=== PATIENT | female | born 1955 | race Caucasian/White ===

== ENCOUNTER 2019-03-19 07:46 | Emergency (ER) | payer SELFPAY ==
[2019-03-19] VITALS (14 sets, daily range): BP systolic 97–140; BP diastolic 54–95; PULSE 76–93; RESP 7–31; TEMP 36.7; O2SAT 89–99
--- NOTE | 2019-03-19 07:52 | DI.RAD_ITS ---
SYMPTOM/DIAGNOSIS: SHORTNESS OF BREATH, COUGH PORTABLE AP CHEST: 03/19 The heart is not enlarged. The lungs appear clear and well expanded. CONCLUSION: No evidence of acute disease.
--- NOTE | 2019-03-19 07:53 | ED.GENADUL_ITS ---
Discharge Plan Disposition Patient Disposition: HOME Condition: Stable Discharge Details Chief Complaint: SOB Clinical Impression: COPD exacerbation Primary Care Provider: Rajendra Franco ED Provider: Kadeem Chapa Home Meds and New Rx's Prescriptions: New prednisone 20 mg tablet 60 mg PO DAILY 5 Days Qty: 15 RF: 0 levofloxacin 750 mg tablet 750 mg PO DAILY Qty: 4 RF: 0 Continued acetaminophen [Acetaminophen Extra Strength] 500 MG tablet 1,000 mg PO Q4H PRN RF: 0 Flovent HFA 120 PUFF HFA aerosol inhaler 2 puff Inhalation BID Qty: 1 RF: 0 albuterol sulfate [ProAir HFA] 200 PUFF/INH HFA aerosol inhaler 2 puff Inhalation Q4H PRN PRNQty: 1 RF: 0 Discharge Instructions Instructions: COPD (Chronic Obstructive Pulmonary Disease) (ED) Additional Instructions: follow up with your primary care provider within 1-2 weeks if you feel more ill, have worsening shortness of breath or chest pain/pressure return to the emergency department Medical Decision Making 63 yo female with hx of halfway smoking history comes in with dyspnea and cough worsening over a week without chest pain/pressure, fevers, recent travel. She was given albuterol with ems en route and states it did help her symptoms. On exam she is in no severe distress able to speak in full sentences. She has coarse breath sounds bilaterally in all lung cowan with wheezing at the apices and prolonged expiratory phase consistent with copd exacerbation. Will treat with steroids and duonebs, and given her cough obtain cxr to eval for infiltrate. Denies chest pain or pressure, no jvd or peripheral edema so feel unlikely this is due to acs or chf. She has no evidence of dvt on exam, no pleuritic chest pain and her exam is consistent with copd so doubt PE at this time. NO distant heart sounds so doubt pericardial effusion/tamponade pt's labs and xray unremarkable, she remains stable. 90% on room air in no distress with improved lung sounds. Given increased cough will start oral abx and have her f/u with pcp withn a week and return precautions given Differential Diagnosis Differential Diagnosis: copd, pna, chf, acs Medical Records Medical records reviewed: Yes I reviewed the patient's medical records. Imaging Data Radiologic Study: Attestation: I personally reviewed and interpreted this imaging study as follows: Imaging: X-Ray Radiologist's impression: no acute findings Lab Data Lab results reviewed: Yes I reviewed the patient's lab results. ECG Data Attestation: I personally reviewed and interpreted this ECG (s) as follows: Prior ECG tracings: not available for review Interpretation: sinus rhythm, rate of 80, pr 132, qtc 456 HPI General Mode of arrival: EMS . Date/Time Provider Initiated Documentation: 03/19/19 07:49 . Limitations to Documentation: no limitations . Information obtained by: patient . History of Present Illness 63 year old F presents to the emergency department with the chief complaint of shortness of breath, described as moderate, Patient started experiencing this week(s) (2) No relieving factors improve symptom(s), No exacerbating factors reported . Patient did receive the following treatments prior to arrival, other (albuterol with ems) Related Data Home Medications Medication Instructions Recorded Confirmed acetaminophen [Acetaminophen Extra 1,000 mg PO Q4H PRN 07/05/14 03/19/19 Strength] Flovent HFA 2 puff INHALATION BID #1 inh 01/05/16 03/19/19 albuterol sulfate [ProAir HFA] 2 puff INHALATION Q4H PRN PRN #1 01/14/18 03/19/19 inh levofloxacin 750 mg PO DAILY #4 tab 03/19/19 prednisone 60 mg PO DAILY 5 Days #15 tab 03/19/19 Previous Rx's Medication Instructions Recorded Flovent HFA 2 puff INHALATION BID #1 inh 01/05/16 albuterol sulfate [ProAir HFA] 2 puff INHALATION Q4H PRN PRN #1 01/14/18 inh levofloxacin 750 mg PO DAILY #4 tab 03/19/19 prednisone 60 mg PO DAILY 5 Days #15 tab 03/19/19 Allergies Allergy/AdvReac Type Severity Reaction Status Date / Time oxycodone Allergy rash Unverified 03/19/19 08:18 Review of Systems Review of Systems ROS Unobtainable: All systems reviewed & are unremarkable except as noted in HPI and below Constitutional Constitutional: Denies chills, Denies fever(s) and Denies weakness ENT Ears, Nose, Mouth, and Throat: Denies change in voice Cardiovascular Cardiovascular: Denies chest pain Gastrointestinal Gastrointestinal: Denies abdominal pain, Denies nausea and Denies vomiting Musculoskeletal Musculoskeletal: Denies joint swelling Neurologic Neurologic: Denies weakness PFSH Social History Smoking/Tobacco Use Status: Current every day Tobacco Type: cigarettes Drug use: Never Do you feel safe in your relationship?: Yes Exam Const General: no acute distress Orientation: alert HENMT Head: normal to inspection Ears: external ears normal General nose exam: external nose normal Mouth: moist mucous membranes Eyes General: appearance normal, both eyes and all related structures Neck Neck: normal visual inspection Resp Effort & Inspection: prolonged expiratory phase Cardio Rate: regular rate Skin General skin exam: no rashes or lesions noted Neuro General: alert and oriented x3 Extrem General: normal to inspection Psych Mental Status: mental status grossly normal
[2019-03-19] MEDS: Albuterol/Ipratropium 3 ML UPD VIAL UPD ×2 (08:00→08:10)
[2019-03-19] MEDS: methylPREDNISolone SUCC 125 MG VIAL IVP (08:00)
[2019-03-19 08:13] LABS: Abs Immature Grans 0.03 k/cumm (0.0-0.09); Absolute Basophil Count 0.02 k/cumm (0.0-0.2); Absolute Lymphocyte Count 1.92 k/cumm (1.2-3.4); Absolute Monocyte Count 1.17 k/cumm (0.11-0.7); Absolute Neutrophil Count 7.77 k/cumm (1.2-6.7); Basophils % 0.2; Eosinophils % 0.5; HGB 12.2 g/dL (12.0-15.5); Immature Grans % 0.3; Lymphocytes % 17.5; Mean Corp. HGB Concentration 31.3 g/dL (32.0-36.0); Mean Corpuscular Volume 102.4 fL (80-95); Mean Platelet Volume 10.3 fL (8.0-11.0); Monocytes % 10.7; Neutrophils % 70.8; Platelet Count 314 x1000/uL (130-400); RBC 3.81 m/cumm (4.00-5.20); RBC Distribution Width 12.8 % (11.7-14.6); White Blood Cell Count 10.97 k/cumm (4.4-10.8)
[2019-03-19 08:20] LABS: Absolute Eosinophil Count 0.05 k/cumm (0.0-0.7)
[2019-03-19 08:26] LABS: INR 0.9 (0.9-1.1); PTT Activated 27.2 sec (21.0-31.4); Prothrombin Time 9.4 sec (9.3-11.0)
[2019-03-19 08:33] LABS: ALT 39 U/L (14-59); AST 33 U/L (15-37); Albumin 3.3 g/dL (3.4-5.0); Alkaline Phosphatase 77 U/L (46-116); Anion Gap 8.1 mmol/L (3-11); BUN 8 mg/dL (7-18); Bilirubin, Total 0.4 mg/dL (0.2-1.0); CO2 27.9 mmol/L (21.0-32.0); CREATININE 0.79 mg/dL (0.55-1.02); Calcium 8.1 mg/dL (8.5-10.1); Chloride 105 mmol/L (98-107); Glucose 104 mg/dL (70-100); Magnesium 1.9 mg/dL (1.8-2.4); NT-proBNP 284 pg/mL; Potassium 3.8 mmol/L (3.5-5.1); Sodium 141 mmol/L (136-145); Total Protein 7.3 g/dL (6.4-8.2)
[2019-03-19 08:34] LABS: Troponin I < 0.05 ng/mL (0.00-0.06)
[2019-03-19] MEDS: levoFLOXacin 500 MG, levoFLOXacin 250 MG 750 MG PO ×2 (08:55→08:56)
== END 2019-03-19 09:05 | disposition home or self-care (01) ==
PROVIDERS: Emergency Provider Emergency Medicine; PCP Specialist/Technologist Athletic Trainer
DX: J44.1 Chronic obstructive pulmonary disease with (acute) exacerbation (principal); F17.210 Nicotine dependence, cigarettes, uncomplicated
CPT/HCPCS: 36415; 80053; 93005; 94640; 96374; 99285; 71045; 83735; 83880; 84484; 85025; 85610; 85730; 93010; J2930; J7620

== ENCOUNTER 2020-11-15 07:12 | Outpatient (CLI) | payer MEDICARE, SELFPAY ==
[2020-11-15 11:35] LABS: HCT 40.2 % (36.0-46.0); HGB 13.2 g/dL (11.2-15.7); MCH 32.6 pg (27.0-33.0); MCHC 32.8 % (32.0-36.0); MCV 99.3 fL (80-95); MPV 10.7 fL (8.0-11.0); Platelet Count 289 10^3/uL (130-400); RBC 4.05 10^6/uL (3.93-5.22); RDW 12.5 % (11.7-14.6); RDW-SD 45.5 fL; WBC 8.68 10^3/uL (4.4-10.8)
[2020-11-15 11:48] LABS: Hemoglobin A1C 5.8 % (<5.7)
[2020-11-15 12:10] LABS: Anion Gap 9.6 mmol/L (3-11); BUN 10 mg/dL (7-18); CO2 26.4 mmol/L (21.0-32.0); CREATININE 0.8 mg/dL (0.55-1.02); Calcium 9.1 mg/dL (8.5-10.1); Calculated LDL 126 mg/dL (<100); Chloride 107 mmol/L (98-107); Cholesterol 199 mg/dL (<200); Glucose 92 mg/dL (74-106); HDL Cholesterol 54 mg/dL (40-60); Potassium 4.4 mmol/L (3.5-5.1); Sodium 143 mmol/L (136-145); Triglyceride 98 mg/dL (<150)
== END 2020-11-15 07:13 | disposition home or self-care (01) ==
PROVIDERS: PCP Nurse Practitioner Family; Visit Provider Nurse Practitioner Family
DX: D64.9 Anemia, unspecified (principal); R73.09 Other abnormal glucose; E78.89 Other lipoprotein metabolism disorders; Z83.3 Family history of diabetes mellitus
CPT/HCPCS: 36415; 80048; 80061; 85027; 83036

== ENCOUNTER 2021-03-27 02:52 | Outpatient (CLI) | payer MEDICARE, SELFPAY ==
[2021-03-27 09:24] LABS: Calculated LDL 129 mg/dL (<100); Cholesterol 200 mg/dL (<200); HDL Cholesterol 58 mg/dL (40-60); Triglyceride 68 mg/dL (<150)
== END 2021-03-27 02:53 | disposition home or self-care (01) ==
LOC: LBO 02:52
PROVIDERS: PCP Nurse Practitioner Family; Visit Provider Nurse Practitioner Family
DX: Z00.00 Encounter for general adult medical examination without abnormal findings (principal); D64.9 Anemia, unspecified
CPT/HCPCS: 36415; 80061

== ENCOUNTER → 2021-04-13 07:47 | Outpatient (BNVA) | payer MEDICARE, SELFPAY | PROVIDERS: PCP Nurse Practitioner Family; Referring Provider Nurse Practitioner Family; Visit Provider Physical Therapy Assistant | DX: Z12.11 Encounter for screening for malignant neoplasm of colon (principal); Z86.010 Personal history of colon polyps; J44.9 Chronic obstructive pulmonary disease, unspecified ==

== ENCOUNTER 2021-04-21 02:38 | Outpatient (CLI) | payer MEDICARE, SELFPAY ==
[2021-04-21 10:30] LABS: Source Nasal/Nares
[2021-04-21 18:55] LABS: COVID-19 PCR Negative (Negative)
== END 2021-04-21 02:39 | disposition home or self-care (01) ==
LOC: LBO 02:38
PROVIDERS: PCP Nurse Practitioner Family; Visit Provider Surgery
DX: Z20.822 Contact with and (suspected) exposure to COVID-19 (principal); Z01.818 Encounter for other preprocedural examination
CPT/HCPCS: 87635

== ENCOUNTER 2021-04-24 07:38 | Day surgery (SDC) | payer MEDICARE, SELFPAY ==
--- NOTE | 2021-04-24 06:49 | W.COLOREPORT ---
Colonoscopy Report Date of procedure: 04/24/21 Pre-op diagnosis general: Colon Cancer Screening / Hx of polyps Post-op diagnosis procedure note: other (polyps) Procedure: Colonoscopy with polypectomy Surgeon: Orly Suggs Anesthesia Type: General:No Airway (Heath Marie, GIANCARLO) Estimated blood loss (mL): 3 Pathology: other (Transverse polyps, descending polyp) Complications: None Disposition: same day Indications: The patient is here for Colonoscopy pre-op. Her last screening was in 2014 and was remarkable for tubular adenomatous polyps. She has no family history of colon cancer. She has not had any bowel habit changes. -Discussed colonoscopy bowel prep as well as the procedure. Discussed possible complications of the procedure to include bleeding, pain, perforation, missed small lesion/polyp, sore throat, aspiration and adverse reaction to the medications. Questions were answered to patient?s satisfaction. No guarantees were implied or given. Prep: Miralax/Dulcolax Procedure Start Time: 08:51 Procedure End Time: 09:14 Retraction Time: 14 minutes Findings: 2 small sessile polyps. Procedure Description: After informed consent was obtained the patient was taken to the procedure room and placed in a left decubitous position. Monitors were applied and a time out was done. The patients name, date of , procedure, allergies to medications and metal in their body was reviewed. The patient was then sedated. Once sedated and comfortable a rectal exam was done. External exam was normal. Internal exam revealed a normal sphincter tone and no palpable masses. The scope was then introduced and retro-flexed. No internal hemorrhoids, polyps or masses were identified on retro-flexion. The scope was then advanced to the cecum without difficulty. The ileocecal vlave and appendiceal orifice were identified. The prep was adequate. The scope was then slowly retracted over 14 minutes back into the rectum. Polyps were removed with cold forceps in the Transverse and descending colon. There was no diverticulosis noted. The scope was removed and the patient was woken up and taken back to Same day surgery in stable condition. The patient tolerated the procedure well and there were no immediate complications. Follow up: The patient should follow up in 5 years unless they develop changes in bowel habits or other new gastrointestinal complaints.
--- NOTE | 2021-04-24 06:50 | W.PM.DSUDISC ---
Discharge Plan Disposition Patient Disposition: HOME Condition: Good Discharge Details Reason For Visit: Colonoscopy Attending Provider: Orly Suggs Primary Care Provider: Kirstie Vee Home Meds and New Rx's Prescriptions: Continued tramadol 50 mg tablet 50 mg PO QHS RF: 0 acetaminophen [Acetaminophen Extra Strength] 500 MG tablet 1,000 mg PO Q4H PRN RF: 0 Qvar RediHaler 80 mcg/actuation HFA aerosol breath activated 2 inh inhalation BID RF: 0 albuterol sulfate [ProAir HFA] 200 PUFF/INH HFA aerosol inhaler 2 puff Inhalation Q4H PRN PRNQty: 1 RF: 0 Discontinued polyethylene glycol 3350 17 gram/dose powder 238 g PO ONCE Qty: 238 RF: 0 bisacodyl [Dulcolax (bisacodyl)] 5 mg tablet,delayed release (DR/EC) 5 mg PO ONCE Qty: 4 RF: 0 Discharge Instructions Instructions: Colorectal Polyps (DC) Additional Instructions: Findings: 2 small polyps Follow up: 5 years Please call if you develop: fevers >101.5 Nausea or Vomiting Abdominal pain that is not transient Rectal bleeding that is more then a tbsp A hard abdomen and inability to pass gas DAY SURGERY UNIT POST ENDOSCOPY INSTRUCTIONS Instructions for everyone who is given Anesthesia: For your safety, please do the following for the next 24 Hours: a. Do not drive or operate dangerous equipment b. Do not drink alcohol beverages or use any recreational drugs for the first 24 hours or while taking pain medications. The medications in your body may have a reaction that can be dangerous. c. Do not make any important decisions or sign any important papers 1. Generally there are no restrictions on your activity after a day or so has gone by, but you may feel a bit fatigued for a few days. 2. After you arrive home you may have a light meal and return to a normal diet as you can tolerate it without feeling sick to your stomach. 3. After surgery, you may feel pain or discomfort. This should be only transient, but if it persists please contact your doctor. 4. If there are any questions regarding the findings of your procedure, please feel free to contact your doctor. 6. If you are unable to contact your doctor with a problem, contact the hospital at [phone]. 7. Continue all your regular medications unless directed otherwise. I understand the above instructions and have no questions. Signature of Patient or Responsible Adult Escort Date/Time Name of Responsible Adult Escort Signature of Nurse Date/Time Activity:: Activity as Tolerated Diet:: As Tolerated Discharge Orders Discharge Orders: Discharge Order (Routine); Ordered 04/24/21 Ordered By: Orly Suggs
[2021-04-24 07:50] VITALS: BP 126/79; PULSE 73; RESP 18; TEMP 36; O2SAT 96
--- NOTE | 2021-04-24 08:12 | W.ANESPRE ---
General Info Date of Service Date Performed: 04/24/21 Height: 5 ft Weight: 73.709 kg Body Mass Index (BMI): 31.7 Surgical Procedure: Operation Date: 04/24/21 09:35 Proposed Procedures Side Surgeon lucero Suggs MD Meds Allergies and Home Medications Allergies Allergy/AdvReac Type Severity Reaction Status Date / Time oxycodone Allergy Mild rash Unverified 04/24/21 07:48 Home Medication Medication Instructions Recorded acetaminophen [Acetaminophen Extra 1,000 mg PO Q4H PRN 07/05/14 Strength] albuterol sulfate [ProAir HFA] 2 puff INHALATION Q4H PRN PRN #1 01/14/18 inh beclomethasone dipropionate 80 2 inh INHALATION BID g 12/02/20 mcg/actuation HFA breath activated aerosol bisacodyl 5 mg tablet,delayed 5 mg PO ONCE #4 tab 04/13/21 release polyethylene glycol 3350 17 238 g PO ONCE #238 g 04/13/21 gram/dose oral powder tramadol 50 mg tablet 50 mg PO QHS 04/13/21 Current Visit Medications: Current Medications Generic Name Dose Route Start Last Admin Trade Name Freq PRN Reason Stop Dose Admin Hyoscyamine Sulfate 0.125 mg 04/24/21 06:51 Hyoscyamine 0.125 Mg Sl/Oral/Chew SL DIRECTED PRN Ringer's Solution 1,000 mls @ 80 mls/hr 04/24/21 06:00 IV 05/21/21 23:59 INFUSION RIVAS IV Miscellaneous Supplies 1 each 04/24/21 06:00 Iv Access IV 05/21/21 23:59 DIRECTED RIVAS Ondansetron HCl 4 mg 04/24/21 06:51 Ondansetron 4 Mg/2 Ml Vial IVP Q4H PRN PRN Nausea / Vomiting Sodium Chloride 0 ml 04/24/21 06:00 Normal Saline Flush 10 Ml Syr IV 05/21/21 23:59 PRN PRN Sodium Chloride 0 ml 04/24/21 06:00 Normal Saline 10 Ml Vial IJ 05/21/21 23:59 DIRECTED PRN Sterile Water 0 ml 04/24/21 06:00 Water,Injection,Sterile 10 Ml Vial IJ 05/21/21 23:59 DIRECTED PRN PFSH Active Problems Active Problems: Problem Status Onset Code Anemia D64.9 SOB (shortness of breath) R06.02 COPD (chronic obstructive pulmonary disease) J44.9 Tobacco use disorder F17.200 Asthma, intermittent J45.20 Chronic pain G89.29 Headache R51.9 Fibrocystic breast disease N60.19 GERD (gastroesophageal reflux disease) K21.9 Heart murmur R01.1 Screening for colon cancer Z12.11 Medical History Medical History Chest pain Per pt. states she has not had chest pain in years, and it was nothing when she had it years ago. Tubular adenoma of colon Surgical History Surgical History (Updated 04/24/21 @ 07:45 by Edmar Hart) History of laparoscopic appendectomy Hx of section Hx of colonoscopy Hx of hysterectomy Tobacco Smoking/Tobacco Use Status: Current every day Tobacco Type: cigarettes Smoking cigarettes per day: 10 Years smoked: 40 Alcohol Alcohol Intake: never Substance Use Substance use: Never Substance use type: does not use Vital Signs and Lab Results Vital Signs Most Recent Vital Signs in EMR: Most Recent Vital Signs Temp Pulse Resp BP Pulse Ox 36 C L 73 18 126/79 96 04/24/21 07:50 04/24/21 07:50 04/24/21 07:50 04/24/21 07:50 04/24/21 07:50 Lab Results Blood Type / Crossmatch: No Data to Display Complete Blood Count: No Data to Display Complete Metabolic Panel: No Data to Display Liver Function Panel: No Data to Display Coagulation Panel: No Data to Display Cardiac Panel: No Data to Display Arterial Blood Gas: No Data to Display Venous Blood Gas: No Data to Display Pancreas Panel: No Data to Display Thyroid Panel: No Data to Display Infectious Disease: Coronavirus (COVID-19)(PCR) Negative (Negative) 04/21/21 08:53 04/21/21 Coronavirus 2019 Source Nasal/Nares 04/21/21 08:53 04/21/21 Blood Cultures: No Data to Display Toxicology Panel: No Data to Display Imaging and Studies Imaging and Studies Stress Test Summary: Date of Exam: 04/16/16ex: F : 5Age: 60 Exam(s) Impressions: Normal study after pharmacologic stress. Summary: 1. Myocardial perfusion imaging: No myocardial perfusion defects noted. 2. The calculated left ventricular ejection fraction after stress: 59%. LV global systolic function is normal. No left ventricular regional motion abnormality. Anesthesia Assessment and Plan Anesthesia History Personal History: No History of Anesthesia Complications Family History: No Family History of Anesthesia Complications Exercise Tolerance Exercise Tolerance: Metabolic Equivalents>4 Pertinent Negatives Pertinent Negatives: No Symptoms of GERD and No Major Cardiovascular Symptoms or Complaints Cardiac & Pulmonary Exam Cardiac Exam: Normal S1/S2 Heart Sounds Pulmonary Exam: Clear Bilateral Breath Sounds Airway Exam Known Difficult Airway: No Mallampati Class: 2 Mouth Opening: Normal (> 3cm) Thyromental Distance: Greater than 3 cm Neck Range of Motion: Full ROM Neck Circumference: Normal Teeth Condition: Removable Dentures/Plates Upper and Removable Dentures/Plates Lower ASA Classification ASA Score: ASA 2 Emergency Case?: No NPO Status NPO Status: NPO Clears >2 hours, Solids >8 hours Anesthesia Plan Resuscitation Status: Full Code Anesthesia Technique: General Anesthesia Airway Planned: Natural Airway Monitors Used: Standard Monitors
[2021-04-24] MEDS: Lactated Ringers 1,000 ML 80 ML IV (08:15)
[2021-04-24 08:37] VITALS: BMI 31.7
--- NOTE | 2021-04-24 09:05 | BOWEL_PTH ---
PATIENT: Shakira Burrows LOC: [facility] U#:[id number] AGE/SX: 65/F ROOM: RE04/24/[address]: Orly Suggs MD : [id number] BED: DIS: 04/24/2021 SPEC #: [id number] RECD: 04/24/21 10:36 STATUS: TRENA REQ #: [id number] DEEPAK: 04/24/21 09:[address]: Orly Suggs DEPT: Surgical Specimen RECD BY: Rupinder Jerry ENTERED: 04/24/21 10:37 SP TYPE: Bowel OTHR DR: Kirstie Vee Tissues: 1 - BIOPSY BOWEL 2 - BIOPSY BOWEL Procedures: GROSS AND MICRO LEVEL 4 Comments: [id number]
[2021-04-24 09:25] VITALS: BP 119/73; PULSE 64; RESP 20; TEMP 36.2; O2SAT 95
--- NOTE | 2021-04-24 09:42 | W.ANESPOSTOP ---
Postoperative Evaluation Date, Time and Location Date Performed: 04/24/21 Time Performed: 09:30 Patient Location: Day Surgery Unit Vital Signs Most Recent Imported Vital Signs: Most Recent Vital Signs Temp Pulse Resp BP Pulse Ox 36.2 C L 64 20 119/73 95 04/24/21 09:25 04/24/21 09:25 04/24/21 09:25 04/24/21 09:25 04/24/21 09:25 Pain Score Most Recent Pain Score: Most Recent Pain Score Pain Level 0 04/24/21 09:25 Assessment Mental Status: Awake (Alert & Oriented to Patient Baseline) Airway and Respiratory Function: Patent airway with normal (patient baseline) respiratory exam Cardiovascular Function: Hemodynamically Stable Hydration Status: Adequately Hydrated Nausea & Vomiting: No Nausea or Vomiting Pain: Pt. Denies Any Pain Peripheral Nerve Block: Patient did not receive a nerve block
[2021-04-24 09:57] VITALS: BP 114/69; PULSE 65; RESP 18; TEMP 36; O2SAT 97
== END 2021-04-24 10:20 | disposition home or self-care (01) ==
LOC: SUR 07:38
PROVIDERS: PCP Nurse Practitioner Family; Visit Provider Surgery
PROC: 0DJD8ZZ Inspection of Lower Intestinal Tract, Via Natural or Artificial Opening Endoscopic (ICD-10-PCS; CPT 45378; principal; 2021-04-24 09:30)
DX: Z12.11 Encounter for screening for malignant neoplasm of colon (principal); D12.5 Benign neoplasm of sigmoid colon; Z86.010 Personal history of colon polyps; D12.3 Benign neoplasm of transverse colon
CPT/HCPCS: 45380; 88305

== ENCOUNTER → 2021-12-01 00:45 | Outpatient (CLI) | payer MEDICARE, SELFPAY ==
--- NOTE | 2021-12-01 14:15 | DI.CTLCSR_ITS ---
Exam(s) CT CHEST LUNG CANCER SCREEN EXAM: CT CHEST LUNG CANCER SCREEN CLINICAL HISTORY: H/O CIGARETTE SMOKER, Z87.891 TECHNIQUE: Imaging Protocol: Axial computed tomography images with coronal and sagittal reformatted images were created and reviewed COMPARISON: CT CHEST FOR PULMONARY EMBOLUS from 01/05/2016 FINDINGS: Tracheobronchial tree: Patent where visualized. Mediastinum and Karla: No dominant adenopathy or fluid collection. Pulmonary parenchyma: No consolidation or dominant measurable mass. Mild atelectasis anterior inferio r lingula and inferior right middle lobe. Mild emphysematous changes. Lung Nodules: None. Pleura: No effusion or pneumothorax. Heart: The heart is not dilated. No coronary artery calcifications are seen. Aorta: Thoracic aorta non-dilated. Upper abdomen: Unremarkable. Bones: Degenerative disc changes in the thoracic spine. Soft Tissues: Unremarkable. IMPRESSION: No suspicious pulmonary nodules. Category Lung RADS Cat 1 - Negative: No nodules and definitely benign nodules Lung-RADS 1.0 CATEGORIES: Category 0 - Prior chest CT exam(s) being located for comparison. Category 1 - Annual screening in 12 months. No nodules or definitely benign nodules. Category 2 - Annual screening in 12 months. Benign appearance. Nodules with low likelihood of becomin g active cancer. Category 3 - 6-month follow-up. Probably benign. Short-term follow-up suggested. Nodules with low lik elihood of becoming active cancer. Category 4A - 3-month follow-up and CT/PET if >8 mm in size. Suspicious finding. Findings which requi re additional testing. Category 4B - Findings which require additional testing and tissue sampling. Category 4X - Category 3 or 4 nodules with additional features or imaging findings that increases the suspicion of malignancy. Modifier S- Potentially clinically significant findings (non lung cancer) RADIATION DOSE DELIVERED: 68.36mGy.cm Total DLP 1.84mGy CTDIvol DATA REPOSITORY: All CT scans at this facility are submitted to the National Radiology Data Registry (NRDR) Dose Index Registry (DIR) with the [employer] ([employer]). RADIATION OPTIMIZATION: All CT scans at this facility use at least one of these dose optimization te chniques: automated exposure control; mA and/or kV adjustment per patient size (includes targeted exa ms where dose is matched to clinical indication); or iterative reconstruction.
== END ==
PROVIDERS: PCP Nurse Practitioner Family; Visit Provider Nurse Practitioner Family
DX: Z12.2 Encounter for screening for malignant neoplasm of respiratory organs (principal); Z87.891 Personal history of nicotine dependence; J43.8 Other emphysema; J98.11 Atelectasis
CPT/HCPCS: 71271

== ENCOUNTER → 2022-03-02 | Outpatient (CLI) | payer MEDICARE, SELFPAY ==
--- NOTE | 2022-03-02 | DI.DEXA_ITS ---
Exam(s) XR DEXA BONE DENSITY W/WO BRITTANY EXAM: XR DEXA BONE DENSITY W/WO BRITTANY CLINICAL HISTORY: SCREENING FOR OSTEOPOROSIS IN POST MENOPAUSAL WOMAN,Z78.0,PREVENTATIVE TECHNIQUE: Routine DEXA evaluation of the lumbar spine, hip, or forearm. COMPARISON: No exams were available for comparison FINDINGS: Performed on a Hologic unit. Lateral image: No compression fracture evident. Lumbar Spine total T-score: -0.6 Hip total T-score:-0.5 Independent reading at the level of the femoral neck yields at T-score of -1.0. Forearm total T-score: -0.4 IMPRESSION: Bone mineral density measures in the normal range. Fracture risk is low. Note: Any spine fracture indicates 5x risk for subsequent spine fracture and 2x risk for subsequent h ip fracture. World Health Organization criteria for BMD interpretation classify patients: Normal...... T- Score at or above -1.0 Osteopenic... T- Score between -1.0 and -2.5 Osteoporosis... T-Score at or below -2.5
== END ==
PROVIDERS: PCP Nurse Practitioner Family; Visit Provider Nurse Practitioner Family
DX: Z13.820 Encounter for screening for osteoporosis (principal); Z78.0 Asymptomatic menopausal state
CPT/HCPCS: 77080

== ENCOUNTER 2022-03-12 00:47 | Observation (INO) | payer MEDICARE, SELFPAY ==
[2022-03-12] VITALS (40 sets, daily range): BP systolic 120–165; BP diastolic 52–79; PULSE 71–140; RESP 4–25; TEMP 35.7–37.2; O2SAT 90–100
--- NOTE | 2022-03-12 00:45 | RT.EKG_ITS ---
APPROVED REPORT Exam: Resting ECG Reason for Exam: sob Patient Location: E HR:101 bpm ECG Measurements Heart Rate 101 AXIS NC 141 P 83 QRSd 95 QRS 67 QT 370 T 13 QTc 479 Conclusion Sinus tachycardia...rate> 99 Atrial premature complexes...SV complexes w/ short R-R intvls Physician: no stemi, stable
--- NOTE | 2022-03-12 00:45 | DI.RAD_ITS ---
Exam(s) XR PORTABLE CHEST AP EXAM: XR PORTABLE CHEST AP CLINICAL HISTORY: sob, copd TECHNIQUE: 2D digital imaging was performed. COMPARISON: CR XR PORTABLE CHEST AP from 03/19/[address] CHEST LUNG CANCER SCREEN from 12/01/2021 FINDINGS: Oxygen tubing overlies the left chest. Monitor leads are noted. LUNGS: Clear. No pleural abnormality seen. HEART: Normal. AORTA: Normal. BONES: Degenerative changes in the thoracic spine and left shoulder Soft tissues: Unremarkable. IMPRESSION: No acute findings. DATA REPOSITORY: RADIATION DOSE DELIVERED:
--- NOTE | 2022-03-12 00:58 | ED.GENADUL_ITS ---
Discharge Plan Disposition Patient Disposition: [facility] INPATIENT Condition: Improving Discharge Details Chief Complaint: RespSymp Clinical Impression: Acute respiratory distress, COPD exacerbation, Hypoxemia Primary Care Provider: Kirstie Vee ED Provider: Malik Espinal Home Meds and New Rx's Prescriptions: No Action tramadol 50 mg tablet 50 mg PO QHS acetaminophen [Acetaminophen Extra Strength] 500 MG tablet 1,000 mg PO Q4H PRN Qvar RediHaler 80 mcg/actuation HFA aerosol breath activated 2 inh inhalation BID albuterol sulfate [ProAir HFA] 200 PUFF/INH HFA aerosol inhaler 2 puff Inhalation Q4H PRN PRNQty: 1 0RF Medical Decision Making 66-year-old female with a past medical history of COPD with a previous tobacco smoker, presents today for evaluation of shortness of breath. Patient states that starting this morning she felt difficulty breathing, and notable tightness in her chest similar to her previous COPD exacerbations. No history of intubation in the past. She has not smoked for few years. She denies any aggregates. She used her inhalers but these did not help at all. She denies any chest pain. No vomiting or diarrhea. No fever or chills. No other complaints at this time. Exam demonstrates patient in mild respiratory distress, she is hypoxic in the low 70s, tachypneic, notable intercostal retractions and diffuse wheezes throughout. Symptoms consistent with severe COPD exacerbation. We will give 3 duo nebs, Solu-Medrol, and rapid bolus of 2 g of mag sulfate. We will add supplemental oxygen, monitor closely and reassess. 2:54 AM Patient had notable improvement after breathing treatments, magnesium and Solu- Medrol. Wheezes were still present, but slightly improved. Intercostal retractions improved. Patient feeling much better. She still is needing supplemental oxygen though. ABG shows mild acidosis secondary to an elevated PCO2. We will start positive pressure ventilation to help assist her in blowing off the PCO2. Troponin and EKG are unremarkable/stable. COVID flu and RSV are negative. Chest x-ray shows no evidence of pneumonia. Patient demonstrates much more stable respiratory status at this point. I do feel that the patient would benefit from admission for continued breathing treatments and monitoring. Discussed the case with the hospitalist , he agrees with the assessment and plan. I have extensively reviewed the treatment plan with the [facility]. I have addressed all patient concerns at this time. I have also discussed the plan with the admitting physician and they agree with the current assessment and plan and have agreed to assume responsibility for the patient. All parties demonstrate verbal understanding and agreement with our assessment and plan at this time. The documentation in this chart was dictated using [employer] dictation software. Please excuse any dictation errors. FINDINGS: Lungs: Mild bronchial cuffing with prominence of the pulmonary vascularity. No focal pulmonary infiltrate or edema. Pleural spaces: No pleural effusion. No pneumothorax. Heart/Mediastinum: The cardiac silhouette is normal in size. Bones/joints: No acute osseous abnormality. IMPRESSION: Mild bronchial cuffing suggesting bronchitis or reactive airways disease (asthma). Mild vascular congestion without consuelo edema or infiltrate. Thank you for allowing us to participate in the care of your patient. Dictated and Authenticated by: Susanna June MD 03/12/2022 2:15 AM Eastern Time ([place] & [place]) HPI General Date/Time Provider Initiated Documentation: 03/12/22 00:54 . HPI Narrative: 66-year-old female with a past medical history of COPD with a previous tobacco smoker, presents today for evaluation of shortness of breath. Patient states that starting this morning she felt difficulty breathing, and notable tightness in her chest similar to her previous COPD exacerbations. No history of intubation in the past. She has not smoked for few years. She denies any aggregates. She used her inhalers but these did not help at all. She denies any chest pain. No vomiting or diarrhea. No fever or chills. No other complaints at this time. Related Data Home Medications Medication Instructions Recorded Confirmed acetaminophen 500 mg tablet 1,000 mg PO Q4H PRN 07/05/14 04/21/21 (Acetaminophen Extra Strength) albuterol sulfate 90 mcg/actuation 2 puff inhalation Q4H PRN PRN #1 01/14/18 04/24/21 aerosol inhaler (ProAir HFA) inh beclomethasone dipropionate 80 2 inh inhalation BID 12/02/20 04/24/21 mcg/actuation HFA breath activated aerosol (Qvar RediHaler) tramadol 50 mg tablet 50 mg PO QHS 04/13/21 04/24/21 Previous Rx's Medication Instructions Recorded albuterol sulfate 90 mcg/actuation 2 puff inhalation Q4H PRN PRN #1 01/14/18 aerosol inhaler (ProAir HFA) inh Allergies Allergy/AdvReac Type Severity Reaction Status Date / Time oxycodone Allergy Mild rash Unverified 04/24/21 07:48 General AMA: 2 Review of Systems All systems reviewed & are unremarkable except as noted in HPI and below PFSH All Active Problems (Updated 03/12/22 @ 02:56 by Malik Espinal DO) Acute respiratory distress (Acute) COPD exacerbation (Acute) Hypoxemia (Acute) Tubular adenoma of colon (Acute) Anemia (Chronic) SOB (shortness of breath) (Acute) COPD (chronic obstructive pulmonary disease) (Chronic) Tobacco use disorder (Acute) Asthma, intermittent (Acute) Chronic pain (Chronic) Headache (Acute) Fibrocystic breast disease (Acute) GERD (gastroesophageal reflux disease) (Chronic) Heart murmur (Acute) Screening for colon cancer (Acute) Medical History Chest pain Per pt. states she has not had chest pain in years, and it was nothing when she had it years ago. Surgical History History of laparoscopic appendectomy Hx of section Hx of colonoscopy (~04/2021) Hx of hysterectomy Social History Smoking/Tobacco Use Status: Current every day Tobacco Type: cigarettes Years smoked: 40 Smoking risk assessment performed?: Yes Alcohol Intake: never Drug use: Never Substance use type: does not use Do you feel safe at home: Yes Do you feel safe in your relationship?: Yes Exam Narrative Exam Narrative: 1.Const: Well-nourished, Well-developed, appearing stated age 2.Eyes: PERRL, no conjunctival injection, and symmetrical lids. 3.ENT: Atraumatic external nose and ears. Moist MM. Neck: Symmetric, trachea midline, No thyromegaly. 4.CVS: +S1/S2, No murmurs or gallops. Peripheral pulses 2+ and equal in all extremities. Brisk capillary refill in all extremities. 5.RESP: Labored breathing, notable wheezes throughout. No rhonchi or rales. Intercostal retractions present. 6.GI: Soft, Nontender/Nondistended, No hepatosplenomegaly. No guarding or rebound. 7.MSK: Normocephalic/Atraumatic, Extremities w/o deformity or ttp No cyanosis or clubbing, Normal movement of all extremities 8.Skin: Warm, Dry. No rashes or lesions. 9.Neuro: engineering administrator II-XII grossly intact. Sensation grossly intact, no focal neurologic deficits. 10.Psych: (AAO) x3. Appropriate mood and affect
[2022-03-12] MEDS: Albuterol/Ipratropium 3 ML UPD VIAL 9 ML UPD (01:02)
[2022-03-12] MEDS: methylPREDNISolone SUCC 125 MG VIAL IVP (01:23)
[2022-03-12] MEDS: MAGNESIUM SULFATE 2 GM/50 ML BAG IVPB (01:25)
[2022-03-12 01:29] LABS: BE (Venous) 1 mmol/L (-2-3); HCO3 (Venous) 29 mmol/L (23-28); O2 Sat (Venous) 95 %; TCO2 (Venous) 27 mmol/L (24-29); pH (Venous) 7.22 (7.31-7.41); pO2 (Venous) 95 mmHg
[2022-03-12 01:32] LABS: pCO2 (Venous) 71 mmHg (41-51)
[2022-03-12 01:36] LABS: Abs Immature Grans 0.04 10^3/uL (0.0-0.06); Basophils % 0.3; Eosinophils % 1.2; HCT 41.2 % (36.0-46.0); HGB 13.3 g/dL (11.2-15.7); Immature Grans % 0.3; Lymphocytes % 29.1; MCH 31.9 pg (27.0-33.0); MCHC 32.3 % (32.0-36.0); MCV 99 fL (80-95); Monocytes % 6.9; Neutrophils % 62.2; RBC 4.17 10^6/uL (3.93-5.22); RDW 12.6 % (11.7-14.6); RDW-SD 45.9 fL; WBC 14.73 10^3/uL (4.4-10.8)
[2022-03-12 01:47] LABS: Absolute Basophil Count 0.04 10^3/uL (0.0-0.2); Absolute Eosinophil Count 0.18 10^3/uL (0.0-0.7); Absolute Lymphocyte Count 4.29 10^3/uL (1.2-3.4); Absolute Monocyte Count 1.02 10^3/uL (0.1-0.8); Absolute Neutrophil Count 9.16 10^3/uL (1.2-6.7)
[2022-03-12 01:53] LABS: ALT 25 U/L (14-59); AST 20 U/L (15-37); Albumin 3.8 g/dL (3.4-5.0); Alkaline Phosphatase 77 U/L (46-116); Anion Gap 5.7 mmol/L (3-11); BUN 12 mg/dL (7-18); Bilirubin, Total 0.4 mg/dL (0.2-1.0); CO2 32.3 mmol/L (21.0-32.0); CREATININE 0.7 mg/dL (0.55-1.02); Calcium 8.6 mg/dL (8.5-10.1); Chloride 104 mmol/L (98-107); Estimated GFR 94.73 (mL/min/1.73m2); Glucose 140 mg/dL (74-106); Potassium 3.6 mmol/L (3.5-5.1); Sodium 142 mmol/L (136-145); Total Protein 8.3 g/dL (6.4-8.2); Troponin I < 50 ng/L (<or=60)
[2022-03-12 02:08] LABS: COVID-19 PCR Negative (Negative); Influenza A PCR Negative (Negative); Influenza B PCR Negative (Negative); RSV PCR Negative (Negative)
--- NOTE | 2022-03-12 02:16 | DI.VRAD_ITS ---
PROCEDURE INFORMATION: Exam: XR Chest Exam date and time: 03/12/2022 1:39 AM Age: 66 years old Clinical indication: Shortness of breath; Additional info: SOB, copd TECHNIQUE: Imaging protocol: Radiologic exam of the chest. Views: 1 view. COMPARISON: CT CHEST LUNG CANCER SCREEN 12/01/2021 2:04 PM FINDINGS: Lungs: Mild bronchial cuffing with prominence of the pulmonary vascularity. No focal pulmonary infiltrate or edema. Pleural spaces: No pleural effusion. No pneumothorax. Heart/Mediastinum: The cardiac silhouette is normal in size. Bones/joints: No acute osseous abnormality. IMPRESSION: Mild bronchial cuffing suggesting bronchitis or reactive airways disease (asthma). Mild vascular congestion without consuelo edema or infiltrate. Dictated and Authenticated by: Susanna June MD. Ordering:COLEMAN Gan MD
[2022-03-12 02:36] LABS: Source Nasopharynx
--- NOTE | 2022-03-12 02:49 | HPE_ITS ---
Date of service: 03/12/22 Assessment and Plan Assessment and plan (1) COPD exacerbation: Status: Acute Assessment and plan: Patient is medically stable for admission to medical surgical floor. Continue BiPAP as needed for NIPPV support. Wean to regular nasal cannula. Continue IV corticosteroids. Initiate oral antibiotics with Augmentin and Zithromax and check sputum culture and Gram stains as well as urine antigens for Legionella and streptococcal pneumonia. Encourage pulmonary toiletry with incentive spirometry and Acapella. Prescribed Mucinex to help with mucus production. We will start the patient on Spiriva and Symbicort for long-term control of her COPD. We will treat her acutely with DuoNeb treatments. Professional time spent interviewing and examining patient, discussion of goals of care with hospital team (care management, nursing and consulting professionals) was 45 minutes. (2) Acute respiratory distress: Status: Resolved Assessment and plan: Patient initially presented in acute respiratory distress but was successfully stabilized the emergency department. I had a discussion with both Dr. Espinal and the respiratory therapist on [place] regarding patient's stability for admission to the medical floor versus ICU. I personally evaluated the patient in the emergency department and found the patient to be markedly improved over her initial reported condition. Patient herself feels that she is much improved. We will watch her closely. (3) Atrial tachycardia: Status: Acute Assessment and plan: EKG demonstrates an irregular atrial tachycardia. Looking at the P waves 1 could almost make a case for a multifocal atrial tachycardia. There are frequent PACs. History of Present Illness History of Present Illness Chief Complaint: short of breath, wheezing Narrative: 66 yr old female, former smoker (quit 6 mo ago), w/ COPD (not on home oxygen) who presented to the ED w/ 2 day hx of acute dyspnea, productive cough of greenish sputum, and wheezing and was in moderate respiratory distress w/ tachypnea (RR 24) and hypoxia (SPO2 75% on room air) despite use of her inhalers. Onset of her symptoms was this morning. No associated fever or rigors or sputum production but associated w/ chest tightness similar to prior exacerbations. She is not on home oxygen. Her SPO2 came up to 98% on 4 LPM however she required BIPAP and multiple DuoNebs to improve her respirations. Patient is fully vaccinated against COVID and has not been around any ill contacts. Evaluation in the ER included routine labs (CBC, CMP, nasal PCR for SARS-COV2, RSV and influenza(all negative) and EKG and CXR. CMP was remarkable for HCO3 of 32, glucose 140 but otherwise normal LFT and electrolytes and BUN and creatinine. CBC demonstrated leukocytosis of 14,700 w/left shift, no anemia but incr. MCV 99. VBG demonstrated pH 7.22 and PCO2 71. Treatment in the ER included 3 DuoNeb updrafts, solumedrol 125 mg IVP and magnesium sulfate 2 gm IVP and BIPAP. Patient is feeling markedly better and now able to talk in complete sentences. Patient is admitted for COPD exacerbation w/ bronchitis. CXR did not show any infiltrates or effusions or CHF. Review of Systems Constitutional Constitutional: Reports chills and Denies fever(s) Eyes Eyes: Reports system reviewed and no additional complaints, except as documented ENT Ears, Nose, Mouth, and Throat: Reports system reviewed and no additional complaints, except as documented Cardiovascular Cardiovascular: Reports system reviewed and no additional complaints, except as documented, Denies chest pain, Reports dyspnea and Reports dyspnea on exertion Respiratory Respiratory: Reports as per HPI, Reports change in phlegm color, Reports cough, Denies hemoptysis, Reports excessive phlegm production, Reports dyspnea and Reports dyspnea on exertion Gastrointestinal Gastrointestinal: Reports system reviewed and no additional complaints, except as documented Genitourinary Genitourinary: Reports system reviewed and no additional complaints, except as documented Musculoskeletal Musculoskeletal: Reports system reviewed and no additional complaints, except as documented Neurologic Neurologic: Reports system reviewed and no additional complaints, except as documented Endocrine Endocrine: Reports system reviewed and no additional complaints, except as documented Hematologic/Lymphatic Hematologic/Lymphatic: Reports system reviewed and no additional complaints, except as documented Allergic/Immunologic Allergic/Immunologic: Reports system reviewed and no additional complaints, except as documented PFSH All Active Problems (Updated 03/12/22 @ 03:56 by Glenn Azar MD) Atrial tachycardia (Acute) COPD exacerbation (Acute) Hypoxemia (Acute) Tubular adenoma of colon (Acute) Anemia (Chronic) SOB (shortness of breath) (Acute) COPD (chronic obstructive pulmonary disease) (Chronic) Tobacco use disorder (Acute) Asthma, intermittent (Acute) Chronic pain (Chronic) Headache (Acute) Fibrocystic breast disease (Acute) GERD (gastroesophageal reflux disease) (Chronic) Heart murmur (Acute) Screening for colon cancer (Acute) Medical History Chest pain Per pt. states she has not had chest pain in years, and it was nothing when s he had it years ago. Surgical History History of laparoscopic appendectomy Hx of section Hx of colonoscopy (~04/2021) Hx of hysterectomy Social History (Updated 03/12/22 @ 03:41 by Glenn Azar MD) Smoking/Tobacco Use Status: Former Tobacco Use tobacco type: cigarettes Quit Date: 09/09/21 Tobacco: How many years used: 45 Smoking risk assessment performed?: Yes Alcohol Intake: never Drug use: Never Substance use type: does not use Do you feel safe at home: Yes Do you feel safe in your relationship?: Yes Meds Allergies and Home Medications Allergies Allergy/AdvReac Type Severity Reaction Status Date / Time oxycodone Allergy Mild rash Unverified 03/12/22 03:17 Home Medications Medication Instructions Recorded Confirmed Type acetaminophen 500 mg tablet 1,000 mg PO Q4H PRN 07/05/14 03/12/22 History (Acetaminophen Extra Strength) albuterol sulfate 90 mcg/actuation 2 puff inhalation Q4H PRN PRN #1 01/14/18 03/12/22 Rx aerosol inhaler (ProAir HFA) inh beclomethasone dipropionate 80 2 inh inhalation BID 12/02/20 03/12/22 History mcg/actuation HFA breath activated aerosol (Qvar RediHaler) Exam Const General: cooperative, no acute distress, ill appearing acutely and well hydrated Nutritional Appearance: average body habitus Orientation: alert, awake and oriented x3 HENMT Head: normal to inspection and normocephalic Ears: hearing grossly normal bilaterally and external ears normal General nose exam: external nose normal and nares normal Face and sinus: normal facial exam Eyes General: appearance normal, both eyes and all related structures Neck Neck: normal visual inspection, full ROM, no lymphadenopathy, trachea midline, supple, no lymphadenopathy noted and no JVD Carotids: normal carotid upstroke Lymphatic: no lymphadenopathy noted Resp Effort & Inspection: able to speak in complete sentences and cough Quality of cough: wet Auscultation: wheezes expiratory wheezes, inspiratory wheezes and scattered wheezes Percussion: percussion normal Cardio Jugular venous pressure: no JVD Palpation: normal PMI Rate: tachycardic Rhythm: abnormal rhythm with ectopic beats Heart Sounds: S1 normal and S2 normal Pulses: normal peripheral pulses Back/Spine/Pelvis Cervical Spine: normal cervical lordosis Thoracic/Lumbar Spine: thoracic and lumbar spine normal to inspection Neuro General: patient alert, patient awake, patient oriented x3, tone normal, moves all extremities, normal light touch, pain and propioception and no focal motor deficits Extrem General: normal to inspection, full ROM, capillary refill normal, no joint enlargement, no pedal edema and no calf tenderness Psych Appearance: grossly normal Mental Status: mental status grossly normal Speech and Movement: speech and movement normal Mood: congruent mood Affect: normal affect Attitude: cooperative Thought Process: normal Thought Content: normal Insight: insight good Results Imaging Chest x-ray: report reviewed (IMPRESSION: Mild bronchial cuffing suggesting bronchitis or reactive airways disease (asthma). Mild vascular congestion without consuelo edema or infiltrate.) and image reviewed EKG: image reviewed (sinus arrhythmia w/ tachycardia w/ frequent PAC's vs MAT) Labs Result diagrams: 03/12/22 01:15 03/12/22 01:15 Labs: Laboratory Results - last 24 hr 03/12/22 03/12/22 03/12/22 01:15 01:15 01:15 WBC 14.73 H RBC 4.17 Hgb 13.3 Hct 41.2 MCV 99 H MCH 31.9 MCHC 32.3 RDW 12.6 Plt Count MPV Immature Gran % 0.3 Neutrophils % 62.2 Lymphocytes % 29.1 Monocytes % 6.9 Eosinophils % 1.2 Basophils % 0.3 Nucleated RBC % 0.0 Absolute Neutrophils 9.16 H Absolute Lymphocytes 4.29 H Absolute Monocytes 1.02 H Absolute Eosinophils 0.18 Absolute Basophils 0.04 VBG pH VBG pCO2 VBG pO2 VBG HCO3 VBG Total CO2 VBG O2 Saturation VBG Base Excess Sodium 142 Potassium 3.6 Chloride 104 Carbon Dioxide 32.3 H Anion Gap 5.7 BUN 12 Creatinine 0.7 Est GFR (CKD-EPI 2020) 94.73 Glucose 140 H Calcium 8.6 Total Bilirubin 0.4 AST 20 ALT 25 Alkaline Phosphatase 77 Troponin I < 50 Total Protein 8.3 H Albumin 3.8 COVID-19 Source Nasopharynx SARS-CoV-2 (PCR) Negative Influenza Type A (PCR) Negative Influenza Type B (PCR) Negative RSV (PCR) Negative 03/12/22 01:15 WBC RBC Hgb Hct MCV MCH MCHC RDW Plt Count MPV Immature Gran % Neutrophils % Lymphocytes % Monocytes % Eosinophils % Basophils % Nucleated RBC % Absolute Neutrophils Absolute Lymphocytes Absolute Monocytes Absolute Eosinophils Absolute Basophils VBG pH 7.22 L VBG pCO2 71 H* VBG pO2 95 VBG HCO3 29 H VBG Total CO2 27 VBG O2 Saturation 95 VBG Base Excess 1 Sodium Potassium Chloride Carbon Dioxide Anion Gap BUN Creatinine Est GFR (CKD-EPI 2020) Glucose Calcium Total Bilirubin AST ALT Alkaline Phosphatase Troponin I Total Protein Albumin COVID-19 Source SARS-CoV-2 (PCR) Influenza Type A (PCR) Influenza Type B (PCR) RSV (PCR) Last Vital Signs Temp 36.1 C L 03/12/22 00:58 Pulse 103 H 03/12/22 02:32 Resp 15 03/12/22 02:32 BP 165/72 H 03/12/22 00:58 Pulse Ox 92 03/12/22 02:32
[2022-03-12 02:58] LABS: Lab Add On Test DONE
[2022-03-12 03:07] LABS: C-Reactive Protein 0.21 mg/dL (0.0-0.3)
[2022-03-12 03:38] LABS: Procalcitonin < 0.1 ng/mL
[2022-03-12] MEDS: Azithromycin 250 MG TAB 500 MG PO (04:37)
[2022-03-12 06:12] LABS: BE (Venous) 0 mmol/L (-2-3); HCO3 (Venous) 26 mmol/L (23-28); O2 Sat (Venous) 96 %; TCO2 (Venous) 24 mmol/L (24-29); pCO2 (Venous) 48 mmHg (41-51); pH (Venous) 7.34 (7.31-7.41); pO2 (Venous) 92 mmHg
[2022-03-12 06:38] LABS: Troponin I < 50 ng/L (<or=60)
[2022-03-12] MEDS: Normal Saline Flush 10 ML SYR IVP (07:40)
[2022-03-12] MEDS: Amoxicillin 875/Clav. 125 TAB PO ×2 (07:40→19:43)
[2022-03-12] MEDS: guaiFENesin 600 MG TABCR PO ×2 (07:40→19:44)
[2022-03-12] MEDS: Albuterol/Ipratropium 3 ML UPD VIAL UPD ×4 (08:04→19:43)
[2022-03-12] MEDS: Budesonide/Formoterol 160/4.5 6 GM 60 PUFF INH IH ×2 (08:07→19:40)
[2022-03-12] MEDS: methylPREDNISolone SUCC 125 MG VIAL 60 MG IVP (09:31)
[2022-03-12] MEDS: Tiotropium Bromide-Respimat 10 PUFF INH 2 PUFF IH (09:36)
--- NOTE | 2022-03-12 15:42 | W.PM.PROGNOT ---
Date of Service Date of service: 03/12/22 Time of Service: 15:42 Assessment and Plan Assessment and plan (1) COPD exacerbation: Status: Acute Assessment and plan: Improved. off of BiPAP. Continue empiric augmentin + azithromycin (consider d/c since procalcitonin was negative). Downstep steroids to 40 mg PO daily. Continue scheduled and prn bronchodilators. Encourage pulmonary toilet. Will need exercise oximetry prior to d/c. (2) Acute respiratory failure with hypoxia and hypercapnia: Status: Acute Assessment and plan: As above (3) Atrial tachycardia: Status: Resolved Assessment and plan: Multifocal atrial tachycardia on presentation. HR better. Will continue to monitor on tele overnight. (4) GERD (gastroesophageal reflux disease): Status: Chronic Assessment and plan: Start PPI (5) DVT prophylaxis: Status: Acute Assessment and plan: Sc lovenox (6) Discharge planning issues: Status: Acute Assessment and plan: Full code Subjective Subjective Interval history since last seen: Shakira feels much better today. She has been off of BiPAP since this am and on 2L of O2 by HI. She does not have O2 at home. She does note still getting winded on RA today when trying to get to the bathroom. Denies dizziness, chest pain, nausea. Endorses a headache from BiPAP. Exam Narrative Exam Narrative: General: Very pleasant middle-aged female who is on 2L of O2 by HI, sitting up in a chair, speaking in full sentences, no increased work of breathing HEENT: EOMI, MMM Heart: RRR, no m/r/g Lungs: diminshed breath sounds B Abdomen: soft, nontender, nondistended Extremities: no edema BLEs Objective Last Vital Signs Temp 36.6 C 03/12/22 15:32 Pulse 93 H 03/12/22 15:32 Resp 18 03/12/22 15:32 BP 120/68 03/12/22 15:32 Pulse Ox 91 L 03/12/22 15:32 Laboratory Results - last 24 hr 03/12/22 03/12/22 03/12/22 01:15 01:15 01:15 WBC 14.73 H RBC 4.17 Hgb 13.3 Hct 41.2 MCV 99 H MCH 31.9 MCHC 32.3 RDW 12.6 Plt Count MPV Immature Gran % 0.3 Neutrophils % 62.2 Lymphocytes % 29.1 Monocytes % 6.9 Eosinophils % 1.2 Basophils % 0.3 Nucleated RBC % 0.0 Absolute Neutrophils 9.16 H Absolute Lymphocytes 4.29 H Absolute Monocytes 1.02 H Absolute Eosinophils 0.18 Absolute Basophils 0.04 VBG pH VBG pCO2 VBG pO2 VBG HCO3 VBG Total CO2 VBG O2 Saturation VBG Base Excess Sodium 142 Potassium 3.6 Chloride 104 Carbon Dioxide 32.3 H Anion Gap 5.7 BUN 12 Creatinine 0.7 Est GFR (CKD-EPI 2020) 94.73 Glucose 140 H Calcium 8.6 Total Bilirubin 0.4 AST 20 ALT 25 Alkaline Phosphatase 77 Troponin I < 50 C-Reactive Protein Total Protein 8.3 H Albumin 3.8 Procalcitonin COVID-19 Source Nasopharynx SARS-CoV-2 (PCR) Negative Influenza Type A (PCR) Negative Influenza Type B (PCR) Negative RSV (PCR) Negative Add-On Test Request 03/12/22 03/12/22 03/12/22 01:15 01:15 01:15 WBC RBC Hgb Hct MCV MCH MCHC RDW Plt Count MPV Immature Gran % Neutrophils % Lymphocytes % Monocytes % Eosinophils % Basophils % Nucleated RBC % Absolute Neutrophils Absolute Lymphocytes Absolute Monocytes Absolute Eosinophils Absolute Basophils VBG pH 7.22 L VBG pCO2 71 H* VBG pO2 95 VBG HCO3 29 H VBG Total CO2 27 VBG O2 Saturation 95 VBG Base Excess 1 Sodium Potassium Chloride Carbon Dioxide Anion Gap BUN Creatinine Est GFR (CKD-EPI 2020) Glucose Calcium Total Bilirubin AST ALT Alkaline Phosphatase Troponin I C-Reactive Protein Total Protein Albumin Procalcitonin < 0.1 COVID-19 Source SARS-CoV-2 (PCR) Influenza Type A (PCR) Influenza Type B (PCR) RSV (PCR) Add-On Test Request DONE 03/12/22 03/12/22 03/12/22 01:15 05:58 05:58 WBC RBC Hgb Hct MCV MCH MCHC RDW Plt Count MPV Immature Gran % Neutrophils % Lymphocytes % Monocytes % Eosinophils % Basophils % Nucleated RBC % Absolute Neutrophils Absolute Lymphocytes Absolute Monocytes Absolute Eosinophils Absolute Basophils VBG pH 7.34 VBG pCO2 48 VBG pO2 92 VBG HCO3 26 VBG Total CO2 24 VBG O2 Saturation 96 VBG Base Excess 0 Sodium Potassium Chloride Carbon Dioxide Anion Gap BUN Creatinine Est GFR (CKD-EPI 2020) Glucose Calcium Total Bilirubin AST ALT Alkaline Phosphatase Troponin I < 50 C-Reactive Protein 0.21 Total Protein Albumin Procalcitonin COVID-19 Source SARS-CoV-2 (PCR) Influenza Type A (PCR) Influenza Type B (PCR) RSV (PCR) Add-On Test Request
[2022-03-12] MEDS: Acetaminophen 325 MG TAB PO (16:47)
[2022-03-12] MEDS: LORazepam 20 MG/10 ML VIAL IVP (22:04)
[2022-03-13] VITALS (11 sets, daily range): BP systolic 122–139; BP diastolic 70–81; PULSE 73–106; RESP 4–20; TEMP 36.5–36.8; O2SAT 90–96
[2022-03-13 06:33] LABS: HCT 37.2 % (36.0-46.0); MCH 31.7 pg (27.0-33.0); MCHC 32.3 % (32.0-36.0); MCV 98 fL (80-95); MPV 10.8 fL (8.0-11.0); Platelet Count 235 10^3/uL (130-400); RBC 3.78 10^6/uL (3.93-5.22); RDW-SD 47.2 fL
[2022-03-13 06:38] LABS: Anion Gap 8.7 mmol/L (3-11); BUN 23 mg/dL (7-18); CO2 27.3 mmol/L (21.0-32.0); Calcium 9.1 mg/dL (8.5-10.1); Chloride 104 mmol/L (98-107); Estimated GFR 61.75 (mL/min/1.73m2); Glucose 137 mg/dL (74-106); Magnesium 2.4 mg/dL (1.8-2.4); Potassium 4.2 mmol/L (3.5-5.1); Sodium 140 mmol/L (136-145)
[2022-03-13 06:54] LABS: WBC 34.93 10^3/uL (4.4-10.8)
[2022-03-13 07:20] LABS: Absolute Lymphocyte Count 1.75 10^3/uL (1.2-3.4); Absolute Neutrophil Count 30.39 10^3/uL (1.2-6.7)
[2022-03-13 07:21] LABS: Absolute Monocyte Count 2.79 10^3/uL (0.1-0.8); Diff Comment Manual Differential; RBC Morphology Normal
[2022-03-13] MEDS: predniSONE 20 MG TAB 40 MG PO (08:02)
[2022-03-13] MEDS: Pantoprazole 40 MG TABCR PO (08:02)
[2022-03-13] MEDS: Amoxicillin 875/Clav. 125 TAB PO (08:03)
[2022-03-13] MEDS: guaiFENesin 600 MG TABCR PO (08:03)
[2022-03-13] MEDS: Albuterol/Ipratropium 3 ML UPD VIAL UPD ×2 (09:16→11:59)
[2022-03-13] MEDS: Tiotropium Bromide-Respimat 10 PUFF INH 2 PUFF IH (09:17)
[2022-03-13] MEDS: Budesonide/Formoterol 160/4.5 6 GM 60 PUFF INH IH (09:17)
[2022-03-13] MEDS: Enoxaparin 40 MG/0.4 ML SYR SC (10:08)
--- NOTE | 2022-03-13 10:12 | PDOC.CMIN ---
- If Service Date Differs Date of service: 03/13/22 Time of Service: 10:12 Care Management Initial Assess REASON FOR HOSPITALIZATION:: COPD Exacerbation PAST MEDICAL HISTORY/PAST SURGICAL HISTORY:: All Active Problems (Updated 03/12/22 @ 03:56 by Glenn Azar MD). Atrial tachycardia (Acute). COPD exacerbation (Acute). Hypoxemia (Acute). Tubular adenoma of colon (Acute). Anemia (Chronic). SOB (shortness of breath) (Acute). COPD (chronic obstructive pulmonary disease) (Chronic). Tobacco use disorder (Acute). Asthma, intermittent (Acute). Chronic pain (Chronic). Headache (Acute). Fibrocystic breast disease (Acute). GERD (gastroesophageal reflux disease) (Chronic). Heart murmur (Acute). Screening for colon cancer (Acute). Medical History . Chest pain. Per pt. states she has not had chest pain in years, and it was nothing when she had it years ago. Surgical History . History of laparoscopic appendectomy. Hx of section. Hx of colonoscopy (~04/2021). Hx of hysterectomy PREVIOUS FUNCTIONAL STATUS/SOCIAL/FAMILY SUPPORTS:: Shakira lives in a single family home in [place] with her daughter Radha and her . She has 2 adult sons; one lives in [facility] and the other lives in [place]. Shakira also has 6 grandchildren and 6 great grandchildren and she sees them all as often as she can. Shakira has worked for over 30 years at [employer] jobs in the [employer] [facility]. She is independent at baseline and continues to drive. CURRENT FUNCTIONAL STATUS:: Shakira was sitting up in a chair preparing to go home when CM met with her. She was in good spirits and stated that she is feeling much better. She does not use oxygen at home and does not require it at this time. Her daughter will transport her via private vehicle. ADVANCE DIRECTIVES:: none on file Has patient been provided with info about the portal/API?: Yes Did the patient sign up for the portal?: No CODE STATUS:: Full Code INSURANCE COVERAGE / FINANCIAL ISSUES:: Medicare CURRENT HOME/COMMUNITY SERVICES/EQUIPMENT:: none PRIMARY CARE PHYSICIAN:: Kirstie Vee POTENTIAL DISCHARGE NEEDS:: follow up with PCP and plan of care PATIENT/FAMILY EDUCATION NEEDS:: Review of discharge instructions, follow up plan, activity, limitations, Ask Me Three TRANSPORTATION:: via private vehicle with family PLAN:: Shakira will likley be discharged home with no new services. She will follow up with her community providers and plan of care and transport with family. CM will offer support to Shakira and assess for ongoing discharge concerns.
--- NOTE | 2022-03-13 13:37 | W.PM.DS.N ---
Date of service: 03/13/22 Time of Service: 13:37 DS: Diagnosis Discharge Diagnosis (1) COPD exacerbation: Status: Acute (2) Acute respiratory failure with hypoxia and hypercapnia: Status: Acute (3) Atrial tachycardia: Status: Resolved (4) GERD (gastroesophageal reflux disease): Status: Chronic Discharge Plan Disposition Patient Disposition: HOME Condition: Improving Discharge Details Reason For Visit: COPD Exacerbation Admit Date/Time: 03/12/22 02:28 Admit Provider: Glenn Azar Attending Provider: Glenn Azar Primary Care Provider: Kirstie Vee Hospital Course Hospital Course: This is a 66 yr old female, former smoker (quit 6 mo ago), with COPD (not on home oxygen) who presented to the ED with 2 day history of? acute dyspnea, productive cough of greenish sputum, and wheezing and was in moderate respiratory distress with oxygen requirements. She initially told ED she wasn't responding to inhalers but on discharge told me that she was out of her inhalers and hasn't picked them at the pharmacy. Her SPO2 came up to 98% on 4 LPM however she required BIPAP and multiple DuoNebs to improve her respirations. Patient was fully vaccinated against COVID. Her work up was consistent with copd exacerbation. she was started on steroids and antibiotics. she was weaned off bipap and oxygen and was oxygenating well on room air. A walk test demonstrated no oxygen needs with ambulation. She will continue prednisone and antibiotics to complete a 5 day course. She requested discharge to home with no services today. She is hemodynamically stable, eating and drinking well and feels much improved. discharge discussed with Dr sol Mod[place] Meds and New Rx's Prescriptions: New azithromycin 250 mg Tablet 250 mg PO HS Qty: 3 0RF prednisone 20 mg Tablet 40 mg PO DAILY Qty: 6 0RF amoxicillin-pot clavulanate 875-125 mg Tablet 1 tab PO BID Qty: 7 0RF budesonide-formoterol [Symbicort] 160-4.5 mcg/actuation Hfa Aerosol Inhaler 2 puff inhalation BID Qty: 1 0RF Spiriva Respimat 2.5 mcg/actuation Mist 2 puff inhalation DAILY Qty: 1 0RF Inhaler, Assist Devices [Pocket Chamber] 1 ea miscellaneous DIRECTED Qty: 0 0RF Continued albuterol sulfate [ProAir HFA] 200 PUFF/INH HFA aerosol inhaler 2 puff Inhalation Q4H PRN PRNQty: 1 0RF No Action acetaminophen [Acetaminophen Extra Strength] 500 MG tablet 1,000 mg PO Q4H PRN Qvar RediHaler 80 mcg/actuation HFA aerosol breath activated 2 inh inhalation BID Discharge Instructions Instructions: COPD (Chronic Obstructive Pulmonary Disease) (DC) Stand Alone Forms: Nursing Discharge Form Referrals: Kirstie Vee [Primary Care Provider] - 03/26/22 9:30 am Activity:: Activity as Tolerated Equipment/Supplies:: No Equipment Needed Diet:: As Tolerated Discharge Orders Discharge Orders: Discharge Order (Routine); Ordered 03/13/22 Ordered By: Neetu Nayak Discharge Data Discharge Date/Time-TO BE ENTERED AT DEPARTURE: 03/13/22 15:13 DS: Summary Time Spent with Patient providing and/or coordinating discharge services: Greater than 30 minutes Status at Discharge Functional status at discharge: independent ambulation Overall status at discharge: patient is progressing back to baseline Mental Status: mental status grossly normal Speech and Movement: speech and movement normal Mood: congruent mood Affect: normal affect Exam Const General: cooperative, comfortable, no acute distress and ill appearing (older appearing than stated age) chronically Nutritional Appearance: overweight Orientation: alert, awake and oriented x3 HENMT Head: normal to inspection, normocephalic and atraumatic Mouth: oral mucosae normal (no exudate) Chest Chest: normal inspection of the chest Resp Effort & Inspection: normal respiratory effort Auscultation: diminished lung sounds bilaterally, no rhonchi and no wheezes Cardio Rate: regular rate Rhythm: regular rhythm GI Inspection: normal to inspection Skin General skin exam: no rashes or lesions noted Extrem General: normal to inspection, full ROM and no pedal edema Psych Appearance: grossly normal Mental Status: mental status grossly normal Speech and Movement: speech and movement normal Mood: congruent mood Affect: normal affect Attitude: cooperative Thought Process: normal Thought Content: normal Insight: insight good Judgment: judgment good DS: Data Vitals/I&O Vitals and I&O: Vital Signs Temperature 36.5 C 03/13/22 09:45 Temperature Source Tympanic 03/13/22 09:45 Pulse 85 03/13/22 12:00 Pulse Rhythm Regular 03/13/22 11:59 Pulse 102 H 03/12/22 03:40 Respiratory Rate 18 03/13/22 12:00 Respiratory Effort 03/13/22 11:59 Respiratory Depth Normal 03/13/22 11:59 Respiratory Pattern Normal 03/13/22 11:59 Blood Pressure 129/81 03/13/22 09:45 Blood Pressure Mean 80 03/12/22 03:31 Blood Pressure Position Supine 03/12/22 00:58 Pulse Oximetry 95 03/13/22 12:00 Oxygen Delivery Method Room Air 03/13/22 11:59 Oxygen Flow Rate 0 03/13/22 11:59 Fraction of Inspired Oxygen (FIO2) 25 03/13/22 09:19 Pain Level 0 03/13/22 09:45 Comment 03/12/22 18:35 Intake & Output 03/12/22 03/13/22 03/13/22 23:59 11:59 23:59 Intake Total 300 / 470 Output Total 300 / 700 500 / 500 Balance 0 / -230 -500 / -500 Weight 73.8 kg Intake: Oral 300 / 420 Output: Urine 300 / 700 500 / 500 Other: Urine Color Yellow Light Irina Urine Appearance Clear Clear Urine Odor None None Comment up independently to the toilet voided in the toilet per patient Voiding Methods Toilet Toilet Data Completed and Pending Labs on day of discharge: Labs from last 24 hours 03/13/22 03/13/22 03/12/22 05:40 05:40 16:52 WBC 34.93 H* RBC 3.78 L Hgb 12.0 Hct 37.2 MCV 98 H MCH 31.7 MCHC 32.3 RDW 13.0 Plt Count 235 MPV 10.8 Immature Gran % 0.0 Neutrophils % 87.0 Lymphocytes % 5.0 Monocytes % 8.0 Eosinophils % 0.0 Basophils % 0.0 Nucleated RBC % 0.0 Absolute Neutrophils 30.39 H Absolute Lymphocytes 1.75 Absolute Monocytes 2.79 H Absolute Eosinophils 0.00 Absolute Basophils 0.00 RBC Morphology Normal Sodium 140 Potassium 4.2 Chloride 104 Carbon Dioxide 27.3 Anion Gap 8.7 BUN 23 H Creatinine 1.0 Est GFR (CKD-EPI 2020) 61.75 Glucose 137 H Calcium 9.1 Magnesium 2.4 Urine Legionella Ag Pending Preliminary micro results at discharge 03/12/22 12:00 Sputum Culture - Preliminary Sputum Normal Marielle PFSH All Active Problems (Updated 03/12/22 @ 15:48 by Jaimee Sol MD) Discharge planning issues (Acute) DVT prophylaxis (Acute) Acute respiratory failure with hypoxia and hypercapnia (Acute) COPD exacerbation (Acute) Hypoxemia (Acute) Tubular adenoma of colon (Acute) Anemia (Chronic) SOB (shortness of breath) (Acute) COPD (chronic obstructive pulmonary disease) (Chronic) Tobacco use disorder (Acute) Asthma, intermittent (Acute) Chronic pain (Chronic) Headache (Acute) Fibrocystic breast disease (Acute) GERD (gastroesophageal reflux disease) (Chronic) Heart murmur (Acute) Screening for colon cancer (Acute) Medical History Chest pain Per pt. states she has not had chest pain in years, and it was nothing when she had it years ago. Surgical History History of laparoscopic appendectomy Hx of section Hx of colonoscopy (~04/2021) Hx of hysterectomy Social History (Updated 03/12/22 @ 03:41 by Glenn Azar MD) Smoking/Tobacco Use Status: Former Tobacco Use tobacco type: cigarettes Quit Date: 09/09/21 Tobacco: How many years used: 45 Smoking risk assessment performed?: Yes Alcohol Intake: never Drug use: Never Substance use type: does not use Do you feel safe at home: Yes Do you feel safe in your relationship?: Yes
--- NOTE | 2022-03-13 18:20 | PDOC.CMDIS ---
- If Service Date Differs Date of service: 03/13/22 Time of Service: 18:20 LACE Index Scoring Tool - Questions: Length of Stay (in days): 1 Acuity (Admit via E.D.?): Yes Comorbidities: Chronic Pulmonary Disease E.D. Visits: 1 - Answers: Total Score: 7 Risk of Readmission: Low Risk Care Management Discharge Reason for Hospitalization: COPD Exacerbation Discharge Plan: Shakira will be discharged home with no new services. She will follow up with her community providers and plan of care and transport with her daughter. Patient/Family Education Needs: Review of discharge instructions, follow up plan, activity, limitations, Ask Me Three
[2022-03-13 18:54] LABS: Legionella Ag Detection Urine Negative (Negative)
[2022-03-14 15:09] LABS: Streptococcus Pneumoniae Ag, U Negative (Negative)
== END 2022-03-13 15:13 | disposition home or self-care (01) ==
LOC: ER 03:38 → MS 03:48
PROVIDERS: Internal Medicine; Admitting Provider Internal Medicine; Emergency Provider Student in an Organized Health Care Education/Training Program; PCP Nurse Practitioner Family; Visit Provider Internal Medicine
DX: J44.1 Chronic obstructive pulmonary disease with (acute) exacerbation (principal); J96.01 Acute respiratory failure with hypoxia; J96.02 Acute respiratory failure with hypercapnia; I49.1 Atrial premature depolarization; R05.9 Cough, unspecified; J20.9 Acute bronchitis, unspecified; J44.0 Chronic obstructive pulmonary disease with (acute) lower respiratory infection; D64.9 Anemia, unspecified; G89.29 Other chronic pain; K21.9 Gastro-esophageal reflux disease without esophagitis; Z20.822 Contact with and (suspected) exposure to COVID-19; Z87.891 Personal history of nicotine dependence
CPT/HCPCS: 36415; 80048; 80053; 82805; 84145; 87449; 87637; 93005; 94618; 94640; 96365; 96366; 96375; 99284; 99285; J1650; 71045; 83735; 84484; 85025; 86140; 87070; 87205; 87899; 93010; 94660; 94664; 94667; 94760; 99217; 99220; G0378; J2930; J3490; J7512; J7620

== ENCOUNTER 2022-07-16 12:18 | Outpatient (REF) | payer MEDICARE, SELFPAY ==
[2022-07-16 16:04] LABS: Abs Immature Grans 0.02 10^3/uL (0.0-0.06); Absolute Basophil Count 0.06 10^3/uL (0.0-0.2); Absolute Eosinophil Count 0.19 10^3/uL (0.0-0.7); Absolute Monocyte Count 0.62 10^3/uL (0.1-0.8); Basophils % 0.7; Eosinophils % 2.1; HCT 40.7 % (36.0-46.0); HGB 13.3 g/dL (11.2-15.7); Immature Grans % 0.2; Lymphocytes % 22.5; MCH 32.4 pg (27.0-33.0); MCHC 32.7 % (32.0-36.0); MCV 99 fL (80-95); Neutrophils % 67.5; Platelet Count 299 10^3/uL (130-400); RDW 12.5 % (11.7-14.6); WBC 8.89 10^3/uL (4.4-10.8)
[2022-07-16 16:16] LABS: Calculated LDL 126 mg/dL (<100); Cholesterol 203 mg/dL (<200); HDL Cholesterol 60 mg/dL (40-60); Triglyceride 88 mg/dL (<150)
== END 2022-07-16 12:19 | disposition home or self-care (01) ==
LOC: NCHCN 12:18
PROVIDERS: PCP Nurse Practitioner Family; Visit Provider Nurse Practitioner Family
DX: R73.03 Prediabetes (principal); J44.9 Chronic obstructive pulmonary disease, unspecified; Z13.220 Encounter for screening for lipoid disorders
CPT/HCPCS: 80061; 85025

== ENCOUNTER 2022-12-07 00:11 | Outpatient (CLI) | payer MEDICARE, SELFPAY ==
--- NOTE | 2022-12-07 | DI.CTLCSR_ITS ---
Exam(s) CT CHEST LUNG CANCER SCREEN EXAM: CT CHEST LUNG CANCER SCREEN CLINICAL HISTORY: SMOKER F17.210 [facility] Z00.00 SCREENING FOR LUNG CANCER TECHNIQUE: Imaging Protocol: Axial computed tomography images with coronal and sagittal reformatted images were created and reviewed. Low dose screening protocol. COMPARISON: CT CT CHEST LUNG CANCER SCREEN from 12/01/2021 FINDINGS: Tracheobronchial tree: No bronchiectasis or mucus plugging.. Mediastinum and Karla: No dominant adenopathy or fluid collection. Pulmonary parenchyma: No consolidation or dominant measurable mass. Mild emphysematous changes. Righ t middle lobe and lingular scarring. Lung Nodules: None. Pleura: No effusion. No pneumothorax. Heart: The heart is not dilated. No coronary artery calcifications are seen. Aorta: Thoracic aorta non-dilated. Upper abdomen: Unremarkable. Bones: Degenerative changes. Soft Tissues: Unremarkable. IMPRESSION: No suspicious pulmonary nodules. Lung RADS Cat 1 - Negative: No nodules and definitely benign nodules Lung-RADS 1.0 CATEGORIES: Category 0 - Prior chest CT exam(s) being located for comparison. Category 1 - Annual screening in 12 months. No nodules or definitely benign nodules. Category 2 - Annual screening in 12 months. Benign appearance. Nodules with low likelihood of becomin g active cancer. Category 3 - 6-month follow-up. Probably benign. Short-term follow-up suggested. Nodules with low lik elihood of becoming active cancer. Category 4A - 3-month follow-up and CT/PET if >8 mm in size. Suspicious finding. Findings which requi re additional testing. Category 4B - Findings which require additional testing and tissue sampling. Category 4X - Category 3 or 4 nodules with additional features or imaging findings that increases the suspicion of malignancy. Modifier S- Potentially clinically significant findings (non lung cancer) RADIATION DOSE DELIVERED: 70.63mGy.cm Total DLP DATA REPOSITORY: All CT scans at this facility are submitted to the National Radiology Data Registry (NRDR) Dose Index Registry (DIR) with the [employer] (ACR). RADIATION OPTIMIZATION: All CT scans at this facility use at least one of these dose optimization te chniques: automated exposure control; mA and/or kV adjustment per patient size (includes targeted exa ms where dose is matched to clinical indication); or iterative reconstruction.
--- NOTE | 2022-12-07 | DI.MAMMO_ITS ---
Exam(s) MAMMO SCREENING EXAM: MAMMO SCREENING CLINICAL HISTORY: SCREENING MAMMO FOR BREAST CANCER Z12.31 TECHNIQUE: Mammograms were interpreted according to the usual protocol including computer analysis w [employer] CAD system, tomosynthesis and C-view imaging. COMPARISON: 2013 through 2021 FINDINGS: The breasts are composed of mainly fatty density , Breast Density category A. No suspicious masses or suspicious microcalcifications are seen. No skin thickening or abnormal axillary lymph nodes are seen. There has been no significant change from prior exams. IMPRESSION: BI-RADS Category 1, Negative mammogram Yearly screening mammography is recommended. Breast Density - Category A, fatty density. A negative radiographic report should not delay biopsy if a dominant or clinically suspicious mass is present. Up to ten percent of cancers are not identified on mammography. A negative report may reinforce clinical impression. Adenosis and dense breasts may obscure an underlying neoplasm. False positive reports average 6 to 10%. Patient will receive a letter notifying them of these results.
--- NOTE | 2022-12-07 | DI.RAD_ITS ---
Exam(s) XR KNEE LT 3V AP,LAT,ANISH EXAM: XR KNEE LT 3V AP,LAT,ANISH CLINICAL HISTORY: LEFT KNEE PAIN M25.562. TECHNIQUE: 2D digital imaging was performed. Three views. COMPARISON: No exams were available for comparison FINDINGS: BONES: No acute fracture is present. No bony destructive lesion is seen. Small enthesophyte superi or pole patella JOINTS: Femoral tibial and patellofemoral joint spaces are maintained. The knee is normally aligned. No joint effusion is seen. Mild degenerative changes at the proximal tibial fibular joint. SOFT TISSUE: Normal. IMPRESSION: Minimal degenerative changes. DATA REPOSITORY: RADIATION DOSE DELIVERED:
== END 2022-12-07 00:31 ==
LOC: DI 00:11
PROVIDERS: PCP Nurse Practitioner Family; Visit Provider Nurse Practitioner Family
DX: F17.210 Nicotine dependence, cigarettes, uncomplicated (principal); Z12.31 Encounter for screening mammogram for malignant neoplasm of breast; M25.562 Pain in left knee; Z12.2 Encounter for screening for malignant neoplasm of respiratory organs
CPT/HCPCS: 71271; 73562; 77063; 77067

== ENCOUNTER 2023-05-22 11:11 | Emergency (ER) | payer MEDICARE, SELFPAY ==
[2023-05-22 11:22] VITALS: BP 134/75; PULSE 83; RESP 16; TEMP 37.2; O2SAT 95
--- NOTE | 2023-05-22 12:03 | ED.GENADUL_ITS ---
Discharge Plan Disposition Patient Disposition: Home Condition: Good Discharge Details Clinical Impression: Acute shoulder pain, Shoulder weakness Primary Care Provider: Kirstie Vee ED Provider: Faith Donaldson Home Meds and New Rx's Prescriptions: Continued acetaminophen [Acetaminophen Extra Strength] 500 MG tablet 1,000 mg PO Q4H PRN Qvar RediHaler 80 mcg/actuation HFA aerosol breath activated 2 inh inhalation BID albuterol sulfate [ProAir HFA] 200 PUFF/INH HFA aerosol inhaler 2 puff Inhalation Q4H PRN PRNQty: 1 0RF azithromycin 250 mg Tablet 250 mg PO HS Qty: 3 0RF prednisone 20 mg Tablet 40 mg PO DAILY Qty: 6 0RF amoxicillin-pot clavulanate 875-125 mg Tablet 1 tab PO BID Qty: 7 0RF budesonide-formoterol [Symbicort] 160-4.5 mcg/actuation Hfa Aerosol Inhaler 2 puff inhalation BID Qty: 1 0RF Spiriva Respimat 2.5 mcg/actuation Mist 2 puff inhalation DAILY Qty: 1 0RF Inhaler, Assist Devices [Pocket Chamber] 1 ea miscellaneous DIRECTED Qty: 0 0RF Discharge Instructions Instructions: Shoulder Pain (ED), Exercises for Shoulder Flexion and Extension (ED), Exercises for Internal and External Shoulder Rotation (ED) Additional Instructions: Your x-rays are reassuring here today. No evidence of fracture or dislocation. However, as discussed, I am quite concerned about your rotator cuff and recurrent injury. Please call orthopedics to schedule follow-up appointment, number listed below. I am worried about your range of motion and you developing frozen shoulder so please perform the exercises as we discussed. Referral for physical therapy is also attached. If you develop any new or worsening symptoms please seek care urgently once again. Please try to avoid any heavy lifting or overhead activities as these may increase her pain. Stand Alone Forms: Physical Therapy Referral, Work Release Referrals: Carlos A Weldon MD [ [facility] STAFF PHYSICIAN] - Discharge Data Discharge Date/Time-TO BE ENTERED AT DEPARTURE: 05/22/23 14:02 Medical Decision Making Patient is a pleasant [place] 67-year-old female, accompanied by her granddaughter, with chief complaint of left shoulder pain. She reports that about 4 days ago she began slipping on the stairs and caught herself on the extended left arm on the banister. Had a sudden onset of left-sided shoulder pain which has now been limiting her ability to perform her ADLs and move the shoulder. She does have a history of rotator cuff repair on the shoulder which she states was performed at [facility] [place]. She denies any sensory deficits. On exam, patient appears nontoxic. She is holding left arm in a fairly splinted position. Very limited range of motion, particularly forward elevation. Actively, to most none. Passively to about 45 degrees beginning the patient to actually relax is quite difficult. She has 2+ distal pulses. Full range of motion of the elbow, wrist, hand. No axillary nerve dysfunction. Concern primarily for rotator cuff injury. However, given the mechanism also considered fracture, will obtain x-ray to evaluate for any potential bony abnormality. FINDINGS: 3 views No evidence of acute fracture or dislocation. No obvious degenerative changes in the shoulder. However, there is a chunk of calcium in the subacromial space above the greater tuberosity which measures approximately 1.2 x 0.9 cm. Consistent with calcific rotator cuff tendinitis. IMPRESSION: Calcific rotator cuff tendinitis. No fracture evident. No dislocation Discussed these findings with the patient. Given her limited range of motion, I am quite concerned with the patient potentially developing adhesive capsulitis. Exercises were given to the patient, she did perform these after previous surgery. For this reason, decided to hold off on any sling. Encourage rest, ice, elevation. Tylenol and ibuprofen as needed for discomfort. 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 Will refer to orthopedics as well as physical therapy. While she had previous surgery at [facility] [place], she would prefer f/u with our orthopedic group. All of her questions and concerns were addressed, she is in agreement with this plan. HPI General Date/Time Provider Initiated Documentation: 05/22/23 12:03 . Limitations to Documentation: no limitations . Information obtained by: patient, family and RN notes reviewed . History of Present Illness 67 year old F presents to the emergency department with the chief complaint of left shoulder pain, described as severe, with intensity rated at 7. Quality is described as stabbing and aching, and is localized to the left and upper extremity. Patient extremity (to midupper arm). Patient started experiencing this day(s) (4) and it has been constant. Immobilization improves symptom(s), Movement worsens symptoms . Patient notes no other symptoms.. Patient did receive the following treatments prior to arrival, none Related Data Home Medications Medication Instructions Recorded Confirmed acetaminophen 500 mg tablet 1,000 mg PO Q4H PRN 07/05/14 03/12/22 (Acetaminophen Extra Strength) albuterol sulfate 90 mcg/actuation 2 puff inhalation Q4H PRN PRN #1 01/14/18 03/12/22 aerosol inhaler (ProAir HFA) inh beclomethasone dipropionate 80 2 inh inhalation BID 12/02/20 03/12/22 mcg/actuation HFA breath activated aerosol (Qvar RediHaler) Inhaler, Assist Devices [Pocket 1 ea miscellaneous DIRECTED ##0 03/13/22 Chamber] amoxicillin 875 mg-potassium 1 tab PO BID #7 tabs 03/13/22 clavulanate 125 mg tablet azithromycin 250 mg tablet 250 mg PO HS #3 tabs 03/13/22 budesonide-formoterol HFA 160 2 puff inhalation BID #1 g 03/13/22 mcg-4.5 mcg/actuation aerosol inhaler (Symbicort) prednisone 20 mg tablet 40 mg (2 x 20 mg) PO DAILY #6 tabs 03/13/22 tiotropium bromide 2.5 2 puff inhalation DAILY #1 g 03/13/22 mcg/actuation mist for inhalation (Spiriva Respimat) Previous Rx's Medication Instructions Recorded albuterol sulfate 90 mcg/actuation 2 puff inhalation Q4H PRN PRN #1 01/14/18 aerosol inhaler (ProAir HFA) inh Inhaler, Assist Devices [Pocket 1 ea miscellaneous DIRECTED ##0 03/13/22 Chamber] amoxicillin 875 mg-potassium 1 tab PO BID #7 tabs 03/13/22 clavulanate 125 mg tablet azithromycin 250 mg tablet 250 mg PO HS #3 tabs 03/13/22 budesonide-formoterol HFA 160 2 puff inhalation BID #1 g 03/13/22 mcg-4.5 mcg/actuation aerosol inhaler (Symbicort) prednisone 20 mg tablet 40 mg (2 x 20 mg) PO DAILY #6 tabs 03/13/22 tiotropium bromide 2.5 2 puff inhalation DAILY #1 g 03/13/22 mcg/actuation mist for inhalation (Spiriva Respimat) Allergies Allergy/AdvReac Type Severity Reaction Status Date / Time oxycodone Allergy Mild rash Unverified 03/12/22 03:17 General Stated Complaint: Orthopedic AMA: 4 Review of Systems Constitutional Constitutional: Reports as per HPI, Denies chills, Denies fever(s), Denies headache(s) and Denies weakness ENT Ears, Nose, Mouth, and Throat: Denies headache(s) Cardiovascular Cardiovascular: Reports as per HPI Respiratory Respiratory: Reports as per HPI and Denies cough Musculoskeletal Musculoskeletal: Reports as per HPI and Denies tingling Integumentary/Breasts Skin/Breast: Reports as per HPI, Denies rash and Denies wounds Neurologic Neurologic: Reports as per HPI, Denies headache(s), Denies tingling, Denies paresthesias and Denies weakness PFSH All Active Problems (Updated 05/22/23 @ 13:32 by MARK Parker) Shoulder weakness (Acute) Acute shoulder pain (Acute) Acute respiratory failure with hypoxia and hypercapnia (Acute) COPD exacerbation (Acute) Hypoxemia (Acute) Tubular adenoma of colon (Acute) Anemia (Chronic) SOB (shortness of breath) (Acute) COPD (chronic obstructive pulmonary disease) (Chronic) Tobacco use disorder (Acute) Asthma, intermittent (Acute) Chronic pain (Chronic) Headache (Acute) Fibrocystic breast disease (Acute) GERD (gastroesophageal reflux disease) (Chronic) Heart murmur (Acute) Screening for colon cancer (Acute) Medical History Chest pain Per pt. states she has not had chest pain in years, and it was nothing when she had it years ago. Surgical History History of laparoscopic appendectomy Hx of section Hx of colonoscopy (~04/2021) Hx of hysterectomy Social History (Updated 03/12/22 @ 03:41 by Glenn Azar MD) Smoking/Tobacco Use Status: Former Tobacco Use tobacco type: cigarettes Quit Date: 09/09/21 Tobacco: How many years used: 45 Smoking risk assessment performed?: Yes Alcohol Intake: never Drug use: Never Substance use type: does not use Do you feel safe at home: Yes Do you feel safe in your relationship?: Yes Exam Const General: cooperative, healthy appearing, comfortable, no acute distress, well developed and well groomed Nutritional Appearance: average body habitus and well nourished Orientation: alert and awake Resp Effort & Inspection: normal respiratory effort, able to speak in complete sentences and no respiratory distress Cardio Rate: regular rate Rhythm: regular rhythm Skin General skin exam: no rashes or lesions noted Lesions: no lesions Rashes: no rashes Trauma: no lacerations or abrasions Neuro General: patient alert and patient awake Cognition: normal cognition Speech: speech normal Gait: normal gait Motor: muscle tone normal throughout Sensory Exam: no sensory deficits noted Extrem Shoulder/upper arm images: 2 1. Area of maximal tenderness is lateral over the subacromial joint space. Very limited forward elevation, almost none. Stable to get to about 45 degrees passively but then has a significant subacromial space pain that radiates down towards the elbow. She is 2+ distal pulses. Full range of motion of the elbow, wrist, hands. Nerve function, including axillary nerve function, is intact. External rotation and internal rotation are also limited but not to the degree of forward elevation. No erythema, warmth or swelling. No pain over the Psych Appearance: grossly normal and well kempt Mental Status: mental status grossly normal Speech and Movement: speech and movement normal Course Vital Signs Vital signs: Vital Signs Temperature 37.2 C 05/22/23 11:22 Pulse 83 05/22/23 11:22 Respiratory Rate 16 05/22/23 11:22 Blood Pressure 134/75 05/22/23 11:22 Pulse Oximetry 95 05/22/23 11:22 Temperature 37.2 C 05/22/23 11:22 Temperature Source Skin 05/22/23 11:22 Pulse 83 05/22/23 11:22 Respiratory Rate 16 05/22/23 11:22 Blood Pressure 134/75 05/22/23 11:22 Blood Pressure Position Sitting 05/22/23 11:22 Pulse Oximetry 95 05/22/23 11:22 Oxygen Delivery Method Room Air 05/22/23 11:22 Oxygen Flow Rate 0 05/22/23 11:22 Pain Level 7 05/22/23 11:22 Comment ice, heat, tylenol, ibuprofen 05/22/23 11:22
--- NOTE | 2023-05-22 12:42 | DI.RAD_ITS ---
Exam(s) XR SHOULDER LT COMPLETE 2+V EXAM: XR SHOULDER LT COMPLETE 2+V CLINICAL HISTORY: fall, caught self on banister. TECHNIQUE: 2D digital imaging was performed. COMPARISON: No exams were available for comparison FINDINGS: 3 views No evidence of acute fracture or dislocation. No obvious degenerative changes in the shoulder. Ocasio efe, there is a chunk of calcium in the subacromial space above the greater tuberosity which measures approximately 1.2 x 0.9 cm. Consistent with calcific rotator cuff tendinitis. IMPRESSION: Calcific rotator cuff tendinitis. No fracture evident. No dislocation DATA REPOSITORY: RADIATION DOSE DELIVERED:
[2023-05-22 14:09] VITALS: BP 135/79; PULSE 77; RESP 16; O2SAT 93
== END 2023-05-22 14:02 | disposition home or self-care (01) ==
PROVIDERS: Emergency Provider Physician Assistant; PCP Nurse Practitioner Family
DX: M25.512 Pain in left shoulder (principal); M75.32 Calcific tendinitis of left shoulder; J44.9 Chronic obstructive pulmonary disease, unspecified; Z87.891 Personal history of nicotine dependence
CPT/HCPCS: 99283; 73030; 99282

== ENCOUNTER → 2023-07-16 01:32 | Outpatient (CLI) | payer MEDICARE, MEDICAID, SELFPAY ==
--- NOTE | 2023-07-16 06:45 | DI.MRI_ITS ---
Exam(s) MR UPPER JOINT LT WO EXAM: MR UPPER JOINT LT WO CLINICAL HISTORY: L SHOULDER PAIN,lt rotator cuff tear,m75.102 TECHNIQUE: Multiplanar multisequence MRI of the shoulder was performed. COMPARISON: MR MRI - L UPPER JOINT WO CONT from 02/16/2010 CR XR SHOULDER LT COMPLETE 2+V from 05/22/2023 FINDINGS: MARROW:There is no evidence of fracture, Hill-Sachs deformity, nor ominous osseous lesions. ROTATOR CUFF MECHANISM: AC JOINT/ACROMIUM: There are mild degenerative changes in the AC joint. No prominent downgoing osteo phytes.. There is no evidence of os acromiale. Supraspinatus: There is tendinitis signal evident. On 1 coronal image there is a thin focus of signa l abnormality in the tendon at the foot pad insertion site just above the greater tuberosity. This is in the region of the calcification seen on recent plain films. Also some mild tendinitis signal at t his level. Small area of partial-thickness tearing on bursal surface in this region. No obvious full- thickness tear. No retraction. No muscle atrophy. In addition, there is mild overlying edema in the s ubacromial bursa. Infraspinatus: Intact. No evidence of tear nor muscle atrophy. Teres Minor: Intact. No evidence of tear nor muscle atrophy. Subscapularis/anterior cuff: Intact. No abnormal signal at the level of the multipennate insertional fibers. No significant tear nor atrophy. BICEPS TENDON: Not displaced from the intertubercular groove. Mild increased intrasubstance signal w ithin the intra articular aspect but no high-grade tear. There is some fluid in the biceps tendon sh eath consistent with element of tenosynovitis. There are no loose bodies within the tendon sheath of the biceps. LABRUM: There are no obvious labral tears nor evidence of paralabral cyst. There is no abnormal intra osseous signal to suggest Bankart lesion but there is significant signal abnormality throughout the i nferior glenohumeral ligament consistent with tearing of this structure. GLENOHUMERAL JOINT: No joint effusion nor obvious loose intra-articular bodies. No chondral defects. No osteophytes. No degenerative subarticular cysts. There is signal abnormality in the inferior glenohumeral ligament consistent with high-grade partial tearing. QUADRILATERAL SPACE: No evidence of mass in the region of the axillary nerve and dorsal circumflex hu meral vessels. Visualized triceps muscle at this level appears unremarkable. IMPRESSION: 1. There is mild tendinitis signal in the anterior component of the supraspinatus tendon in the regio n of the soft tissue calcium which is evident on recent plain films this consistent with calcific ten dinitis. There also appears to be a small partial thickness bursal surface tear in this region. No ob vious full-thickness tear. No retraction and no atrophy of the muscle belly. The infraspinatus, teres minor, and subscapularis are intact. 2. There is significant signal abnormality throughout the inferior glenohumeral ligament consistent w ith high-grade partial tearing of this structure. 3. No obvious labral tears. Biceps tendon is intact but exhibits some tenosynovitis within the intert ubercular groove. 4. There are very minimal degenerative changes in the glenohumeral joint. DATA REPOSITORY:
--- NOTE | 2023-07-16 21:21 | DI.VRAD_ITS ---
PROCEDURE INFORMATION: Exam: MR Left Upper Extremity Joint Without Contrast; Shoulder Exam date and time: 07/16/2023 7:45 AM Age: 67 years old Clinical indication: Left; Patient HX: L shoulder pain, lt rotator cuff tear TECHNIQUE: Imaging protocol: Magnetic resonance imaging of the left upper extremity without contrast. Exam focused on the shoulder. COMPARISON: CR XR SHOULDER LT COMPLETE 2+V 05/22/2023 12:31 PM FINDINGS: Bones/joints: Left AC joint demonstrates mild osteoarthritic hypertrophic change without significant undersurface spurring or medial arch stenosis. Neutral acromial slope with type 2 to borderline type 3 acromial configuration with slight anterior undersurface spur formation. Mild enthesopathy in the greater tuberosity. No fracture or dislocation. No significant shoulder joint effusion. Articular surfaces are well-maintained. Glenoid labrum: No definite labral tears are identified. Probable labral fissure or sublabral foramen in the anterior superior labrum, less likely short segment nondisplaced anterior superior labral tear. Supraspinatus tendon: The supraspinatus tendon demonstrates abnormal signal in the anterior pre insertional segment which corresponds to the region of rotator cuff calcification seen on comparison radiographs 05/22/2023. There is overlying T2 hyperintensity in the region in the findings are most suggestive of calcific tendinitis. Suspect small superficial 3 x 2 x 6 mm bursal surface partial-thickness tear in this region, less than 50% thickness. No full-thickness tear or tendon retraction. Infraspinatus tendon: Infraspinatus tendon is intact. Subscapularis tendon: Subscapularis tendon is intact. There is ill-defined intrasubstance T2 hyperintensity in the distal subscapularis tendon with mild tendon thickening suggesting chronic tendinosis. Teres minor tendon: Teres minor tendon is intact. Tendon of biceps brachii: Biceps long head tendon is intact and maintains an appropriate course in the bicipital groove. Biceps labral anchor is intact. There is excessive fluid in the biceps tendon sheath within the bicipital groove relative to the amount of joint fluid present, probably reactive fluid from nearby calcific tendinitis and supraspinatus although an element of biceps tendonitis is possible. Glenohumeral ligaments: Question mild capsular and synovial thickening involving the inferior axillary recess and inferior glenohumeral ligaments with mild pericapsular T2 hyperintensity suggesting periarticular edema. Consider adhesive capsulitis if there is clinical evidence of restricted range of motion. Soft tissues: Unremarkable. IMPRESSION: 1. Findings in the anterior distal supraspinatus tendon most consistent with calcific tendinitis when correlated with the shoulder radiographs from 05/22/2023. Suspect small bursal surface partial-thickness rotator cuff tendon tear in this region, but no high-grade tear or tendon retraction is identified. Mild peritendinous inflammatory change without consuelo bursitis. 2. Excessive fluid in the biceps tendon sheath is probably reactive in nature due to proximity to calcific tendinitis in the supraspinatus. An element of biceps tendinitis is not excluded. No biceps tendon tear or displacement. 3. Thickening of the capsule, synovium, and inferior glenohumeral ligaments at the inferior axillary recess with local T2 hyperintensity. In the absence of trauma history or changes of prior dislocation, consider adhesive capsulitis, particularly if there is range of motion restriction. 4. Probable variant sublabral foramen/labral fissure in the anterior superior labrum although nondisplaced labral tear in this region is hard to exclude. Dictated and Authenticated by: Mathieu Perez MD. Ordering:MELANIE Strauss MD
== END ==
PROVIDERS: PCP Nurse Practitioner Family; Visit Provider Student in an Organized Health Care Education/Training Program
DX: M25.512 Pain in left shoulder (principal); M75.102 Unspecified rotator cuff tear or rupture of left shoulder, not specified as traumatic; M19.012 Primary osteoarthritis, left shoulder; M75.32 Calcific tendinitis of left shoulder; M75.22 Bicipital tendinitis, left shoulder
CPT/HCPCS: 73221

== ENCOUNTER → 2023-07-23 08:05 | Outpatient (BNVA) | payer MEDICARE, MEDICAID, SELFPAY | PROVIDERS: PCP Nurse Practitioner Family; Referring Provider Nurse Practitioner Family; Visit Provider Student in an Organized Health Care Education/Training Program | DX: M75.102 Unspecified rotator cuff tear or rupture of left shoulder, not specified as traumatic (principal); M75.22 Bicipital tendinitis, left shoulder; M75.32 Calcific tendinitis of left shoulder | CPT/HCPCS: 99213 ==

== ENCOUNTER → 2023-09-18 08:55 | Outpatient (BNVA) | payer MEDICARE, SELFPAY | PROVIDERS: PCP Nurse Practitioner Family; Referring Provider Nurse Practitioner Family; Visit Provider Student in an Organized Health Care Education/Training Program | DX: M75.102 Unspecified rotator cuff tear or rupture of left shoulder, not specified as traumatic (principal); M75.22 Bicipital tendinitis, left shoulder; M75.32 Calcific tendinitis of left shoulder; Y99.0 Civilian activity done for income or pay | CPT/HCPCS: 99213 ==

== ENCOUNTER → 2023-12-11 03:44 | Outpatient (CLI) | payer MEDICARE, SELFPAY ==
--- NOTE | 2023-12-11 | DI.MAMMO_ITS ---
Exam(s) MAMMO SCREENING EXAM: MAMMO SCREENING CLINICAL HISTORY: SCREENING MAMMO FOR BREAST CANCER Z12.31 TECHNIQUE: Bilateral full field digital CC and MLO mammographic images were obtained with 3D tomosyn thesis and utilizing computer aided detection (CAD). COMPARISON: Available for comparison. FINDINGS: Masses/Architectural Distortion: No suspicious masses. No areas of architectural distortion. The ar eas of nodularity in the upper outer quadrant of the left breast appears stable. Microcalcifications: No suspicious pleomorphic-type are seen. Skin Thickening/Nipple Retraction: None. IMPRESSION: 1. No significant interval change with no specific features of malignancy noted. 2. Unless there is more urgent need, screening mammography is recommended, as per [place] [employer] guidelines. BI-RADS Category 2 - Benign Findings Breast Density - Category A - Almost entirely fatty Breast density category C or D implies that the patient has dense breast tissue. Dense breast tissue is very common and is not abnormal but dense breast tissue can make it harder to find cancer on a ma mmogram. Also, dense breast tissue may increase their breast cancer risk. This information about the result of the mammogram report was provided to the patient to raise their awareness. Use this report when you speak with the patient about their risks for breast cancer, which includes their family hist ory. At that time, you may recommend for more screening tests (Ultrasound or MRI) as they might be us eful based on their risk. A negative radiographic report should not delay biopsy if a dominant or clinically suspicious mass is present. Up to ten percent of cancers are not identified on mammography. A negative report may reinforce clinical impression. Adenosis and dense breasts may obscure an underlying neoplasm. False positive reports average 6 to 10%. Patient will receive a letter notifying them of these results.
--- NOTE | 2023-12-11 | DI.CTLCSR_ITS ---
Exam(s) CT CHEST LUNG CANCER SCREEN EXAM: CT CHEST LUNG CANCER SCREEN CLINICAL HISTORY: NICOTINE DEPENDENCE F17.210 SCREENING FOR LUNG CANCER TECHNIQUE: Imaging Protocol: Axial computed tomography images with coronal and sagittal reformatted images were created and reviewed COMPARISON: CT CT CHEST LUNG CANCER SCREEN from 12/07/2022 FINDINGS: The examination is limited due to patient motion artifact. Tracheobronchial tree: Patent where visualized. There is no bronchiectasis. Pulmonary parenchyma: No consolidation or dominant measurable mass. Mild centrilobular emphysematous changes are present. There is a small nodular infiltrate in the anterior aspect of the right upper l obe (series 6 image 166.). This may represent small airways infiltrate. Please correlate clinically . Lung Nodules: There is a stable 3 mm nodule in the superior segment of the left lower lobe (series 6, image 168). Mediastinum and Karla: No dominant adenopathy or fluid collection. The esophagus is unremarkable. Thyroid gland: Unremarkable. Lymph nodes: Unremarkable. Pleura: No effusion or pneumothorax. Heart: The heart is not dilated. Coronary artery calcifications are present. No pericardial effusion . Aorta: Thoracic aorta non-dilated.Atherosclerotic calcification is present. Upper abdomen: Unremarkable. Soft Tissues: Unremarkable. Bones: Within normal limits. IMPRESSION: No new pulmonary nodules. Stable 3 mm left lower lobe nodule. Lung RADS Cat 2 - Benign Appearance / Behavior: Nodules with a very low likelihood of becoming a clin ically active cancer due to size or lack of growth Lung-RADS 1.0 CATEGORIES: Category 0 - Prior chest CT exam(s) being located for comparison. Category 1 - Annual screening in 12 months. No nodules or definitely benign nodules. Category 2 - Annual screening in 12 months. Benign appearance. Nodules with low likelihood of becomin g active cancer. Category 3 - 6-month follow-up. Probably benign. Short-term follow-up suggested. Nodules with low lik elihood of becoming active cancer. Category 4A - 3-month follow-up and CT/PET if >8 mm in size. Suspicious finding. Findings which requi re additional testing. Category 4B - Findings which require additional testing and tissue sampling. Suspicious finding. Category 4X - Category 3 or 4 nodules with additional features or imaging findings that increases the suspicion of malignancy. Modifier S- Potentially clinically significant finding. (Non lung cancer) RADIATION DOSE DELIVERED: 64.76mGy.cm Total DLP 64.76mGy.cmTotal DLP DATA REPOSITORY: All CT scans at this facility are submitted to the National Radiology Data Registry (NRDR) Dose Index Registry (DIR) with the [employer] ([employer]). RADIATION OPTIMIZATION: All CT scans at this facility use at least one of these dose optimization te chniques: automated exposure control; mA and/or kV adjustment per patient size (includes targeted exa ms where dose is matched to clinical indication); or iterative reconstruction.
== END ==
PROVIDERS: PCP Nurse Practitioner Family; Visit Provider Nurse Practitioner Family
DX: F17.210 Nicotine dependence, cigarettes, uncomplicated (principal); Z12.31 Encounter for screening mammogram for malignant neoplasm of breast; Z12.2 Encounter for screening for malignant neoplasm of respiratory organs
CPT/HCPCS: 71271; 77063; 77067

== ENCOUNTER 2024-08-29 17:31 | Emergency (ER) | payer MEDICARE, SELFPAY ==
[2024-08-29] VITALS (20 sets, daily range): BP systolic 109–161; BP diastolic 41–81; PULSE 77–95; RESP 5–24; TEMP 36.3; O2SAT 87–100
--- NOTE | 2024-08-29 17:30 | RT.EKG_ITS ---
APPROVED REPORT Exam: Resting ECG Reason for Exam: SOB Patient Location: E HR:90 bpm ECG Measurements Heart Rate 90 AXIS NC 132 P 71 QRSd 90 QRS 57 QT 350 T -35 QTc 428 Conclusion Sinus rhythm 90 normal axis no stemi
--- NOTE | 2024-08-29 18:00 | DI.RAD_ITS ---
Exam(s) XR PORTABLE CHEST AP EXAM: XR PORTABLE CHEST AP CLINICAL HISTORY: SOB TECHNIQUE: 2D digital imaging was performed of the chest. One image was obtained. An AP view was ob tained. 2D digital imaging was performed of the chest. Two images were obtained. PA and lateral views were obtained. COMPARISON: CR,XR XR PORTABLE CHEST AP from 03/12/2022 FINDINGS: MEDIASTINUM: Normal. HEART: Normal. PULMONARY VASCULATURE: Normal. LUNGS: Clear. PLEURAL SPACE: No pleural effusion or pneumothorax. BONE:Within normal limits for the patient's age. There is calcific tendinitis of the right shoulder. OTHER FINDINGS:Normal. IMPRESSION: No acute pulmonary findings. DATA REPOSITORY: RADIATION DOSE DELIVERED:
[2024-08-29 18:18] LABS: Abs Immature Grans 0.06 10^3/uL (0.0-0.06); Absolute Lymphocyte Count 1.74 10^3/uL (1.2-3.4); Absolute Monocyte Count 0.94 10^3/uL (0.1-0.8); Basophils % 0.3 %; Eosinophils % 1.6 %; HCT 39.2 % (36.0-46.0); HGB 12.6 g/dL (11.2-15.7); Immature Grans % 0.4 %; Lymphocytes % 11.4 %; MCH 32.4 pg (27.0-33.0); MCHC 32.1 % (32.0-36.0); MCV 101 fL (80-95); Monocytes % 6.2 %; Neutrophils % 80.1 %; Platelet Count 334 10^3/uL (130-400); RBC 3.89 10^6/uL (3.93-5.22); RDW 13.1 % (11.7-14.6); WBC 15.23 10^3/uL (4.4-10.8)
[2024-08-29 18:21] LABS: Absolute Basophil Count 0.05 10^3/uL (0.0-0.2); Absolute Eosinophil Count 0.24 10^3/uL (0.0-0.7)
[2024-08-29] MEDS: Albuterol/Ipratropium 3 ML UPD VIAL UPD (18:24)
[2024-08-29] MEDS: methylPREDNISolone SUCC 125 MG VIAL IVP (18:24)
[2024-08-29 18:39] LABS: Anion Gap 5.4 mmol/L (3-11); BUN 11 mg/dL (7-18); CO2 30.6 mmol/L (21.0-32.0); CREATININE 0.8 mg/dL (0.55-1.02); Calcium 9.5 mg/dL (8.5-10.1); Chloride 105 mmol/L (98-107); Estimated GFR 79.71 (mL/min/1.73m2); Glucose 110 mg/dL (74-106); NT-proBNP 129 pg/mL (<300); Potassium 3.9 mmol/L (3.5-5.1); Sodium 141 mmol/L (136-145)
[2024-08-29] MEDS: Albuterol HFA 8 GM 60 PUFF INH IH (19:27)
--- NOTE | 2024-08-29 19:43 | DI.VRAD_ITS ---
PROCEDURE INFORMATION: Exam: XR Chest Exam date and time: 08/29/2024 6:20 PM Age: 68 years old Clinical indication: Shortness of breath; SOB TECHNIQUE: Imaging protocol: Radiologic exam of the chest. Views: 1 view. COMPARISON: CT CHEST LUNG CANCER SCREEN 12/11/2023 8:23 AM FINDINGS: Lungs: No pulmonary consolidation is seen. Pleural spaces: No pleural effusion or pneumothorax is demonstrated. Heart/Mediastinum: The heart appears normal in size. Bones/joints: There are osteophytes along the thoracic spinal margin. There is soft tissue calcification projecting along the superior margin of the right humeral head in the expected location of the supraspinatus tendon. IMPRESSION: 1. No active disease is seen in the chest. 2. Calcific tendinosis at the right shoulder in the expected location of the supraspinatus tendon. Dictated and Authenticated by: Mao Urban MD. Orderin Veronica Cheema MD
--- NOTE | 2024-08-29 19:48 | ED.GENADUL_ITS ---
Discharge Plan Disposition Patient Disposition: Home Condition: Stable Discharge Details Clinical Impression: COPD exacerbation Primary Care Provider: Kirstie Vee ED Provider: Kareem Martin Home Meds and New Rx's Prescriptions: New prednisone 20 mg tablet 40 mg PO DAILY 4 Days Qty: 8 0RF albuterol sulfate 90 mcg/actuation HFA aerosol inhaler 2 puff inhalation Q6H PRNQty: 8.5 3RF albuterol sulfate 2.5 mg /3 mL (0.083 %) solution for nebulization 2.5 mg inhalation QID PRNQty: 90 3RF No Action acetaminophen [Acetaminophen Extra Strength] 500 MG tablet 1,000 mg PO Q4H PRN Qvar RediHaler 80 mcg/actuation HFA aerosol breath activated 2 inh inhalation BID albuterol sulfate [ProAir HFA] 200 PUFF/INH HFA aerosol inhaler 2 puff Inhalation Q4H PRN PRNQty: 1 0RF Inhaler, Assist Devices [Pocket Chamber] 1 ea miscellaneous DIRECTED Qty: 0 0RF fluticasone propion-salmeterol [Advair HFA] 115-21 mcg/actuation HFA aerosol inhaler 1 inh inhalation BID Incruse Ellipta 62.5 mcg/actuation blister with device 1 inh inhalation DAILY Discharge Instructions Instructions: COPD Exacerbation, Adult ED Additional Instructions: Start the steroids tomorrow, your first dose was given in the emergency department You were sent home with an albuterol inhaler and additional prescriptions and refills were sent to the pharmacy. You are also sent home with Nebules to use with nebulizer machine Return with worsening shortness of breath, significant cough, lower oxygen levels. Otherwise please follow-up with your primary care provider. HPI General Date/Time Provider Initiated Documentation: 08/29/24 17:57 . Limitations to Documentation: no limitations . Information obtained by: patient . HPI Narrative: 68-year-old female with past medical history of COPD, no oxygen dependence, chronic smoker presents for evaluation of 1 day of worsening shortness of breath. Cough productive of thin clear mucus. Denies any fever. Reports that she does have inhalers at home, but does not have any albuterol to use. Related Data Home Medications ?Medication ?Instructions ?Recorded ?Confirmed acetaminophen 500 mg tablet 1,000 mg PO Q4H PRN 07/05/14 08/29/24 (Acetaminophen Extra Strength) albuterol sulfate 90 mcg/actuation 2 puff inhalation Q4H PRN PRN #1 01/14/18 08/29/24 aerosol inhaler (ProAir HFA) inh beclomethasone dipropionate 80 2 inh inhalation BID 12/02/20 08/29/24 mcg/actuation HFA breath activated aerosol (Qvar RediHaler) Inhaler, Assist Devices [Pocket 1 ea miscellaneous DIRECTED ##0 03/13/22 08/29/24 Chamber] albuterol sulfate 2.5 mg/3 mL 2.5 mg (3 mL) inhalation QID PRN 08/29/24 (0.083 %) solution for nebulization #90 mL albuterol sulfate 90 mcg/actuation 2 puff inhalation Q6H PRN #8.5 08/29/24 aerosol inhaler grams fluticasone propionate 115 1 inh inhalation BID 08/29/24 08/29/24 mcg-salmeterol 21 mcg/actuation HFA inhaler (Advair HFA) prednisone 20 mg tablet 40 mg (2 x 20 mg) PO DAILY 4 days 08/29/24 #8 tabs umeclidinium 62.5 mcg/actuation 1 inh inhalation DAILY 08/29/24 08/29/24 blister powder for inhalation (Incruse Ellipta) Previous Rx's ?Medication ?Instructions ?Recorded albuterol sulfate 90 mcg/actuation 2 puff inhalation Q4H PRN PRN #1 01/14/18 aerosol inhaler (ProAir HFA) inh Inhaler, Assist Devices [Pocket 1 ea miscellaneous DIRECTED ##0 03/13/22 Chamber] albuterol sulfate 2.5 mg/3 mL 2.5 mg (3 mL) inhalation QID PRN 08/29/24 (0.083 %) solution for nebulization #90 mL albuterol sulfate 90 mcg/actuation 2 puff inhalation Q6H PRN #8.5 08/29/24 aerosol inhaler grams prednisone 20 mg tablet 40 mg (2 x 20 mg) PO DAILY 4 days 08/29/24 #8 tabs Allergies Allergy/AdvReac Type Severity Reaction Status Date / Time oxycodone Allergy Mild rash Unverified 09/18/23 09:13 General Stated Complaint: RespSymp AMA: 3 Exam Narrative Exam Narrative: Review of Systems: All systems reviewed & are unremarkable except as noted in HPI and below Well-developed, no acute distress NCAT PERRL, normal conjunctiva RRR no murmur Unlabored respiratory effort no significant tachypnea, speaking in full sent ences, saturation 90% on room air diminished air movement particularly at the bases without crackles, wheezing expiratory Nondistended abdomen Extremities w/o edema Course Vital Signs Vital signs: Vital Signs Temperature 36.3 C L 08/29/24 17:35 Pulse 95 H 08/29/24 17:35 Respiratory Rate 24 08/29/24 17:35 Blood Pressure 161/81 H 08/29/24 17:35 Pulse Oximetry 87 L 08/29/24 17:35 Temperature 36.3 C L 08/29/24 17:39 Pulse 83 08/29/24 19:20 Pulse 84 08/29/24 19:20 Respiratory Rate 19 08/29/24 19:20 Respiratory Effort Short of Breath 08/29/24 17:51 Respiratory Depth Normal 08/29/24 17:51 Blood Pressure 136/45 L 08/29/24 19:01 Blood Pressure Mean 77 08/29/24 19:01 Blood Pressure Position Sitting 08/29/24 17:39 Pulse Oximetry 88 L 08/29/24 19:20 Respiratory End-tidal CO2 08/29/24 19:01 Oxygen Delivery Method Room Air 08/29/24 18:24 Oxygen Flow Rate 0 08/29/24 18:24 Comment room air 08/29/24 19:01 Lab/Test Results Lab/Test Results: Laboratory Tests Range/Units 08/29/24 18:13 WBC (4.4-10.8) 10^3/uL 15.23 H RBC (3.93-5.22) 10^6/uL 3.89 L Hgb (11.2-15.7) g/dL 12.6 Hct (36.0-46.0) % 39.2 MCV (80-95) fL 101 H MCH (27.0-33.0) pg 32.4 MCHC (32.0-36.0) % 32.1 RDW (11.7-14.6) % 13.1 Plt Count (130-400) 10^3/uL 334 MPV (8.0-11.0) fL 10.0 Immature Gran % % 0.4 Neutrophils % % 80.1 Lymphocytes % % 11.4 Monocytes % % 6.2 Eosinophils % % 1.6 Basophils % % 0.3 Nucleated RBC % (0.0-0.3) % 0.0 Absolute Neutrophils (1.2-6.7) 10^3/uL 12.20 H Absolute Lymphocytes (1.2-3.4) 10^3/uL 1.74 Absolute Monocytes (0.1-0.8) 10^3/uL 0.94 H Absolute Eosinophils (0.0-0.7) 10^3/uL 0.24 Absolute Basophils (0.0-0.2) 10^3/uL 0.05 Sodium (136-145) mmol/L 141 Potassium (3.5-5.1) mmol/L 3.9 Chloride (98-107) mmol/L 105 Carbon Dioxide (21.0-32.0) mmol/L 30.6 Anion Gap (3-11) mmol/L 5.4 BUN (7-18) mg/dL 11 Creatinine (0.55-1.02) mg/dL 0.8 Est GFR (CKD-EPI 2020) (mL/min/1.73m2) 79.71 Glucose (74-106) mg/dL 110 H Calcium (8.5-10.1) mg/dL 9.5 NT-Pro-B Natriuret Pep (<300) pg/mL 129 Medical Decision Making Emergent evaluation of cough and worsening shortness of breath. Has longstanding COPD, no oxygen dependence, does have controller inhalers at home, but does not have albuterol for rescue. She is having some decreased air movement. Initial differential includes COPD exacerbation, pneumonia, influenza or other viral illness. Patient was given bronchodilator treatment as well as steroids and her IV. Lab work was checked she has a mild leukocytosis no anemia no significant left shift. No electrolyte derangement. Her viral testing was negative. Her chest x-ray does not reveal a focal consolidation. Given that she has had 1 day symptoms, and no significant change in mucus or fever, I do not feel antibiotics is indicated. Will prescribe albuterol to use at home as well as a steroid burst. Return precautions advised. Recommend close follow-up with PCP. Quality:[facility] Health Related Social Needs: No Data to Display PFSH All Active Problems (Updated 08/29/24 @ 19:21 by Kareem Martin MD) Pain in left acromioclavicular joint (Acute) Tendinitis of long head of biceps brachii of left shoulder (Acute) Calcific tendinitis of left shoulder (Acute) Left rotator cuff tear (Acute 05/17/23) Acute respiratory failure with hypoxia and hypercapnia (Acute) COPD exacerbation (Acute) Hypoxemia (Acute) Tubular adenoma of colon (Acute) Anemia (Chronic) SOB (shortness of breath) (Acute) COPD (chronic obstructive pulmonary disease) (Chronic) Tobacco use disorder (Acute) Asthma, intermittent (Acute) Chronic pain (Chronic) Headache (Acute) Fibrocystic breast disease (Acute) GERD (gastroesophageal reflux disease) (Chronic) Heart murmur (Acute) Screening for colon cancer (Acute) Medical History Chest pain Per pt. states she has not had chest pain in years, and it was nothing when she had it years ago. Surgical History History of laparoscopic appendectomy Hx of section Hx of colonoscopy (~04/2021) Hx of hysterectomy Social History (Updated 03/12/22 @ 03:41 by Glenn Azar MD) Smoking/Tobacco Use Status: Current every day Tobacco Type: cigarettes Tobacco: How many years used: 45 Smoking risk assessment performed?: Yes Alcohol Intake: never Drug use: Never Substance use type: does not use Do you feel safe at home: Yes Do you feel safe in your relationship?: Yes
== END 2024-08-29 19:34 | disposition home or self-care (01) ==
PROVIDERS: Emergency Provider Emergency Medicine; PCP Nurse Practitioner Family
DX: J44.1 Chronic obstructive pulmonary disease with (acute) exacerbation (principal); F17.210 Nicotine dependence, cigarettes, uncomplicated; R03.0 Elevated blood-pressure reading, without diagnosis of hypertension
CPT/HCPCS: 36415; 80048; 93005; 94640; 96374; 99284; 71045; 83880; 85025; 93010; J2919; J7620

== ENCOUNTER 2024-09-11 15:40 | Inpatient (IN) | payer MEDICARE, SELFPAY ==
[2024-09-11] VITALS (61 sets, daily range): BP systolic 96–176; BP diastolic 44–109; PULSE 69–99; RESP 9–28; TEMP 36.1–36.8; O2SAT 88–99
--- NOTE | 2024-09-11 15:45 | RT.EKG_ITS ---
APPROVED REPORT Exam: Resting ECG Reason for Exam: dyspnea Patient Location: E HR:86 bpm ECG Measurements Heart Rate 86 AXIS NJ 137 P 87 QRSd 89 QRS 71 QT 349 T 7 QTc 418 Conclusion Sinus rhythm...normal P axis, V-rate 60- 99 I have reviewed and interpreted ECG and agree with software generated interpretation.
--- NOTE | 2024-09-11 16:00 | DI.RAD_ITS ---
Exam(s) XR PORTABLE CHEST AP EXAM: XR PORTABLE CHEST AP CLINICAL HISTORY: sob, cough, eval for pneumonia TECHNIQUE: 2D digital imaging was performed. COMPARISON: No exams were available for comparison FINDINGS: LUNGS: Clear. No pleural abnormality seen. HEART: Normal size. AORTA: Normal diameter. BONES: Unremarkable for age. Soft tissues: Unremarkable. IMPRESSION: No acute findings. DATA REPOSITORY: RADIATION DOSE DELIVERED:
[2024-09-11] MEDS: predniSONE 20 MG TAB 60 MG PO (16:53)
[2024-09-11] MEDS: Albuterol/Ipratropium 3 ML UPD VIAL 6 ML UPD (16:54)
[2024-09-11 17:05] LABS: COVID-19 PCR Negative (Negative); Influenza A PCR Negative (Negative); Influenza B PCR Negative (Negative); RSV PCR Negative (Negative); Source Nasopharynx
--- NOTE | 2024-09-11 17:09 | ED.GENADUL_ITS ---
Discharge Plan Disposition Patient Disposition: Admit to [facility] Condition: Improving Discharge Details Chief Complaint: RespSymp Clinical Impression: Acute hypoxic respiratory failure, Pneumonia Primary Care Provider: Kirstie Vee ED Provider: Malik Espinal Home Meds and New Rx's Prescriptions: No Action acetaminophen [Acetaminophen Extra Strength] 500 MG tablet 1,000 mg PO Q4H PRN Qvar RediHaler 80 mcg/actuation HFA aerosol breath activated 2 inh inhalation BID albuterol sulfate [ProAir HFA] 200 PUFF/INH HFA aerosol inhaler 2 puff Inhalation Q4H PRN PRNQty: 1 0RF Inhaler, Assist Devices [Pocket Chamber] 1 ea miscellaneous DIRECTED Qty: 0 0RF fluticasone propion-salmeterol [Advair HFA] 115-21 mcg/actuation HFA aerosol inhaler 1 inh inhalation BID Incruse Ellipta 62.5 mcg/actuation blister with device 1 inh inhalation DAILY albuterol sulfate 90 mcg/actuation HFA aerosol inhaler 2 puff inhalation Q6H PRNQty: 8.5 3RF albuterol sulfate 2.5 mg /3 mL (0.083 %) solution for nebulization 2.5 mg inhalation QID PRNQty: 90 3RF HPI General Date/Time Provider Initiated Documentation: 09/11/24 16:03 . HPI Narrative: 68-year-old female with a past medical history of COPD not on oxygen, regular tobacco use, GERD, who does have an albuterol inhaler at home, presents today for evaluation of cough and shortness of breath. Patient states that she has been short of breath since yesterday. She does have a mild chronic cough with thick productive sputum. She denies fever or chills. No numbness or tingling. She denies any significant chest pain or discomfort. No pleuritic chest pain. No hemoptysis. No other complaints at this time. She has been using her inhalers but it has not been helping. Related Data Home Medications ?Medication ?Instructions ?Recorded ?Confirmed acetaminophen 500 mg tablet 1,000 mg PO Q4H PRN 07/05/14 09/11/24 (Acetaminophen Extra Strength) albuterol sulfate 90 mcg/actuation 2 puff inhalation Q4H PRN PRN #1 01/14/18 09/11/24 aerosol inhaler (ProAir HFA) inh beclomethasone dipropionate 80 2 inh inhalation BID 12/02/20 09/11/24 mcg/actuation HFA breath activated aerosol (Qvar RediHaler) Inhaler, Assist Devices [Pocket 1 ea miscellaneous DIRECTED ##0 03/13/22 09/11/24 Chamber] albuterol sulfate 2.5 mg/3 mL 2.5 mg (3 mL) inhalation QID PRN 08/29/24 09/11/24 (0.083 %) solution for nebulization #90 mL albuterol sulfate 90 mcg/actuation 2 puff inhalation Q6H PRN #8.5 08/29/24 09/11/24 aerosol inhaler grams fluticasone propionate 115 1 inh inhalation BID 08/29/24 09/11/24 mcg-salmeterol 21 mcg/actuation HFA inhaler (Advair HFA) umeclidinium 62.5 mcg/actuation 1 inh inhalation DAILY 08/29/24 09/11/24 blister powder for inhalation (Incruse Ellipta) Previous Rx's ?Medication ?Instructions ?Recorded albuterol sulfate 90 mcg/actuation 2 puff inhalation Q4H PRN PRN #1 01/14/18 aerosol inhaler (ProAir HFA) inh Inhaler, Assist Devices [Pocket 1 ea miscellaneous DIRECTED ##0 03/13/22 Chamber] albuterol sulfate 2.5 mg/3 mL 2.5 mg (3 mL) inhalation QID PRN 08/29/24 (0.083 %) solution for nebulization #90 mL albuterol sulfate 90 mcg/actuation 2 puff inhalation Q6H PRN #8.5 08/29/24 aerosol inhaler grams Allergies Allergy/AdvReac Type Severity Reaction Status Date / Time oxycodone Allergy Mild rash Unverified 09/11/24 15:48 General Stated Complaint: RespSymp AMA: 3 Exam Narrative Exam Narrative: 1.Const: Well-nourished, Well-developed, appearing stated age 2.Eyes: PERRL, no conjunctival injection, and symmetrical lids. 3.ENT: Atraumatic external nose and ears. Moist MM. Neck: Symmetric, trachea midline, No thyromegaly. 4.CVS: +S1/S2, Peripheral pulses 2+ and equal in all extremities. Brisk capillary refill in all extremities. 5.RESP: Diminished breath sounds throughout, rhonchorous breath sounds, mild crackle/rhonchi in the right lower lung field. 6.GI: Soft, Nontender/Nondistended, No hepatosplenomegaly. No guarding or rebound. 7.MSK: Normocephalic/Atraumatic, Extremities w/o deformity or ttp No cyanosis or clubbing, Normal movement of all extremities 8.Skin: Warm, Dry. No rashes or lesions. 9.Neuro: facility practice specialist II-XII grossly intact. Sensation grossly intact, no focal neurologic deficits. 10.Psych: (AAO) x3. Appropriate mood and affect Course Vital Signs Vital signs: Vital Signs Temperature 36.6 C 09/11/24 15:44 Pulse 90 09/11/24 15:44 Respiratory Rate 24 09/11/24 15:44 Blood Pressure 143/79 H 09/11/24 15:44 Pulse Oximetry 88 L 09/11/24 15:44 Temperature 36.6 C 09/11/24 15:49 Pulse 84 09/11/24 16:54 Pulse 77 09/11/24 16:50 Respiratory Rate 26 H 09/11/24 16:54 Respiratory Effort Short of Breath 09/11/24 16:57 Respiratory Depth Deep 09/11/24 16:57 Blood Pressure 130/57 L 09/11/24 16:45 Blood Pressure Mean 83 09/11/24 16:45 Pulse Oximetry 96 09/11/24 16:54 Oxygen Delivery Method Room Air 09/11/24 16:54 Oxygen Flow Rate 0 09/11/24 16:54 Lab/Test Results Lab/Test Results: Laboratory Tests Range/Units 09/11/24 04:25 COVID-19 Source Nasopharynx SARS-CoV-2 (PCR) (Negative) Negative Influenza Type A (PCR) (Negative) Negative Influenza Type B (PCR) (Negative) Negative RSV (PCR) (Negative) Negative Medical Decision Making 68-year-old female with a past medical history of COPD not on oxygen, regular tobacco use, GERD, who does have an albuterol inhaler at home, presents today for evaluation of cough and shortness of breath. Patient states that she has been short of breath since yesterday. She does have a mild chronic cough with thick productive sputum. She denies fever or chills. No numbness or tingling. She denies any significant chest pain or discomfort. No pleuritic chest pain. No hemoptysis. No other complaints at this time. She has been using her inhalers but it has not been helping. Exam demonstrates diminished lung sounds throughout, oxygen is around 88% on room air. Rhonchi in the right lower lung cowan. Concern for potential pneumonia in conjunction with COPD exacerbation. EKG benign. No pleuritic chest pain to suggest PE, no tearing or ripping or crushing sensation within normal EKG to suggest ACS. Will give prednisone, breathing treatment, get chest x-ray to evaluate for pneumonia, monitor closely and reassess. X-ray results have come back and were read as negative by Dr. Umana. I did have concern that there was evidence of right-sided pneumonia. I did contact radiology and spoke with Dr. Beal who is on here at [facility], he agrees that there is evidence of pneumonia there in the right lung field. Patient has been given Levaquin for oral treatment. She has received 60 mg of oral prednisone. Despite this and multiple breathing treatments oxygenation still drops to 88%. Patient would benefit from admission in this scenario. VBG benign. Patient stable on 2 L. COVID flu and RSV testing is negative. Discussed the case with the hospitalist, he agrees with the assessment plan. Patient will be admitted for continued antibiotics and respiratory management. I have extensively reviewed the treatment plan with the patient. I have addressed all patient concerns at this time. I have also discussed the plan with the admitting physician and they agree with the current assessment and plan and have agreed to assume responsibility for the patient. All parties demonstrate verbal understanding and agreement with our assessment and plan at this time. The documentation in this chart was dictated using [employer] dictation software. Please excuse any dictation errors. Quality:[facility] Health Related Social Needs: No Data to Display Critical Care Time Critical Care Time Critical Care Time: Yes Total Critical Care Time: 45 Attestation: Upon my evaluation, this patient had a high probability of imminent or life- threatening deterioration, which required my direct attention, intervention, and personal management. I have personally provided 45 minutes of critical care time exclusive of time spent on separately billable procedures. Time includes review of laboratory data, radiology results, discussion with consultants, and monitoring for potential decompensation. Interventions were performed as documented. PFSH All Active Problems (Updated 09/11/24 @ 21:40 by Malik Espinal DO) Pneumonia (Acute) Acute hypoxic respiratory failure (Acute) Borderline hyperglycemia (Chronic) Pneumonia (Acute) Acute hypoxic respiratory failure (Acute) Pain in left acromioclavicular joint (Acute) Tendinitis of long head of biceps brachii of left shoulder (Acute) Calcific tendinitis of left shoulder (Acute) Left rotator cuff tear (Acute 05/17/23) Acute respiratory failure with hypoxia and hypercapnia (Acute) COPD exacerbation (Acute) Hypoxemia (Acute) Tubular adenoma of colon (Acute) Anemia (Chronic) SOB (shortness of breath) (Acute) COPD (chronic obstructive pulmonary disease) (Chronic) Tobacco use disorder (Chronic) Asthma, intermittent (Acute) Chronic pain (Chronic) Headache (Acute) Fibrocystic breast disease (Acute) GERD (gastroesophageal reflux disease) (Chronic) Heart murmur (Acute) Screening for colon cancer (Acute) Medical History Chest pain Per pt. states she has not had chest pain in years, and it was nothing when she had it years ago. Surgical History History of laparoscopic appendectomy Hx of section Hx of colonoscopy (~04/2021) Hx of hysterectomy Social History (Updated 03/12/22 @ 03:41 by Glenn Azar MD) Smoking/Tobacco Use Status: Current every day Tobacco Type: cigarettes Tobacco: How many years used: 45 Smoking risk assessment performed?: Yes Alcohol Intake: never Drug use: Never Substance use type: does not use Do you feel safe at home: Yes Do you feel safe in your relationship?: Yes
[2024-09-11] MEDS: levoFLOXacin 500 MG, levoFLOXacin 250 MG 750 MG PO (18:14)
[2024-09-11 18:17] LABS: Abs Immature Grans 0.08 10^3/uL (0.0-0.06); Absolute Lymphocyte Count 1.33 10^3/uL (1.2-3.4); Absolute Monocyte Count 0.82 10^3/uL (0.1-0.8); Basophils % 0.3 %; HCT 37.3 % (36.0-46.0); HGB 12.2 g/dL (11.2-15.7); Immature Grans % 0.4 %; Lymphocytes % 7.2 %; MCH 32.4 pg (27.0-33.0); MCHC 32.7 % (32.0-36.0); MCV 99 fL (80-95); MPV 9.9 fL (8.0-11.0); Monocytes % 4.4 %; Neutrophils % 86.7 %; Platelet Count 332 10^3/uL (130-400); RBC 3.76 10^6/uL (3.93-5.22); RDW 12.8 % (11.7-14.6); RDW-SD 46.8 fL; WBC 18.54 10^3/uL (4.4-10.8)
[2024-09-11 18:22] LABS: Absolute Basophil Count 0.06 10^3/uL (0.0-0.2); Absolute Eosinophil Count 0.19 10^3/uL (0.0-0.7); Absolute Neutrophil Count 16.07 10^3/uL (1.2-6.7)
[2024-09-11 18:34] LABS: ALT 25 U/L (14-59); AST 14 U/L (15-37); Albumin 3.1 g/dL (3.4-5.0); Alkaline Phosphatase 92 U/L (46-116); Anion Gap 10.6 mmol/L (3-11); BUN 9 mg/dL (7-18); Bilirubin, Total 0.4 mg/dL (0.2-1.0); CO2 27.4 mmol/L (21.0-32.0); CREATININE 0.8 mg/dL (0.55-1.02); Calcium 9.2 mg/dL (8.5-10.1); Chloride 104 mmol/L (98-107); Estimated GFR 79.71 (mL/min/1.73m2); Glucose 133 mg/dL (74-106); Potassium 4.1 mmol/L (3.5-5.1); Sodium 142 mmol/L (136-145); Total Protein 7.4 g/dL (6.4-8.2)
[2024-09-11 19:27] LABS: BE (Venous) 2 mmol/L (-2-3); HCO3 (Venous) 26 mmol/L (23-28); O2 Sat (Venous) 95 %; TCO2 (Venous) 24 mmol/L (24-29); pCO2 (Venous) 42 mmHg (41-51); pH (Venous) 7.41 (7.31-7.41); pO2 (Venous) 72 mmHg
--- NOTE | 2024-09-11 20:46 | W.PM.HP.N ---
Date of service: 09/11/24 Time of Service: 20:46 Assessment and Plan Assessment and plan (1) Acute hypoxic respiratory failure: Start date: 09/11/24 Status: Acute Assessment and plan: This is a 68-year-old lady who smokes daily presenting with respiratory symptoms and new oxygen needs. She does not have a right lower lobe pneumonia exacerbation of COPD. She will be admitted for IV antibiotic therapy and aggressive nebulizer treatment with Solu-Medrol for COPD exacerbation. She will be offered nicotine patches if desired and long-term she is advised to stop smoking tobacco. She is a full code. (2) Pneumonia: Start date: 09/11/24 Status: Acute Assessment and plan: Right lower lobe with patient initiated on Levaquin which will be continued. (3) COPD (chronic obstructive pulmonary disease): Status: Chronic Assessment and plan: Aggressive nebulizer treatments with cessation of tobacco, O2 supplementation and IV Solu-Medrol. Wean to prednisone and oral antibiotics as tolerated for discharge. She hopefully will not be discharged on oxygen supplementation. (4) Tobacco use disorder: Status: Chronic Assessment and plan: Advised long-term cessation. Nicotine patch if desired. (5) Borderline hyperglycemia: Status: Chronic Assessment and plan: Observe on daily labs and if increasing on IV steroids, start before meals and at bedtime glucometer checks with coverage. Patient does not have an overt diagnosis of diabetes mellitus. History of Present Illness History of Present Illness Chief Complaint: 1 day history of cough and shortness of breath, worsening. Narrative: This is a 68-year-old female patient who is a chronic smoker and has COPD on multiple inhalers for control and rescue inhaler who presents with a 1 day history of worsening shortness of breath. She was found to be hypoxic in the ED which is a new problem for her not being, on home O2. VBG did not reveal hypercapnia the patient did have a significant elevated WBC along with right lower lobe infiltrate on chest x-ray. Her flu/COVID/RSV screening were negative. She was initiated on Levaquin, given prednisone in anticipation of the discharge home though her hypoxemia persisted requiring admission. With will continue on IV Solu-Medrol with IV Levaquin and aggressive respiratory treatment with nebulizers. She is not asking for nicotine supplement at this time. Her other chronic medical problems appear to be stable which include GERD and chronic pain on Tylenol. She denies any hemoptysis, pleuritic type chest pain or change in production of sputum which is chronic. She has no GI symptoms or focal neurological symptoms. She is a full code. Review of Systems Narrative: 13 point review of systems otherwise unrevealing or stable. PFSH All Active Problems Pneumonia (Acute) Acute hypoxic respiratory failure (Acute) Borderline hyperglycemia (Chronic) Pneumonia (Acute) Acute hypoxic respiratory failure (Acute) Pain in left acromioclavicular joint (Acute) Tendinitis of long head of biceps brachii of left shoulder (Acute) Calcific tendinitis of left shoulder (Acute) Left rotator cuff tear (Acute 05/17/23) Acute respiratory failure with hypoxia and hypercapnia (Acute) COPD exacerbation (Acute) Hypoxemia (Acute) Tubular adenoma of colon (Acute) Anemia (Chronic) SOB (shortness of breath) (Acute) COPD (chronic obstructive pulmonary disease) (Chronic) Tobacco use disorder (Chronic) Asthma, intermittent (Acute) Chronic pain (Chronic) Headache (Acute) Fibrocystic breast disease (Acute) GERD (gastroesophageal reflux disease) (Chronic) Heart murmur (Acute) Screening for colon cancer (Acute) Medical History Chest pain Per pt. states she has not had chest pain in years, and it was nothing when she had it years ago. Surgical History History of laparoscopic appendectomy Hx of section Hx of hysterectomy Hx of colonoscopy (~04/2021) Social History Smoking/Tobacco Use Status: Current every day Tobacco Type: cigarettes Tobacco: How many years used: 45 Smoking risk assessment performed?: Yes Alcohol Intake: never Drug use: Never Substance use type: does not use Housing: house Do you feel safe at home: Yes Do you feel safe in your relationship?: Yes Meds Allergies and Home Medications Allergies Allergy/AdvReac Type Severity Reaction Status Date / Time oxycodone Allergy Mild rash Unverified 09/11/24 15:48 Home Medications ?Medication ?Instructions ?Recorded ?Confirmed ?Type acetaminophen 500 mg tablet 1,000 mg PO Q4H PRN 07/05/14 09/11/24 History (Acetaminophen Extra Strength) albuterol sulfate 90 mcg/actuation 2 puff inhalation Q4H PRN PRN #1 01/14/18 09/11/24 Rx aerosol inhaler (ProAir HFA) inh beclomethasone dipropionate 80 2 inh inhalation BID 12/02/20 09/11/24 History mcg/actuation HFA breath activated aerosol (Qvar RediHaler) Inhaler, Assist Devices [Pocket 1 ea miscellaneous DIRECTED ##0 03/13/22 09/11/24 Rx Chamber] albuterol sulfate 2.5 mg/3 mL 2.5 mg (3 mL) inhalation QID PRN 08/29/24 09/11/24 Rx (0.083 %) solution for nebulization #90 mL albuterol sulfate 90 mcg/actuation 2 puff inhalation Q6H PRN #8.5 08/29/24 09/11/24 Rx aerosol inhaler grams fluticasone propionate 115 1 inh inhalation BID 08/29/24 09/11/24 History mcg-salmeterol 21 mcg/actuation HFA inhaler (Advair HFA) umeclidinium 62.5 mcg/actuation 1 inh inhalation DAILY 08/29/24 09/11/24 History blister powder for inhalation (Incruse Ellipta) Exam Narrative Exam Narrative: General: Patient appears older than stated age, in no acute distress, alert and oriented x 3. HEENT: Normocephalic, eyes with pupils equal and react to light symmetrically, extraocular movement intact and sclera anicteric. Patient is edentulous with slightly dry oral mucosa. Neck: Supple without JVD. Back: Kyphotic without CVA tenderness. Lungs: Bronchovesicular breath sounds diffusely with fine inspiratory crackles right base with decreased aeration. No other focalizing rales or rhonchi. No expiratory wheeze. Breast: Exam deferred. Heart: Regular rate and rhythm with no murmurs or gallops appreciated. Abdomen: Slightly obese contour, soft and nontender to palpation with no palpable hepatosplenomegaly. Bowel sounds positive all quadrants. Genitalia/rectal: Exam deferred. EXTR: Without clubbing, cyanosis or grossly pitting edema. Good capillary refill. Skin: Normal color, warm and dry. Neuro: Cranial nerves II through XII gross intact, no focalized motor deficits. No tremor. Psych: Normal affect and mood. No abnormal thought processes. Remote and recent memory intact. Results Imaging Imaging Studies: EXAM: XR PORTABLE CHEST AP CLINICAL HISTORY: sob, cough, eval for pneumonia TECHNIQUE: 2D digital imaging was performed. COMPARISON: No exams were available for comparison FINDINGS: LUNGS: Clear. No pleural abnormality seen. HEART: Normal size. AORTA: Normal diameter. BONES: Unremarkable for age. Soft tissues: Unremarkable. IMPRESSION: No acute findings. (Second reading noted right lower lobe infiltrates by local radiology) Labs 09/11/24 18:12 09/11/24 18:12 Labs: Laboratory Results - last 24 hr 09/11/24 09/11/24 09/11/24 04:25 18:12 19:20 WBC 18.54 H RBC 3.76 L Hgb 12.2 Hct 37.3 MCV 99 H MCH 32.4 MCHC 32.7 RDW 12.8 Plt Count 332 MPV 9.9 Immature Gran % 0.4 Neutrophils % 86.7 Lymphocytes % 7.2 Monocytes % 4.4 Eosinophils % 1.0 Basophils % 0.3 Nucleated RBC % 0.0 Absolute Neutrophils 16.07 H Absolute Lymphocytes 1.33 Absolute Monocytes 0.82 H Absolute Eosinophils 0.19 Absolute Basophils 0.06 VBG pH 7.41 VBG pCO2 42 VBG pO2 72 VBG HCO3 26 VBG Total CO2 24 VBG O2 Saturation 95 VBG Base Excess 2 Sodium 142 Potassium 4.1 Chloride 104 Carbon Dioxide 27.4 Anion Gap 10.6 BUN 9 Creatinine 0.8 Est GFR (CKD-EPI 2020) 79.71 Glucose 133 H Calcium 9.2 Total Bilirubin 0.4 AST 14 L ALT 25 Alkaline Phosphatase 92 Total Protein 7.4 Albumin 3.1 L COVID-19 Source Nasopharynx SARS-CoV-2 (PCR) Negative Influenza Type A (PCR) Negative Influenza Type B (PCR) Negative RSV (PCR) Negative Last Vital Signs Temp 36.6 C 09/11/24 15:49 Pulse 80 09/11/24 18:20 Resp 20 09/11/24 18:20 BP 146/62 H 09/11/24 18:16 Pulse Ox 93 09/11/24 18:20 Time Spent Time spent with Patient: >75 minutes Time was spent: preparing to see the patient(eg.review tests), obtaining and/or reviewing separately otained hiistory, ordering medications,tests, procedures, indepentently interpreting results, counseling the patient and care coordination
--- NOTE | 2024-09-11 22:09 | W.PC.ACHO ---
Registration Status: Primary Language: Preferred Language: ED Information & Data Chief Complaint RespSymp 09/11/24 17:16 Triage Note Patient complaining of SOB. 09/11/24 15:44 Unable to lay on left side. denies any trauma. Does have COPD Medical / Surgical History (Last Reviewed 03/12/22 @ 03:40 by Glenn Azar MD) Chest pain (Last Reviewed 03/12/22 @ 03:40 by Glenn Azar MD) History of laparoscopic appendectomy Hx of section Hx of hysterectomy Hx of colonoscopy (~04/2021) Most Recent Vital Signs Temperature 36.6 C 09/11/24 15:49 Pulse 80 09/11/24 18:20 Pulse 80 09/11/24 18:20 Respiratory Rate 20 09/11/24 18:20 Respiratory Effort Short of Breath 09/11/24 16:57 Respiratory Depth Deep 09/11/24 16:57 Blood Pressure 146/62 H 09/11/24 18:16 Blood Pressure Mean 92 09/11/24 18:16 Pulse Oximetry 93 09/11/24 18:20 Oxygen Delivery Method Room Air 09/11/24 16:54 Oxygen Flow Rate 0 09/11/24 16:54 Allergies oxycodone Allergy (Mild, Unverified 09/11/24 15:48) rash Precautions Isolation Standard precaution 09/11/24 15:49 Diagnostics 09/11/24 09/11/24 09/11/24 Range/Units 19:20 18:12 04:25 WBC 18.54 H (4.4-10.8) 10^3/uL RBC 3.76 L (3.93-5.22) 10^6/uL Hgb 12.2 (11.2-15.7) g/dL Hct 37.3 (36.0-46.0) % MCV 99 H (80-95) fL MCH 32.4 (27.0-33.0) pg MCHC 32.7 (32.0-36.0) % RDW 12.8 (11.7-14.6) % Plt Count 332 (130-400) 10^3/uL MPV 9.9 (8.0-11.0) fL Immature Gran % 0.4 % Neutrophils % 86.7 % Lymphocytes % 7.2 % Monocytes % 4.4 % Eosinophils % 1.0 % Basophils % 0.3 % Nucleated RBC % 0.0 (0.0-0.3) % Absolute Neutrophils 16.07 H (1.2-6.7) 10^3/uL Absolute Lymphocytes 1.33 (1.2-3.4) 10^3/uL Absolute Monocytes 0.82 H (0.1-0.8) 10^3/uL Absolute Eosinophils 0.19 (0.0-0.7) 10^3/uL Absolute Basophils 0.06 (0.0-0.2) 10^3/uL VBG pH 7.41 (7.31-7.41) VBG pCO2 42 (41-51) mmHg VBG pO2 72 mmHg VBG HCO3 26 (23-28) mmol/L VBG Total CO2 24 (24-29) mmol/L VBG O2 Saturation 95 % VBG Base Excess 2 (-2-3) mmol/L Sodium 142 (136-145) mmol/L Potassium 4.1 (3.5-5.1) mmol/L Chloride 104 (98-107) mmol/L Carbon Dioxide 27.4 (21.0-32.0) mmol/L Anion Gap 10.6 (3-11) mmol/L BUN 9 (7-18) mg/dL Creatinine 0.8 (0.55-1.02) mg/dL Est GFR (CKD-EPI 2020) 79.71 (mL/min/1.73m2) Glucose 133 H (74-106) mg/dL Calcium 9.2 (8.5-10.1) mg/dL Total Bilirubin 0.4 (0.2-1.0) mg/dL AST 14 L (15-37) U/L ALT 25 (14-59) U/L Alkaline Phosphatase 92 (46-116) U/L Total Protein 7.4 (6.4-8.2) g/dL Albumin 3.1 L (3.4-5.0) g/dL COVID-19 Source Nasopharynx SARS-CoV-2 (PCR) Negative (Negative) Influenza Type A (PCR) Negative (Negative) Influenza Type B (PCR) Negative (Negative) RSV (PCR) Negative (Negative) Intake and Output - 24 Hour Total 09/11/24 15:40 thru 09/11/24 15:44 Weight 70.307 kg Falls Risk Assessment History of Falls No History 09/11/24 16:59 Contributing Factors No Factors 09/11/24 16:59 Ambulatory Aids Independent 09/11/24 16:59 Tubes/Lines None 09/11/24 16:59 Gait Evaluation No gait disturbance 09/11/24 16:59 Fall Total Score 0 09/11/24 16:59 Level of Risk Standard/Low Risk 09/11/24 16:59 Problems (Last Reviewed 03/12/22 @ 03:40 by Glenn Azar MD) Borderline hyperglycemia (Chronic) Pneumonia (Acute) Acute hypoxic respiratory failure (Acute) COPD (chronic obstructive pulmonary disease) (Chronic) Tobacco use disorder (Chronic) v v v v v v v v v Sending and/or Receiving Nurses: Please use comment section below to note any information pertinent to the patient hand-off not included above. Information / Comments:no questions Report received from:Velia DREW
[2024-09-11] MEDS: methylPREDNISolone SUCC 125 MG VIAL 60 MG IVP (23:21)
[2024-09-11] MEDS: Albuterol/Ipratropium 3 ML UPD VIAL UPD (23:21)
[2024-09-11 23:25] LABS: Bilirubin Negative (Negative); Blood Small (Negative); Clarity Clear (Clear); Glucose Negative (Negative); Ketones Negative (Negative); Leukocyte Esterase Negative (Negative); Nitrite Negative (Negative); Specific Gravity 1.025 (1.005-1.025); Urobilinogen 0.2 mg/dL (Up to 0.2)
[2024-09-11 23:30] LABS: Bacteria Rare HPF (Negative); C & S Indicated? No; Casts Negative LPF (Negative); Crystals Negative HPF (Negative); Epithelial Cells Few HPF (Negative); Mucus Negative (Negative); WBC Negative HPF (0-5)
[2024-09-11 23:48] LABS: Magnesium 1.9 mg/dL (1.8-2.4); TSH (W/Ref FT4) 0.72 uIU/mL (0.36-3.74)
[2024-09-12 03:52] VITALS: BP 118/54; PULSE 73; RESP 20; TEMP 36.8; O2SAT 91
[2024-09-12] MEDS: Albuterol/Ipratropium 3 ML UPD VIAL UPD (05:20)
[2024-09-12 07:07] LABS: HGB 12.2 g/dL (11.2-15.7); MCH 32.2 pg (27.0-33.0); MCV 98 fL (80-95); Platelet Count 327 10^3/uL (130-400); RBC 3.79 10^6/uL (3.93-5.22); RDW 12.9 % (11.7-14.6); RDW-SD 46.5 fL; WBC 10.05 10^3/uL (4.4-10.8)
[2024-09-12 07:34] LABS: ALT 19 U/L (14-59); AST 12 U/L (15-37); Alkaline Phosphatase 84 U/L (46-116); Anion Gap 11.2 mmol/L (3-11); BUN 9 mg/dL (7-18); Bilirubin, Total 0.4 mg/dL (0.2-1.0); CO2 26.8 mmol/L (21.0-32.0); CREATININE 1.1 mg/dL (0.55-1.02); Calcium 9.4 mg/dL (8.5-10.1); Chloride 104 mmol/L (98-107); Estimated GFR 54.39 (mL/min/1.73m2); Glucose 194 mg/dL (74-106); Magnesium 2.1 mg/dL (1.8-2.4); Potassium 4.2 mmol/L (3.5-5.1); Sodium 142 mmol/L (136-145); Total Protein 7.6 g/dL (6.4-8.2)
[2024-09-12 07:35] VITALS: BP 138/53; PULSE 75; RESP 16; TEMP 36.5; O2SAT 90
[2024-09-12 07:57] VITALS: O2SAT 92
[2024-09-12] MEDS: Enoxaparin 40 MG/0.4 ML SYR SC (08:02)
[2024-09-12] MEDS: methylPREDNISolone SUCC 125 MG VIAL 60 MG IVP ×2 (08:03→15:59)
[2024-09-12] MEDS: Normal Saline Flush 10 ML SYR IVP ×2 (08:05→16:01)
--- NOTE | 2024-09-12 08:51 | PDOC.CMIN ---
Date of service: 09/12/24 Time of Service: 08:51 Care Management Initial Assmt Initial Assessment Reason for Hospitalization: Hypoxic respiratory failure Functional Status/Living Situation Patient Presentation: Shakira was discharged before was able to meet with her. Information obtained is collected by staff and per chart review. Town of Residence: [place] Employment Status: Retired Instrumental Activities of Daily Living (ADLs): Independent Medications Medication Management: No Issues/Barriers identified Advance Directives Advance Directives: Do you have an Advance Directive: N 11/03/20 15:42 AD On File at [facility]: N 11/03/20 15:42 Date Asked 09/11/24 09/11/24 16:45 AD Date Reviewed 09/11/24 09/11/24 21:20 COLST On File at [facility] No 08/29/24 17:33 COLST Date Scanned Code Status Resuscitation Status Full Code Portal Pt does not currently have a portal and education provided: Yes Insurance Coverage/Financial Issues Insurance: Medicare Care Team Visit Care Team Role Provider Type Kirstie Vee Primary Care Provider NURSE PRACTITIONER Malik Espinal, Emergency Provider [facility] STAFF PHYSICIAN Temo Draper Admit Provider NON-[facility] STAFF PHYSICIAN Attending Provider Discharge Anticipated Barriers to Discharge: None Identified Patient/Family Education Needs: Review discharge instructions, discuss Ask Me Three Transportation: Private vehicle Plan: Shakira is being discharged home with no new services. She will follow up with her community providers and plan of care and transport with family. Social Determinants of Health Screening Social Determinants of Health last assessed: 09/12/24 Will the Patient Participate in the Screening?: Yes Do you worry about having a steady place to live?: yes Problems where you live: no known problems In the past 12 months, have you had to go without electric, gas, oil or water in your home?: no Have you or anyone in your house had to go without enough food to eat?: no Has lack of transportation kept you from medical appointments or from doing things needed for daily living?: no Has anyone in your life made you feel unsafe or unsupported?: no How hard is it for you to pay for the very basics like food, housing, medical care, and heating? Would you say it is:: Not hard at all Do you want help finding or keeping work or a job?: I do not need or want help If for any reason you need help with day-to-day activities such as bathing, preparing meals, shopping, managing finances, etc., do you get the help you need?: I don?t need any help How often do you feel lonely or isolated from those around you?: Never Do you speak a language other than Belarusian at home?: No Health Related Social Needs Health related social needs: housing instability, housed, with risk of homelessness ([id number]) PFSH All Active Problems Pneumonia (Acute) Acute hypoxic respiratory failure (Acute) Borderline hyperglycemia (Chronic) Pneumonia (Acute) Acute hypoxic respiratory failure (Acute) Pain in left acromioclavicular joint (Acute) Tendinitis of long head of biceps brachii of left shoulder (Acute) Calcific tendinitis of left shoulder (Acute) Left rotator cuff tear (Acute 05/17/23) Acute respiratory failure with hypoxia and hypercapnia (Acute) COPD exacerbation (Acute) Hypoxemia (Acute) Tubular adenoma of colon (Acute) Anemia (Chronic) SOB (shortness of breath) (Acute) COPD (chronic obstructive pulmonary disease) (Chronic) Tobacco use disorder (Chronic) Asthma, intermittent (Acute) Chronic pain (Chronic) Headache (Acute) Fibrocystic breast disease (Acute) GERD (gastroesophageal reflux disease) (Chronic) Heart murmur (Acute) Screening for colon cancer (Acute) Medical History Chest pain Per pt. states she has not had chest pain in years, and it was nothing when she had it years ago. Surgical History History of laparoscopic appendectomy Hx of section Hx of hysterectomy Hx of colonoscopy (~04/2021) Social History Smoking/Tobacco Use Status: Current every day Tobacco Type: cigarettes Tobacco: How many years used: 45 Smoking risk assessment performed?: Yes Alcohol Intake: never Drug use: Never Substance use type: does not use Housing: house Do you feel safe at home: Yes Do you feel safe in your relationship?: Yes
[2024-09-12 10:59] VITALS: BP 120/60; PULSE 72; RESP 16; TEMP 36.4; O2SAT 96
--- NOTE | 2024-09-12 11:27 | DSE_ITS ---
Date of service: 09/12/24 Time of Service: 11:27 DS: Diagnosis Discharge Diagnosis (1) Acute hypoxic respiratory failure: Status: Acute (2) Pneumonia: Status: Acute (3) COPD (chronic obstructive pulmonary disease): Status: Chronic (4) Tobacco use disorder: Status: Chronic (5) Borderline hyperglycemia: Status: Chronic Discharge Plan Disposition Patient Disposition: Home Condition: Improving Discharge Details Reason For Visit: Hypoxic Respiratory Failrue,COPD Exacerbation, Pne Admit Date/Time: 09/11/24 21:08 Admit Provider: Temo Draper Attending Provider: Temo Draper Primary Care Provider: Kirstie Vee Hospital Course Hospital Course: 68-year-old female with a past medical history of COPD not on oxygen, regular tobacco use, GERD, who does have an albuterol inhaler at home, presented to the ED on 09/11/24 for evaluation of cough and shortness of breath X 24hours . She reported d a mild chronic cough with thick productive sputum, w/o fever or chills, numbness or tingling. She denied any significant chest pain or discomfort, pleuritic chest pain or hemoptysis. She had been using her inhalers but it had not been helping. Workup in the ED determined that the patient had a right-sided pneumonia. WBC was 18, creatinine at 2.8 from baseline, otherwise blood work was unremarkable . In the ED the patient received oral Levaquin, prednisone, breathing treatments,/nebulizers but her saturation remained labile dropping to 88% and improving on 2 L of oxygen % . Respiratory viral panel was negative. The patient was admitted by the hospitalist to the medical surgical floor for evaluation management of right-sided pneumonia. During the stay initially the patient received IV methylprednisolone which was later on transition to oral prednisone. IV levofloxacin and DuoNebs were administered. Leukocytosis resolved but creatinine bumped to 1.1 which might up in 2 to prerenal MANUEL as it was corrected back to 1.0 status post IV fluid bolus. The patient longer required oxygen supplementation and was ambulatory on room air in the room without respiratory distress. The patient will be discharged home on Combivent, oral levofloxacin and prednisone burst. Will follow-up the patient will have to follow-up with her primary care practitioner within 7 days of discharge. Discussed with Dr. Hernandez Home Meds and New Rx's Prescriptions: New prednisone 20 mg tablet 40 mg PO DAILY Qty: 8 0RF Combivent Respimat 20-100 mcg/actuation mist 1 puff inhalation QID Qty: 4 0RF Rx Instructions: space evenly during waking hours levofloxacin 750 mg tablet 750 mg PO DAILY Qty: 3 0RF nicotine 14 mg/24 hr patch 24 hour 1 patch transdermal Q24H Qty: 28 0RF Continued Qvar RediHaler 80 mcg/actuation HFA aerosol breath activated 2 inh inhalation BID Inhaler, Assist Devices [Pocket Chamber] 1 ea miscellaneous DIRECTED Qty: 0 0RF fluticasone propion-salmeterol [Advair HFA] 115-21 mcg/actuation HFA aerosol inhaler 1 inh inhalation BID Incruse Ellipta 62.5 mcg/actuation blister with device 1 inh inhalation DAILY albuterol sulfate 90 mcg/actuation HFA aerosol inhaler 2 puff inhalation Q6H PRNQty: 8.5 3RF albuterol sulfate 2.5 mg /3 mL (0.083 %) solution for nebulization 2.5 mg inhalation QID PRNQty: 90 3RF Changed acetaminophen [Acetaminophen Extra Strength] 500 MG tablet 1,000 mg PO Q8H PRN (Reason: prn) Qty: 0 0RF Discharge Instructions Referrals: Kirstie Vee [Primary Care Provider] - (F/u within 7 days of discharge ) Activity:: Activity as Tolerated Equipment/Supplies:: No Equipment Needed Diet:: As Tolerated Discharge Orders Discharge Orders: Discharge Order (Routine); Ordered 09/12/24 Ordered By: Susanna Snowden DS: Summary Time Spent with Patient providing and/or coordinating discharge services: Greater than 30 minutes Status at Discharge Functional status at discharge: independent ambulation Overall status at discharge: patient is progressing back to baseline Mental Status: mental status grossly normal Speech and Movement: speech and movement normal Mood: congruent mood Affect: normal affect Quality:SDOH Health Related Social Needs: Health related social needs housing instability, house d, with risk of homelessness (Z59.811) Exam Narrative Exam Narrative: 68 female appearing older than stated age with no acute distress, alert oriented x 3, no neurodeficit, respiration unlabored diminished bibasilar breath sounds, heart is regular, S1-S2 no murmur, abdomen is nondistended soft nontender, no CVA tenderness, moves all 4 extremities Psych Mental Status: mental status grossly normal Speech and Movement: speech and movement normal Mood: congruent mood Affect: normal affect DS: Data Vitals/I&O Vitals and I&O: Vital Signs Temperature 36.4 C L 09/12/24 10:59 Temperature Source Temporal Artery Scan 09/12/24 10:59 Pulse 72 09/12/24 10:59 Pulse 77 09/11/24 22:02 Respiratory Rate 16 09/12/24 10:59 Respiratory Effort Normal 09/11/24 22:20 Respiratory Depth Normal 09/11/24 22:20 Respiratory Pattern Normal 09/11/24 22:20 Blood Pressure 120/60 09/12/24 10:59 Blood Pressure Mean 86 09/11/24 22:02 Pulse Oximetry 96 09/12/24 10:59 Oxygen Delivery Method Room Air 09/12/24 10:59 Oxygen Flow Rate 0 09/12/24 10:59 Pain Level 0 09/12/24 10:59 Intake & Output 09/11/24 09/11/24 09/12/24 11:59 23:59 11:59 Weight 70.45 kg Other: Urine Color Yellow Yellow Urine Appearance Clear Clear Comment ua obtained. Stool Size Moderate Stool Characteristics Formed Brown Data Completed and Pending Labs on day of discharge: Labs from last 24 hours 09/12/24 09/11/24 09/11/24 06:30 22:25 19:20 WBC 10.05 RBC 3.79 L Hgb 12.2 Hct 37.0 MCV 98 H MCH 32.2 MCHC 33.0 RDW 12.9 Plt Count 327 MPV 10.0 Immature Gran % Neutrophils % Lymphocytes % Monocytes % Eosinophils % Basophils % Nucleated RBC % Absolute Neutrophils Absolute Lymphocytes Absolute Monocytes Absolute Eosinophils Absolute Basophils VBG pH 7.41 VBG pCO2 42 VBG pO2 72 VBG HCO3 26 VBG Total CO2 24 VBG O2 Saturation 95 VBG Base Excess 2 Sodium 142 Potassium 4.2 Chloride 104 Carbon Dioxide 26.8 Anion Gap 11.2 H BUN 9 Creatinine 1.1 H Est GFR (CKD-EPI 2020) 54.39 Glucose 194 H Calcium 9.4 Magnesium 2.1 1.9 Total Bilirubin 0.4 AST 12 L ALT 19 Alkaline Phosphatase 84 Total Protein 7.6 Albumin 3.0 L TSH 0.72 Urine Color Yellow Urine Clarity Clear Urine pH 6.0 Ur Specific Neptune 1.025 Urine Protein Negative Urine Ketones Negative Urine Blood Small H Urine Nitrite Negative Urine Bilirubin Negative Urine Urobilinogen 0.2 Ur Leukocyte Esterase Negative Urine RBC 5-10 H Urine WBC Negative Ur Epithelial Cells Few Urine Crystals Negative Urine Bacteria Rare Urine Casts Negative Urine Mucus Negative Ur Culture Indicated? No Urine Glucose Negative COVID-19 Source SARS-CoV-2 (PCR) Influenza Type A (PCR) Influenza Type B (PCR) RSV (PCR) 09/11/24 09/11/24 18:12 04:25 WBC 18.54 H RBC 3.76 L Hgb 12.2 Hct 37.3 MCV 99 H MCH 32.4 MCHC 32.7 RDW 12.8 Plt Count 332 MPV 9.9 Immature Gran % 0.4 Neutrophils % 86.7 Lymphocytes % 7.2 Monocytes % 4.4 Eosinophils % 1.0 Basophils % 0.3 Nucleated RBC % 0.0 Absolute Neutrophils 16.07 H Absolute Lymphocytes 1.33 Absolute Monocytes 0.82 H Absolute Eosinophils 0.19 Absolute Basophils 0.06 VBG pH VBG pCO2 VBG pO2 VBG HCO3 VBG Total CO2 VBG O2 Saturation VBG Base Excess Sodium 142 Potassium 4.1 Chloride 104 Carbon Dioxide 27.4 Anion Gap 10.6 BUN 9 Creatinine 0.8 Est GFR (CKD-EPI 2020) 79.71 Glucose 133 H Calcium 9.2 Magnesium Total Bilirubin 0.4 AST 14 L ALT 25 Alkaline Phosphatase 92 Total Protein 7.4 Albumin 3.1 L TSH Urine Color Urine Clarity Urine pH Ur Specific Neptune Urine Protein Urine Ketones Urine Blood Urine Nitrite Urine Bilirubin Urine Urobilinogen Ur Leukocyte Esterase Urine RBC Urine WBC Ur Epithelial Cells Urine Crystals Urine Bacteria Urine Casts Urine Mucus Ur Culture Indicated? Urine Glucose COVID-19 Source Nasopharynx SARS-CoV-2 (PCR) Negative Influenza Type A (PCR) Negative Influenza Type B (PCR) Negative RSV (PCR) Negative PFSH All Active Problems Pneumonia (Acute) Acute hypoxic respiratory failure (Acute) Borderline hyperglycemia (Chronic) Pneumonia (Acute) Acute hypoxic respiratory failure (Acute) Pain in left acromioclavicular joint (Acute) Tendinitis of long head of biceps brachii of left shoulder (Acute) Calcific tendinitis of left shoulder (Acute) Left rotator cuff tear (Acute 05/17/23) Acute respiratory failure with hypoxia and hypercapnia (Acute) COPD exacerbation (Acute) Hypoxemia (Acute) Tubular adenoma of colon (Acute) Anemia (Chronic) SOB (shortness of breath) (Acute) COPD (chronic obstructive pulmonary disease) (Chronic) Tobacco use disorder (Chronic) Asthma, intermittent (Acute) Chronic pain (Chronic) Headache (Acute) Fibrocystic breast disease (Acute) GERD (gastroesophageal reflux disease) (Chronic) Heart murmur (Acute) Screening for colon cancer (Acute) Medical History Chest pain Per pt. states she has not had chest pain in years, and it was nothing when she had it years ago. Surgical History History of laparoscopic appendectomy Hx of section Hx of hysterectomy Hx of colonoscopy (~04/2021) Social History Smoking/Tobacco Use Status: Current every day Tobacco Type: cigarettes Tobacco: How many years used: 45 Smoking risk assessment performed?: Yes Alcohol Intake: never Drug use: Never Substance use type: does not use Housing: house Do you feel safe at home: Yes Do you feel safe in your relationship?: Yes Time Spent with Patient Time Spent with Patient: 70-84 minutes4 Time was spent: preparing to see the patient(eg.review tests), obtaining and/or reviewing separately otained hiistory, ordering medications,tests, procedures, referring, communicating with other health neonatal intensive care unit nurse, indepentently interpreting results, counseling the patient and care coordination
[2024-09-12] MEDS: Lactated Ringers 500 ML IV (11:48)
--- NOTE | 2024-09-12 12:36 | CMDISCH_ITS ---
Date of service: 09/12/24 Time of Service: 12:36 LACE Index Scoring Tool Questions: Length of Stay (in days): 1 Was the patient admitted via the E.D.?: Yes Comorbidities: Chronic Pulmonary Disease E.D. Visits: 2 Answers: Total Score: 8 Risk of Readmission: Low Risk Care Management Discharge Plan Reason for Hospitalization: Hypoxic Respiratory Failure Discharge Plan: Shakira is discharged home via private vehicle with family. Pt will follow up with her PCP and discharge plan of care as directed. No new services are ordered prior to discharge. Patient/Family Education Needs: Review discharge instructions, limitations and plan to follow up after discharge. Discuss ask me three. SDOH Health Related Social Needs: Health related social needs housing instability, house d, with risk of homelessness (Z59.811)
[2024-09-12 15:12] LABS: BUN 13 mg/dL (7-18); Calcium 9.5 mg/dL (8.5-10.1); Chloride 104 mmol/L (98-107); Estimated GFR 60.98 (mL/min/1.73m2); Glucose 179 mg/dL (74-106); Potassium 4.5 mmol/L (3.5-5.1); Sodium 141 mmol/L (136-145)
[2024-09-12 15:23] VITALS: BP 119/59; PULSE 69; RESP 16; TEMP 36.8; O2SAT 92
== END 2024-09-12 18:02 | disposition home or self-care (01) | DRG 193 ==
LOC: ER 21:40 → MS 22:23
PROVIDERS: Admitting Provider Family Medicine; Emergency Provider Student in an Organized Health Care Education/Training Program; PCP Nurse Practitioner Family; Responsible Provider Nurse Practitioner Acute Care; Visit Provider Family Medicine
DX: J18.9 Pneumonia, unspecified organism (principal); J96.01 Acute respiratory failure with hypoxia; J44.1 Chronic obstructive pulmonary disease with (acute) exacerbation; F17.210 Nicotine dependence, cigarettes, uncomplicated; D72.829 Elevated white blood cell count, unspecified; D64.9 Anemia, unspecified; G89.29 Other chronic pain; K21.9 Gastro-esophageal reflux disease without esophagitis; Z79.899 Other long term (current) drug therapy
CPT/HCPCS: 00123; 36415; 80048; 80053; 82805; 85027; 87637; 93005; 94640; 99291; J1650; 71045; 81003; 81015; 83735; 84443; 85025; 93010; 94760; 99223; 99239; J2919; J7512; J7620

== ENCOUNTER 2024-11-26 07:49 | Inpatient (IN) | payer MEDICARE, SELFPAY ==
[2024-11-26] VITALS (46 sets, daily range): BP systolic 114–177; BP diastolic 36–109; PULSE 61–88; RESP 10–23; TEMP 36.6–36.9; O2SAT 88–100; BMI 29.7
--- NOTE | 2024-11-26 08:30 | W.ED.GENAD ---
Discharge Plan Disposition Patient Disposition: Admit to [facility] Condition: Good Discharge Details Chief Complaint: Abd Prob Clinical Impression: Cholecystitis Admit Date/Time: 11/26/24 10:03 Admit Provider: Bear Rhodes Attending Provider: Bear Rhodes Primary Care Provider: Kirstie Vee ED Provider: Faith Donaldson Discharge Data Discharge Date/Time-TO BE ENTERED AT DEPARTURE: 11/26/24 11:32 HPI General Date/Time Provider Initiated Documentation: 11/26/24 08:02. Limitations to Documentation: no limitations. Information obtained by: patient, family (granddaughter) and RN notes reviewed. History of Present Illness 69 year old F presents to the emergency department with the chief complaint of diffuse, severe abdominal pain, described as severe, Quality is described as stabbing, and is localized to the abdomen. Patient reports radiation to back. Patient started experiencing this day(s) (3) and it has been constant. No relieving factors improve symptom(s), Eating worsens symptoms and Movement worsens symptoms . Patient notes fever/chills, loss of appetite, malaise and nausea/vomiting (nausea, no vomiting); denies chest pain, cough, diaphoresis and shortness of breath. Patient did receive the following treatments prior to arrival, none Related Data Home Medications ?Medication ?Instructions ?Recorded ?Confirmed Inhaler, Assist Devices [Pocket 1 ea miscellaneous DIRECTED ##0 03/13/22 11/26/24 Chamber] albuterol sulfate 2.5 mg/3 mL 2.5 mg (3 mL) inhalation QID PRN 08/29/24 11/26/24 (0.083 %) solution for nebulization #90 mL albuterol sulfate 90 mcg/actuation 2 puff inhalation Q6H PRN #8.5 08/29/24 11/26/24 aerosol inhaler grams fluticasone propionate 115 1 inh inhalation BID 08/29/24 11/26/24 mcg-salmeterol 21 mcg/actuation HFA inhaler (Advair HFA) umeclidinium 62.5 mcg/actuation 1 inh inhalation DAILY 08/29/24 11/26/24 blister powder for inhalation (Incruse Ellipta) acetaminophen 500 mg tablet 1,000 mg (2 x 500 mg) PO Q8H PRN 09/12/24 11/26/24 (Acetaminophen Extra Strength) prn #0 tabs ipratropium 20 mcg-albuterol 100 1 puff inhalation QID #4 grams 09/12/24 11/26/24 mcg/actuation mist for inhalation (Combivent Respimat) Previous Rx's ?Medication ?Instructions ?Recorded Inhaler, Assist Devices [Pocket 1 ea miscellaneous DIRECTED ##0 03/13/22 Chamber] albuterol sulfate 2.5 mg/3 mL 2.5 mg (3 mL) inhalation QID PRN 08/29/24 (0.083 %) solution for nebulization #90 mL albuterol sulfate 90 mcg/actuation 2 puff inhalation Q6H PRN #8.5 08/29/24 aerosol inhaler grams acetaminophen 500 mg tablet 1,000 mg (2 x 500 mg) PO Q8H PRN 09/12/24 (Acetaminophen Extra Strength) prn #0 tabs ipratropium 20 mcg-albuterol 100 1 puff inhalation QID #4 grams 09/12/24 mcg/actuation mist for inhalation (Combivent Respimat) Allergies Allergy/AdvReac Type Severity Reaction Status Date / Time oxycodone Allergy Mild rash Unverified 11/26/24 08:02 General Stated Complaint: Abd Prob AMA: 3 Review of Systems Constitutional Constitutional: Reports as per HPI, Denies chills, Denies fever(s) and Denies headache(s) ENT Ears, Nose, Mouth, and Throat: Denies headache(s) Cardiovascular Cardiovascular: Reports as per HPI, Denies chest pain and Denies dyspnea Respiratory Respiratory: Reports as per HPI, Denies cough and Denies dyspnea Gastrointestinal Gastrointestinal: Reports as per HPI Musculoskeletal Musculoskeletal: Reports as per HPI and Denies back pain Integumentary/Breasts Skin/Breast: Reports as per HPI and Denies rash Neurologic Neurologic: Reports as per HPI and Denies headache(s) Exam Const General: cooperative, healthy appearing, uncomfortable, no acute distress and well developed Nutritional Appearance: average body habitus and well nourished Orientation: alert and awake HENMT Head: normal to inspection Mouth: moist mucous membranes Resp Effort & Inspection: normal respiratory effort, able to speak in complete sentences and no respiratory distress Auscultation: no rales, no rhonchi and wheezes scattered wheezes Cardio Rate: regular rate Rhythm: regular rhythm Heart Sounds: S1 normal and S2 normal GI Inspection: normal to inspection Palpation: soft, no hepatosplenomegaly, guarding, no hernias, no masses, no pulsatile masses, not rigid and tender (diffuse) Milligan's sign positive and with rebound tenderness; not at McBurney's point Percussion: normal to percussion Auscultation: normal bowel sounds Back/Spine/Pelvis Back: no CVA tenderness Skin General skin exam: no rashes or lesions noted Trauma: no lacerations or abrasions Neuro General: patient alert and patient awake Cognition: normal cognition Speech: speech normal Gait: normal gait Course Vital Signs Vital signs: Vital Signs Temperature 36.8 C 11/26/24 07:59 Pulse 88 11/26/24 07:59 Respiratory Rate 18 11/26/24 07:59 Blood Pressure 168/67 H 11/26/24 07:59 Pulse Oximetry 95 11/26/24 07:59 Temperature 36.8 C 11/26/24 08:08 Temperature Source Oral 11/26/24 08:08 Pulse 88 11/26/24 08:08 Respiratory Rate 18 11/26/24 08:08 Blood Pressure 168/67 H 11/26/24 08:08 Blood Pressure Position Sitting 11/26/24 08:08 Pulse Oximetry 95 11/26/24 08:08 Oxygen Delivery Method Room Air 11/26/24 08:08 Oxygen Flow Rate 0 11/26/24 08:08 Pain Level 10 11/26/24 08:08 Comment Pain comes and goes in waves 11/26/24 08:08 Medical Decision Making Patient is a pleasant 69-year-old female, accompanied by her granddaughter, past medical history significant for active smoking, COPD, multiple admissions for acute hypoxic respiratory failure, presenting with chief complaint of abdominal pain that began 3 days ago. She reports that the pain began fairly suddenly. States that she ate oatmeal prior to the onset of pain. Pain has been fairly consistent but severity has waxed and waned since then. She has not had any appetite and does not have any p.o. intake. She denies any change in her bowel or bladder habits. Last bowel movement was yesterday which is nonbloody. She never had pain like this historically. Surgical history significant for hysterectomy, , appendectomy. She is due for colonoscopy in 2 years. States the pain, while very diffuse can radiate into the back. She denies any chest pain or shortness of breath. She did not use her inhalers this morning. No exertional component or movement component to this discomfort. On exam, patient appears uncomfortable. She is hemodynamically stable. When any type of movement seems to increase her pain in her abdomen and she is holding this frequently. She does have some expiratory wheezing but feels that this is her baseline declines any pulmonary intervention at this time, her oxygen is 95% on room air. She is breathing unlabored. Normal cardiac exam. She is 2+ distal pulses in all of her extremities. She is diffusely tender in the abdomen, no focal area of discomfort. I do not appreciate any pulsatile mass and, again, 2+ distal pulses in BLE. US completed at bedside, limited d/t bowel gas. Seh does state she is passing small amount of flatus, had BM yesterday, denies feeling bloated. She is primarily tender RUQ with US, + gall stones. Difficulty visualizing enture aorta d/t her discomfort and bowel gas. No free fluid appreciated elsewhere. Primary concern, with suddent onset after eating and + [place], stones on US, is for acute cholecystitis. However, considered AAA wtih her diffuse pain and pain that radiates to the back. Will obrtain CTA, labs. Will give morphine for pain. CT reviewed by radiologist. No acute abnormality in the chest but they do note acute cholecystitis. Gallbladder wall markedly thickened, intra and extrahepatic biliary distention with no gallstones or common bile duct stones identified I discussed these findings with the patient. Consulted with surgical team who advised patient will need a cholecystectomy. Requested IV Zosyn which was started here. Patient is been having some slight pain relief with IV morphine. Will augment this with IV Dilaudid. Patient is receiving IV fluid has been n.p.o. since yesterday. She will remain NPO. Plan is for admission and surgical intervention later this afternoon. I discussed this plan with the patient and her granddaughter and all their questions and concerns were addressed. They are in agreement this plan. Quality:SDOH Health Related Social Needs: No Data to Display PFSH All Active Problems (Updated 11/26/24 @ 15:53 by Faith Piburn, PA) Cholecystitis (Acute) Acute hypoxic respiratory failure (Acute) Borderline hyperglycemia (Chronic) Pain in left acromioclavicular joint (Acute) Tendinitis of long head of biceps brachii of left shoulder (Acute) Calcific tendinitis of left shoulder (Acute) Left rotator cuff tear (Acute 05/17/23) Acute respiratory failure with hypoxia and hypercapnia (Acute) COPD exacerbation (Acute) Hypoxemia (Acute) Tubular adenoma of colon (Acute) Anemia (Chronic) SOB (shortness of breath) (Acute) COPD (chronic obstructive pulmonary disease) (Chronic) Tobacco use disorder (Chronic) Asthma, intermittent (Acute) Chronic pain (Chronic) Headache (Acute) Fibrocystic breast disease (Acute) GERD (gastroesophageal reflux disease) (Chronic) Heart murmur (Acute) Screening for colon cancer (Acute) Medical History Chest pain Per pt. states she has not had chest pain in years, and it was nothing when she had it years ago. Surgical History History of laparoscopic appendectomy Hx of section Hx of hysterectomy Hx of colonoscopy (~04/2021) Social History Smoking/Tobacco Use Status: Former Tobacco Use tobacco type: cigarettes Quit Date: 09/09/21 Tobacco: How many years used: 45 Smoking risk assessment performed?: Yes Alcohol Intake: never Drug use: Never Substance use type: does not use Housing: apartment Do you feel safe at home: Yes Do you feel safe in your relationship?: Yes
--- NOTE | 2024-11-26 08:52 | DI.CT_ITS ---
Exam(s) CT THORAX ABD/PEL CTA EXAM: CT THORAX ABD/PEL CTA CLINICAL HISTORY: abdominal pain with rad to back. TECHNIQUE: Imaging Protocol: Axial CT angiography was performed with multi-slice acquisition and m ulti-planar and/or 3D reconstructions. CONTRAST MATERIAL: Intravenous: Omnipaque 350 Contrast volume:80 mL Oral: / no COMPARISON: CT CT CHEST LUNG CANCER SCREEN from 12/11/2023 CR XR PORTABLE CHEST AP from 09/11/2024 FINDINGS: CHEST: Pulmonary Arteries: No evidence of filling defect to suggest pulmonary emboli. Tracheobronchial tree: Patent where visualized. Mediastinum and Karla: No dominant adenopathy or fluid collection. Pulmonary parenchyma: Mild emphysematous changes. There is see at no consolidation or dominant measu rable mass. No architectural distortion. Pleura: No effusion or pneumothorax. Heart: The heart is not dilated. No coronary artery calcifications are seen. Aorta: Thoracic motion at the level of the aortic root. Ascending aorta measures 3 cm. Descending a uriel measures 2.3 cm. No significant atherosclerotic changes. Bones: Unremarkable for age. Tubes, Catheters, and Lines: None ABDOMEN AND PELVIS: Abdomen: Celiac axis/mesenteric arteries: No evidence of occlusion or significant stenosis. Renal Arteries: No evidence of occlusion or significant stenosis. There is a single renal artery per fusing each kidney. Aorta: No evidence of occlusion or significant stenosis. No aneurysm or dissection. Mild atheros clerotic changes. Pelvis: Iliac Arteries: No evidence of occlusion or significant stenosis. [id number] atherosclerotic changes. Common Femoral Arteries: No evidence of occlusion or significant stenosis. ABDOMEN: Liver: Normal density. No measurable mass. Portal, Superior Mesenteric, and Splenic Veins: Unremarkable. Gallbladder and Biliary Tract: Of the gallbladder is markedly distended and shows wall thickening. T here is pericholecystic fluid. The common bile duct and intrahepatic ducts also appear dilated. No visible calcified stones. No stone visible in distal common bile duct. Pancreas: Normal density, no abnormal calcifications or inflammatory process. Spleen: Normal. Adrenals: No masses seen. Kidneys: Normal size, contour and axis. No radiodense stones or obstructive uropathy. No masses seen. Bowel: No obstruction or bowel wall thickening. Peritoneal Cavity: There is a moderate quantity of ascites in the pelvis. Lymph Nodes: Within normal limits. Bones: Unremarkable. Soft Tissues: Unremarkable. PELVIS: Bladder: Symmetric distention, no gross wall thickening. Reproductive Organs: Hysterectomy. Lymph Nodes: Within normal limits. Bones: Unremarkable for age. IMPRESSION: No acute abnormality in the chest. Findings consistent with acute cholecystitis. The gallbladder is markedly distended and shows a thic kened wall. There is also intra and extrahepatic biliary dilatation. No gallstones or common duct s tone is identified. Findings called to Faith Donaldson, ER provider. RADIATION DOSE DELIVERED: 613.92mGy.cm Total DLP DATA REPOSITORY: All CT scans at this facility are submitted to the National Radiology Data Registry (NRDR) Dose Index Registry (DIR) with the [employer] (A[employer]). RADIATION OPTIMIZATION: All CT scans at this facility use at least one of these dose optimization te chniques: automated exposure control; mA and/or kV adjustment per patient size (includes targeted exa ms where dose is matched to clinical indication); or iterative reconstruction.
[2024-11-26] MEDS: Normal Saline - Diluent 50 ML VIAL IJ (09:10)
[2024-11-26] MEDS: Omnipaque 350 MG/ML 100 ML BTL IJ (09:11)
[2024-11-26 09:19] LABS: Abs Immature Grans 0.08 10^3/uL (0.0-0.06); Absolute Lymphocyte Count 1.24 10^3/uL (1.2-3.4); Basophils % 0.1 %; Eosinophils % 0.1 %; HCT 43.2 % (36.0-46.0); HGB 14.3 g/dL (11.2-15.7); Immature Grans % 0.4 %; Lymphocytes % 5.5 %; MCH 31.8 pg (27.0-33.0); MCHC 33.1 % (32.0-36.0); MCV 96 fL (80-95); MPV 10.6 fL (8.0-11.0); Monocytes % 6.7 %; Neutrophils % 87.2 %; Platelet Count 303 10^3/uL (130-400); RDW 12.4 % (11.7-14.6); RDW-SD 43.7 fL; WBC 22.53 10^3/uL (4.4-10.8)
[2024-11-26 09:23] LABS: Absolute Basophil Count 0.02 10^3/uL (0.0-0.2); Absolute Eosinophil Count 0.02 10^3/uL (0.0-0.7); Absolute Monocyte Count 1.51 10^3/uL (0.1-0.8); Absolute Neutrophil Count 19.65 10^3/uL (1.2-6.7)
[2024-11-26 09:38] LABS: ALT 104 U/L (14-59); AST 49 U/L (15-37); Albumin 3.5 g/dL (3.4-5.0); Alkaline Phosphatase 107 U/L (46-116); BUN 14 mg/dL (7-18); Bilirubin, Total 1.3 mg/dL (0.2-1.0); CREATININE 0.9 mg/dL (0.55-1.02); Calcium 9.6 mg/dL (8.5-10.1); Chloride 101 mmol/L (98-107); Estimated GFR 68.77 (mL/min/1.73m2); Glucose 132 mg/dL (74-106); Lipase 17 U/L (<78); Magnesium 1.7 mg/dL (1.8-2.4); Sodium 138 mmol/L (136-145); Total Protein 7.9 g/dL (6.4-8.2); Troponin I 4 ng/L (<or=51)
[2024-11-26] MEDS: MORPHine 4 MG/ML SYR IVP (09:40)
[2024-11-26 09:48] LABS: Diff Comment Diff Reviewed; RBC Morphology Normal
--- NOTE | 2024-11-26 09:49 | W.PM.HP.N ---
Date of service: 11/26/24 Time of Service: 09:49 Assessment and Plan Assessment and plan (1) Cholecystitis: Status: Acute Assessment and plan: With acute onset of right upper quadrant pain, tenderness, and the changes seen on the CT scan, I agree that this is all consistent with severe acute cholecystitis. I think she would benefit from urgent cholecystectomy. She is already been started on broad-spectrum antibiotics, we will work to schedule time in the operating room soon as possible this afternoon. History of Present Illness History of Present Illness Chief Complaint: Abdominal pain Narrative: Haroon is 6 years old. She comes to the emergency department with 3 days of increasing abdominal pain. The pain is sharp, stabbing, and radiates slightly into the right side of her back. She has had some nausea and loss of appetite associated with this. She has not had any vomiting today. In the emergency department, she was found to have a leukocytosis, and mild elevation of her liver function test. She underwent a CT scan that demonstrated massively distended gallbladder with gallbladder wall thickening consistent with acute cholecystitis. She was started on broad-spectrum antibiotics. Past surgical history includes an open appendectomy as a child. She is also had a hysterectomy. Past medical history includes severe COPD. Although she is not dependent upon oxygen, she does require multiple inhalers. Review of Systems Constitutional Constitutional: Reports fatigue, Reports fever(s), Reports lethargy and Reports poor appetite Eyes Eyes: Reports system reviewed and no additional complaints, except as documented ENT Ears, Nose, Mouth, and Throat: Reports system reviewed and no additional complaints, except as documented Cardiovascular Cardiovascular: Denies chest pain and Reports dyspnea on exertion Respiratory Respiratory: Denies chest congestion, Reports cough and Reports dyspnea on exertion Gastrointestinal Gastrointestinal: Reports abdominal pain, Reports nausea and Denies vomiting Genitourinary Genitourinary: Reports system reviewed and no additional complaints, except as documented Musculoskeletal Musculoskeletal: Reports back pain Neurologic Neurologic: Reports system reviewed and no additional complaints, except as documented Psychiatric Psychiatric: Reports system reviewed and no additional complaints, except as documented Endocrine Endocrine: Reports fatigue Hematologic/Lymphatic Hematologic/Lymphatic: Denies easy bleeding and Denies easy bruising PFSH All Active Problems (Updated 11/26/24 @ 15:53 by MARK Parker) Cholecystitis (Acute) Acute hypoxic respiratory failure (Acute) Borderline hyperglycemia (Chronic) Pain in left acromioclavicular joint (Acute) Tendinitis of long head of biceps brachii of left shoulder (Acute) Calcific tendinitis of left shoulder (Acute) Left rotator cuff tear (Acute 05/17/23) Acute respiratory failure with hypoxia and hypercapnia (Acute) COPD exacerbation (Acute) Hypoxemia (Acute) Tubular adenoma of colon (Acute) Anemia (Chronic) SOB (shortness of breath) (Acute) COPD (chronic obstructive pulmonary disease) (Chronic) Tobacco use disorder (Chronic) Asthma, intermittent (Acute) Chronic pain (Chronic) Headache (Acute) Fibrocystic breast disease (Acute) GERD (gastroesophageal reflux disease) (Chronic) Heart murmur (Acute) Screening for colon cancer (Acute) Medical History Chest pain Per pt. states she has not had chest pain in years, and it was nothing when she had it years ago. Surgical History History of laparoscopic appendectomy Hx of section Hx of hysterectomy Hx of colonoscopy (~04/2021) Social History Smoking/Tobacco Use Status: Former Tobacco Use tobacco type: cigarettes Quit Date: 09/09/21 Tobacco: How many years used: 45 Smoking risk assessment performed?: Yes Alcohol Intake: never Drug use: Never Substance use type: does not use Housing: apartment Do you feel safe at home: Yes Do you feel safe in your relationship?: Yes Meds Allergies and Home Medications Allergies Allergy/AdvReac Type Severity Reaction Status Date / Time oxycodone Allergy Mild rash Unverified 11/26/24 08:02 Home Medications ?Medication ?Instructions ?Recorded ?Confirmed ?Type Inhaler, Assist Devices [Pocket 1 ea miscellaneous DIRECTED ##0 03/13/22 11/26/24 Rx Chamber] albuterol sulfate 2.5 mg/3 mL 2.5 mg (3 mL) inhalation QID PRN 08/29/24 11/26/24 Rx (0.083 %) solution for nebulization #90 mL albuterol sulfate 90 mcg/actuation 2 puff inhalation Q6H PRN #8.5 08/29/24 11/26/24 Rx aerosol inhaler grams fluticasone propionate 115 1 inh inhalation BID 08/29/24 11/26/24 History mcg-salmeterol 21 mcg/actuation HFA inhaler (Advair HFA) umeclidinium 62.5 mcg/actuation 1 inh inhalation DAILY 08/29/24 11/26/24 History blister powder for inhalation (Incruse Ellipta) acetaminophen 500 mg tablet 1,000 mg (2 x 500 mg) PO Q8H PRN 09/12/24 11/26/24 Rx (Acetaminophen Extra Strength) prn #0 tabs ipratropium 20 mcg-albuterol 100 1 puff inhalation QID #4 grams 09/12/24 11/26/24 Rx mcg/actuation mist for inhalation (Combivent Respimat) Exam Const General: cooperative Nutritional Appearance: obese Orientation: alert, awake and oriented x3 HENMT Head: normal to inspection Eyes General: appearance normal, both eyes and all related structures Neck Neck: normal visual inspection, full ROM and no lymphadenopathy Resp Effort & Inspection: audible wheezes and cough Cardio Rate: regular rate Rhythm: regular rhythm Heart Sounds: S1 normal and S2 normal GI Palpation: soft, mass (Right upper quadrant) and tender (Right upper quadrant) Auscultation: hypoactive bowel sounds Results Labs 11/26/24 09:05 11/26/24 09:05 Labs: Laboratory Results - last 24 hr 11/26/24 09:05 WBC 22.53 H RBC 4.50 Hgb 14.3 Hct 43.2 MCV 96 H MCH 31.8 MCHC 33.1 RDW 12.4 Plt Count 303 MPV 10.6 Immature Gran % 0.4 Neutrophils % 87.2 Lymphocytes % 5.5 Monocytes % 6.7 Eosinophils % 0.1 Basophils % 0.1 Nucleated RBC % 0.0 Absolute Neutrophils 19.65 H Absolute Lymphocytes 1.24 Absolute Monocytes 1.51 H Absolute Eosinophils 0.02 Absolute Basophils 0.02 RBC Morphology Normal Sodium 138 Potassium 4.0 Chloride 101 Carbon Dioxide 29.0 Anion Gap 8.0 BUN 14 Creatinine 0.9 Est GFR (CKD-EPI 2020) 68.77 Glucose 132 H Calcium 9.6 Magnesium 1.7 L Total Bilirubin 1.3 H AST 49 H ALT 104 H Alkaline Phosphatase 107 Troponin I 4 Total Protein 7.9 Albumin 3.5 Lipase 17 Last Vital Signs Temp 98.3 F 11/26/24 08:08 Pulse 88 11/26/24 08:08 Resp 18 11/26/24 08:08 BP 168/67 H 11/26/24 08:08 Pulse Ox 95 11/26/24 08:08 Time Spent Time spent with Patient: 40-54 minutes Time was spent: preparing to see the patient(eg.review tests), obtaining and/or reviewing separately otained hiistory, indepentently interpreting results and counseling the patient
[2024-11-26] MEDS: Normal Saline 1,000 ML 1000 ML IV (10:15)
[2024-11-26] MEDS: PIPERACILLIN/TAZO 3.375 GM in Normal Saline 50 ML IVPB ×3 (10:31→22:15)
--- NOTE | 2024-11-26 11:28 | W.PC.ACHO ---
Registration Status: Primary Language: Preferred Language: ED Information & Data Chief Complaint Abd Prob 11/26/24 08:33 Triage Note Cramping, generalized 11/26/24 07:59 abdominal pain for three days, pt denies V/D, denies urinary symptoms- nothing for pain this morning, took pepto yesterday but it was not helpful Medical / Surgical History (Last Reviewed 09/12/24 @ 04:20 by Temo Draper) Pneumonia Pneumonia Acute hypoxic respiratory failure Chest pain (Last Reviewed 09/12/24 @ 04:20 by Temo Draper) History of laparoscopic appendectomy Hx of section Hx of hysterectomy Hx of colonoscopy (~04/2021) Most Recent Vital Signs Temperature 36.8 C 11/26/24 08:08 Temperature Source Oral 11/26/24 08:08 Pulse 68 11/26/24 11:20 Respiratory Rate 18 11/26/24 08:08 Blood Pressure 177/60 H 11/26/24 11:01 Blood Pressure Mean 96 11/26/24 11:01 Blood Pressure Position Sitting 11/26/24 08:08 Pulse Oximetry 94 11/26/24 11:20 Oxygen Delivery Method Room Air 11/26/24 08:08 Oxygen Flow Rate 0 11/26/24 08:08 Pain Level 10 11/26/24 08:08 Comment Pain comes and goes in waves 11/26/24 08:08 Allergies oxycodone Allergy (Mild, Unverified 11/26/24 08:02) rash Precautions Isolation Standard precaution 11/26/24 08:02 Active Medications Generic Name Dose Route Start Last Admin Trade Name Nikitaq PRN Reason Stop Dose Admin Iohexol 100 ml 11/26/24 09:15 11/26/24 09:11 Omnipaque 350 Mg/Ml 100 Ml Btl IJ 12/26/24 23:59 80 ml DIRECTED RIVAS Administration Sodium Chloride 50 ml 11/26/24 09:15 11/26/24 09:10 Normal Saline - Diluent 50 Ml Vial IJ 50 ml .FOR DI USE RIVAS Administration IV IV Catheter Type [Right Peripheral IV Antecubital] IV Catheter Gauge [Right 18 Antecubital] Diagnostics 11/26/24 11/26/24 11/26/24 Range/Units 11:32 11:19 09:05 WBC 22.53 H (4.4-10.8) 10^3/uL RBC 4.50 (3.93-5.22) 10^6/uL Hgb 14.3 (11.2-15.7) g/dL Hct 43.2 (36.0-46.0) % MCV 96 H (80-95) fL MCH 31.8 (27.0-33.0) pg MCHC 33.1 (32.0-36.0) % RDW 12.4 (11.7-14.6) % Plt Count 303 (130-400) 10^3/uL MPV 10.6 (8.0-11.0) fL Immature Gran % 0.4 % Neutrophils % 87.2 % Lymphocytes % 5.5 % Monocytes % 6.7 % Eosinophils % 0.1 % Basophils % 0.1 % Nucleated RBC % 0.0 (0.0-0.3) % Absolute Neutrophils 19.65 H (1.2-6.7) 10^3/uL Absolute Lymphocytes 1.24 (1.2-3.4) 10^3/uL Absolute Monocytes 1.51 H (0.1-0.8) 10^3/uL Absolute Eosinophils 0.02 (0.0-0.7) 10^3/uL Absolute Basophils 0.02 (0.0-0.2) 10^3/uL RBC Morphology Normal Sodium 138 (136-145) mmol/L Potassium 4.0 (3.5-5.1) mmol/L Chloride 101 (98-107) mmol/L Carbon Dioxide 29.0 (21.0-32.0) mmol/L Anion Gap 8.0 (3-11) mmol/L BUN 14 (7-18) mg/dL Creatinine 0.9 (0.55-1.02) mg/dL Est GFR (CKD-EPI 2020) 68.77 (mL/min/1.73m2) Glucose 132 H (74-106) mg/dL Calcium 9.6 (8.5-10.1) mg/dL Magnesium 1.7 L (1.8-2.4) mg/dL Total Bilirubin 1.3 H (0.2-1.0) mg/dL AST 49 H (15-37) U/L ALT 104 H (14-59) U/L Alkaline Phosphatase 107 (46-116) U/L Troponin I Pending Pending 4 (<or=51) ng/L Total Protein 7.9 (6.4-8.2) g/dL Albumin 3.5 (3.4-5.0) g/dL Lipase 17 (<78) U/L Intake and Output - 24 Hour Total 11/26/24 07:49 thru 11/26/24 11:09 Intake Total 1050 Balance 1050 Weight 68.492 kg Intake: IV 1050 Falls Risk Assessment History of Falls Previous History 11/26/24 08:08 Ambulatory Aids Independent 11/26/24 08:08 Tubes/Lines None 11/26/24 08:08 Gait Evaluation W/any additional score 11/26/24 08:08 Cognition No cognitive impairment 11/26/24 08:08 Fall Total Score 35 11/26/24 08:08 Level of Risk Moderate Risk 11/26/24 08:08 v v v v v v v v v Sending and/or Receiving Nurses: Please use comment section below to note any information pertinent to the patient hand-off not included above. Information / Comments: Report received from: Called for report at 11:22. SBAR report given by Susanna DREW. All questions answered.
[2024-11-26 11:45] LABS: Troponin I 7 ng/L (<or=51)
[2024-11-26] MEDS: HYDROmorphone 2 MG/ML SYR 1 MG IVP ×2 (12:02→19:55)
[2024-11-26] MEDS: Normal Saline Flush 10 ML SYR IVP ×2 (12:02→12:43)
[2024-11-26] MEDS: Lactated Ringers 1,000 ML 75 ML IV ×2 (12:44→19:56)
--- NOTE | 2024-11-26 14:40 | ANES.PREOP_ITS ---
General Info Date of Service Date Performed: 11/26/24 Height: 5 ft Weight: 69 kg Body Mass Index (BMI): 29.7 Surgical Procedure: Operation Date: 11/26/24 15:10 Proposed Procedure Side Surgeon p Cholecystectomy Laparoscopic Bear Rhodes MD Meds Allergies and Home Medications Allergies Allergy/AdvReac Type Severity Reaction Status Date / Time oxycodone Allergy Mild rash Unverified 11/26/24 08:02 Home Medication ?Medication ?Instructions ?Recorded Inhaler, Assist Devices [Pocket 1 ea miscellaneous DIRECTED ##0 03/13/22 Chamber] albuterol sulfate 2.5 mg/3 mL 2.5 mg (3 mL) inhalation QID PRN 08/29/24 (0.083 %) solution for nebulization #90 mL albuterol sulfate 90 mcg/actuation 2 puff inhalation Q6H PRN #8.5 08/29/24 aerosol inhaler grams fluticasone propionate 115 1 inh inhalation BID 08/29/24 mcg-salmeterol 21 mcg/actuation HFA inhaler (Advair HFA) umeclidinium 62.5 mcg/actuation 1 inh inhalation DAILY 08/29/24 blister powder for inhalation (Incruse Ellipta) acetaminophen 500 mg tablet 1,000 mg (2 x 500 mg) PO Q8H PRN 09/12/24 (Acetaminophen Extra Strength) prn #0 tabs ipratropium 20 mcg-albuterol 100 1 puff inhalation QID #4 grams 09/12/24 mcg/actuation mist for inhalation (Combivent Respimat) Current Visit Medications: Current Medications Generic Name Dose Route Start Last Admin Trade Name Freq PRN Reason Stop Dose Admin Albuterol Sulfate 2.5 mg 11/26/24 11:36 Albuterol 2.5 Mg/3 Ml Inh Soln Vial IH QID PRN PRN Albuterol Sulfate 2 puff 11/26/24 11:36 Albuterol Hfa 8 Gm 60 Puff Inh IH Q6H PRN PRN Albuterol/Ipratropium 1 puff 11/26/24 12:00 Ipratropium/Albuterol 4 Gm 120 Puff Inh IH QID RIVAS Budesonide/Formoterol Fumarate 2 puff 11/26/24 20:00 Budesonide/Formoterol 160/4.5 6 Gm 60 Puff Inh IH BID RIVAS Device 1 each 11/26/24 12:00 Inhaler, Assist Device DIRECTED [facility] Hydromorphone HCl 1 mg 11/26/24 11:36 11/26/24 12:02 Hydromorphone 2 Mg/Ml Syr IVP 1 mg Q4H PRN PRN Administration Ringer's Solution 1,000 mls @ 75 mls/hr 11/26/24 11:36 11/26/24 12:44 IV 75 mls/hr INFUSION [facility] Administration Piperacillin Sod/Tazobactam 50 mls @ 100 mls/hr 11/26/24 16:00 Sod 3.375 gm/ Sodium Chloride IVPB Q6H RIVAS Acetaminophen 1,000 mg in 100 mls @ 400 mls/hr 11/26/24 11:36 Ofirmev IVPB Q8H PRN PRN IV Miscellaneous Supplies 1 each 11/26/24 11:36 Iv Access IV DIRECTED [facility] Ondansetron HCl 4 mg 11/26/24 11:36 Ondansetron 4 Mg/2 Ml Vial IVP Q4H PRN PRN Sodium Chloride 0 ml 11/26/24 11:36 11/26/24 12:43 Normal Saline Flush 10 Ml Syr IVP 10 ml PRN PRN Administration Sodium Chloride 0 ml 11/26/24 20:00 Normal Saline Flush 10 Ml Syr IVP BID [facility] Sodium Chloride 0 ml 11/26/24 11:36 Normal Saline 10 Ml Vial IJ DIRECTED PRN PFSH Active Problems Active Problems: Problem Status Onset Code Acute hypoxic respiratory failure Acute J96.01 Borderline hyperglycemia Chronic R73.9 Pain in left acromioclavicular joint Acute M25.512 Tendinitis of long head of biceps brachii of left shoulder Acute M75.22 Calcific tendinitis of left shoulder Acute M75.32 Left rotator cuff tear Acute 05/17/23 M75.102 Acute respiratory failure with hypoxia and hypercapnia Acute J96.01, J96.02 Atrial tachycardia Resolved I47.1 Acute respiratory distress Resolved R06.03 COPD exacerbation Acute J44.1 Hypoxemia Acute R09.02 Tubular adenoma of colon Acute D12.6 Anemia Chronic D64.9 SOB (shortness of breath) Acute R06.02 COPD (chronic obstructive pulmonary disease) Chronic J44.9 Tobacco use disorder Chronic F17.200 Asthma, intermittent Acute J45.20 Chronic pain Chronic G89.29 Headache Acute R51.9 Fibrocystic breast disease Acute N60.19 GERD (gastroesophageal reflux disease) Chronic K21.9 Heart murmur Acute R01.1 Screening for colon cancer Acute Z12.11 Medical History Medical History Chest pain Per pt. states she has not had chest pain in years, and it was nothing when she had it years ago. Surgical History Surgical History History of laparoscopic appendectomy Hx of section Hx of hysterectomy Hx of colonoscopy (~04/2021) Tobacco Smoking/Tobacco Use Status: Former Tobacco Use Alcohol Alcohol Intake: never Substance Use Substance use: Never Substance use type: does not use Vital Signs and Lab Results Vital Signs Most Recent Vital Signs in EMR: Most Recent Vital Signs Temp Pulse Resp BP Pulse Ox 36.9 C 74 16 149/81 H 93 11/26/24 11:49 11/26/24 11:49 11/26/24 11:49 11/26/24 11:49 11/26/24 11:49 Lab Results 11/26/24 09:05 11/26/24 09:05 Blood Type / Crossmatch: 2 No Data to Display Complete Blood Count: 2 White Blood Count 22.53 10^3/uL (4.4-10.8) H 11/26/24 09:05 Red Blood Count 4.50 10^6/uL (3.93-5.22) 11/26/24 09:05 Hemoglobin 14.3 g/dL (11.2-15.7) 11/26/24 09:05 Hematocrit 43.2 % (36.0-46.0) 11/26/24 09:05 Platelet Count 303 10^3/uL (130-400) 11/26/24 09:05 Complete Metabolic Panel: 2 Sodium 138 mmol/L (136-145) 11/26/24 09:05 Potassium 4.0 mmol/L (3.5-5.1) 11/26/24 09:05 Chloride 101 mmol/L (98-107) 11/26/24 09:05 Carbon Dioxide 29.0 mmol/L (21.0-32.0) 11/26/24 09:05 BUN 14 mg/dL (7-18) 11/26/24 09:05 Creatinine 0.9 mg/dL (0.55-1.02) 11/26/24 09:05 Est GFR (CKD-EPI 2020) 68.77 (mL/min/1.73m2) 11/26/24 09:05 Magnesium 1.7 mg/dL (1.8-2.4) L 11/26/24 09:05 Calcium 9.6 mg/dL (8.5-10.1) 11/26/24 09:05 Albumin 3.5 g/dL (3.4-5.0) 11/26/24 09:05 Glucose 132 mg/dL (74-106) H 11/26/24 09:05 Liver Function Panel: 2 Alanine Aminotransferase (ALT/SGPT) 104 U/L (14-59) H 11/26/24 09:05 Aspartate Amino Transf (AST/SGOT) 49 U/L (15-37) H 11/26/24 09: 05 Coagulation Panel: 2 No Data to Display Cardiac Panel: 2 Troponin I 7 ng/L (<or=51) 11/26/24 Arterial Blood Gas: 2 No Data to Display Venous Blood Gas: 2 No Data to Display Pancreas Panel: 2 Lipase 17 U/L (<78) 11/26/24 09:05 Thyroid Panel: 2 No Data to Display Infectious Disease: 2 No Data to Display Blood Cultures: 2 No Data to Display Toxicology Panel: 2 No Data to Display Imaging and Studies Imaging and Studies Study information below may be from another EMR and interpreted by another provider. Please see original notes in EMR for more complete details. EKG Summary: 09/11/24 Conclusion Sinus rhythm...normal P axis, V-rate 60- 99 I have reviewed and interpreted ECG and agree with software generated interpretation. Stress Test Summary: Date of Exam: 04/16/16ex: F : 5Age: 60 Exam(s) Impressions: Normal study after pharmacologic stress. Summary: 1. Myocardial perfusion imaging: No myocardial perfusion defects noted. 2. The calculated left ventricular ejection fraction after stress: 59%. LV global systolic function is normal. No left ventricular regional motion abnormality. Anesthesia Assessment and Plan Anesthesia History Personal History: No History of Anesthesia Complications Family History: No Family History of Anesthesia Complications Exercise Tolerance Exercise Tolerance: Metabolic Equivalents<4 Pertinent Negatives Pertinent Negatives: No Major Cardiovascular Symptoms or Complaints Cardiac & Pulmonary Exam Cardiac Exam: Normal S1/S2 Heart Sounds Pulmonary Exam: Wheezing Present Cardiac and Pulmonary Comment:: Audible expiratory wheeze Implantable Cardiac Device Does patient have a Pacemaker or an ICD?: No Airway Exam Known Difficult Airway: No Mallampati Class: 2 Mouth Opening: Normal (> 3cm) Thyromental Distance: Greater than 3 cm Neck Range of Motion: Full ROM Neck Circumference: Normal Teeth Condition: Removable Dentures/Plates Upper, Removable Dentures/Plates Lower and Edentulous ASA Classification ASA Score: ASA 3 Emergency Case?: Yes NPO Status NPO Status: NPO Clears >2 hours, Solids >8 hours Anesthesia Plan Resuscitation Status: Full Code Anesthesia Technique: General Anesthesia Airway Planned: Endotracheal Tube Monitors Used: Standard Monitors and SedLine Preoperative Comments:: Discussed increased risk due to chronic respiratory status. Consented for rescue block (TAP) post op prn.
[2024-11-26] MEDS: Albuterol/Ipratropium 3 ML UPD VIAL (15:18)
[2024-11-26] MEDS: Indocyanine green 25 MG VIAL (15:25)
--- NOTE | 2024-11-26 17:00 | GB_PTH ---
PATIENT: Shakira Burrows LOC: U#:[id number] AGE/SX: 69/F ROOM: 226 RE11/26/[address]: Bear Rhodes MD : [id number] BED: A DIS: 11/28/2024 SPEC #: [id number] RECD: 11/27/24 12:10 STATUS: TRENA REQ #: [id number] DEEPAK: 11/26/24 17:[address]: Bear Rhodes DEPT: Surgical Specimen RECD BY: Gaby Trejo ENTERED: 11/27/24 12:11 SP TYPE: GB OTHR DR: Kirstie Vee Tissues: 1 - GALLBLADDER Procedures: IMMUNOPEROXIDASE STAIN GROSS AND MICRO LEVEL 3 Comments: [id number]
--- NOTE | 2024-11-26 17:33 | ROE_ITS ---
Operative Note Operative Note PRE-OP DIAGNOSIS: Acute cholecystitis Acute gangrenous cholecystitis PROCEDURE: Laparoscopic cholecystectomy SURGEON: Bear Rhodes SUPPOSITORY MOLDING MACHINE OPERATOR: Glenn Jones ANESTHESIA TYPE: Local By Surgeon and General LMA/ETT Refer to Anesthesia Record ESTIMATED BLOOD LOSS: 75 PATHOLOGY: other (Gallbladder) COMPLICATIONS: None Patient was transported to: PACU Patient's condition: stable Indications: Haroon is a 69-year-old woman with acute cholecystitis Findings: Acute gangrenous cholecystitis Procedure Description: After satisfactory induction of general anesthesia, I prepped and draped the abdomen in usual fashion. Next, I began with a periumbilical incision. I dissected down to the fascia, then establish pneumoperitoneum under the direct vision of a 5 mm optical viewing port. There was no evidence of any injury from entry into the peritoneum. Once the peritoneum was adequately inflated, I placed another 5 mm port in the right lateral abdominal wall. There were some adhesions adjacent to this which were easily divided with the Bovie electrocautery. The camera was then switched to the right abdominal position, and the umbilical port was upsized to 12 mm. 2 additional 5 mm ports were placed in the mid epigastrium and right mid abdomen. I then placed the patient in some reverse Trendelenburg and left side down positioning. The greater omentum was adherent over the dome of the gallbladder. This was carefully dissected free. The gallbladder wall was extremely thick, and there was evidence of patchy necrosis along the dome of the gallbladder extending down towards the body. Because the gallbladder was so filled with bile, was quite challenging to grasp. Therefore, it was decompressed with a needle. Once the gallbladder was deflated a bit, I was able to better hold the dome, and retracted cephalad over the liver edge. With the assistance of indocyanine green, I began by dissecting the gallbladder infundibulum. I worked in a lateral to medial fashion. Again, there was patchy necrosis without perforation along the infundibulum. There were thick adhesions around the triangle of Ronny, which was tediously dissected clear. I was able to skeletonize the cystic duct at the cystic neck, taking great care to stay away from the area of the common bile duct. Because of the amount of inflammation, I felt that dissection of the full critical view of safety would be quite challenging in proximity to the common bile duct. Therefore, staying well on the cystic neck, I divided this with a single fire of a GEOVANNA stapler after upsizing the midepigastric port to accommodate the stapling device. Once this was divided, I could gain a little better traction to stay away from the more critical structures of the nory hepatis. Staying quite close to the gallbladder wall, I dissected along the back portion, until I could find the distal branches of the cystic artery. This allowed me to gain some purchase proximal to the division of the artery, and this was doubly clipped and divided. With this complete, use electrocautery to then peel the gallbladder off of the underside of the gallbladder fossa. Because of the inflammation, there was a fair amount of bleeding off the gallbladder fossa. It was easily controlled with electrocautery. The surgical site was irrigated clean. The gallbladder was placed in an Endo Catch bag, then removed by way of the umbilical port. Because the gallbladder was so thickened, this port site did have to be enlarged to accommodate retrieval of the gallbladder in the bag once this was out, the umbilical port site was closed with [id number] Vicryl sutures. Pneumoperitoneum was reestablished, and ag ain some blood clot was irrigated clean from the surgical field. It appeared hemostatic. Because of the significant amount of inflammation, as well as the evidence of intra and extrahepatic ductal dilatation, I felt that leaving a drain in the surgical field would be the safest option. Therefore, surgical drain was delivered through the mid epigastric port, and brought out through the lateralmost port site on the right side. This was fixed in place, and tucked down into the gallbladder fossa. The remaining ports were removed. The midepigastric port was closed with interrupted Vicryl stitches, and the skin and subcutaneous tissues were irrigated prior to closure with subcuticular stitches. Bandages were applied, and Haroon was awoken from the anesthetic, extubated, and transferred to the recovery unit. Date of Procedure: 11/26/24
[2024-11-26] MEDS: Bupivacaine 0.25% Pres-Free W/EPI 30 ML VIAL (17:40)
[2024-11-26] MEDS: Albuterol 2.5 MG/3 ML INH SOLN VIAL UPD (17:52)
--- NOTE | 2024-11-26 19:24 | W.PC.ACHO ---
Registration Status: Primary Language: Preferred Language: ED Information & Data Chief Complaint Abd Prob 11/26/24 08:33 Triage Note Cramping, generalized 11/26/24 07:59 abdominal pain for three days, pt denies V/D, denies urinary symptoms- nothing for pain this morning, took pepto yesterday but it was not helpful Medical / Surgical History (Last Reviewed 09/12/24 @ 04:20 by Temo Draper) Pneumonia Pneumonia Acute hypoxic respiratory failure Chest pain (Last Reviewed 09/12/24 @ 04:20 by Temo Draper) History of laparoscopic appendectomy Hx of section Hx of hysterectomy Hx of colonoscopy (~04/2021) Most Recent Vital Signs Temperature 36.6 C 11/26/24 18:33 Temperature Source Temporal Artery Scan 11/26/24 11:49 Pulse 66 11/26/24 18:36 Pulse 66 11/26/24 18:36 Respiratory Rate 17 11/26/24 18:36 Blood Pressure 160/57 H 11/26/24 18:36 Blood Pressure Mean 92 11/26/24 18:36 Blood Pressure Position Sitting 11/26/24 08:08 Pulse Oximetry 93 11/26/24 18:36 Respiratory End-tidal CO2 29 11/26/24 18:36 Oxygen Delivery Method Nasal Cannula 11/26/24 17:53 Oxygen Flow Rate 2 11/26/24 18:33 Pain Level 0 11/26/24 18:33 Comment Pain comes and goes in waves 11/26/24 08:08 Allergies oxycodone Allergy (Mild, Unverified 11/26/24 08:02) rash Precautions Isolation Standard precaution 11/26/24 08:02 Active Medications Generic Name Dose Route Start Last Admin Trade Name Freq PRN Reason Stop Dose Admin Hydromorphone HCl 1 mg 11/26/24 11:36 11/26/24 12:02 Hydromorphone 2 Mg/Ml Syr IVP 1 mg Q4H PRN PRN Administration Ringer's Solution 1,000 mls @ 75 mls/hr 11/26/24 11:36 11/26/24 17:39 IV 75 mls/hr INFUSION RIVAS Infusion Piperacillin Sod/Tazobactam 50 mls @ 100 mls/hr 11/26/24 16:00 11/26/24 19:05 Sod 3.375 gm/ Sodium Chloride IVPB Not Given Q6H RIVAS Sodium Chloride 0 ml 11/26/24 11:36 11/26/24 12:43 Normal Saline Flush 10 Ml Syr IVP 10 ml PRN PRN Administration IV IV Catheter Type [] Peripheral IV IV Catheter Type [Right Peripheral IV Antecubital] IV Catheter Gauge [] 20 IV Catheter Gauge [Right 18 Antecubital] Diet Orders Category Date Time Status DIET [Regular/Normal] [DIET] Nutrition 11/26/24 Dinner Active Diagnostics 11/26/24 11/26/24 11/26/24 Range/Units 11:32 11:19 09:05 WBC 22.53 H (4.4-10.8) 10^3/uL RBC 4.50 (3.93-5.22) 10^6/uL Hgb 14.3 (11.2-15.7) g/dL Hct 43.2 (36.0-46.0) % MCV 96 H (80-95) fL MCH 31.8 (27.0-33.0) pg MCHC 33.1 (32.0-36.0) % RDW 12.4 (11.7-14.6) % Plt Count 303 (130-400) 10^3/uL MPV 10.6 (8.0-11.0) fL Immature Gran % 0.4 % Neutrophils % 87.2 % Lymphocytes % 5.5 % Monocytes % 6.7 % Eosinophils % 0.1 % Basophils % 0.1 % Nucleated RBC % 0.0 (0.0-0.3) % Absolute Neutrophils 19.65 H (1.2-6.7) 10^3/uL Absolute Lymphocytes 1.24 (1.2-3.4) 10^3/uL Absolute Monocytes 1.51 H (0.1-0.8) 10^3/uL Absolute Eosinophils 0.02 (0.0-0.7) 10^3/uL Absolute Basophils 0.02 (0.0-0.2) 10^3/uL RBC Morphology Normal Sodium 138 (136-145) mmol/L Potassium 4.0 (3.5-5.1) mmol/L Chloride 101 (98-107) mmol/L Carbon Dioxide 29.0 (21.0-32.0) mmol/L Anion Gap 8.0 (3-11) mmol/L BUN 14 (7-18) mg/dL Creatinine 0.9 (0.55-1.02) mg/dL Est GFR (CKD-EPI 2020) 68.77 (mL/min/1.73m2) Glucose 132 H (74-106) mg/dL Calcium 9.6 (8.5-10.1) mg/dL Magnesium 1.7 L (1.8-2.4) mg/dL Total Bilirubin 1.3 H (0.2-1.0) mg/dL AST 49 H (15-37) U/L ALT 104 H (14-59) U/L Alkaline Phosphatase 107 (46-116) U/L Troponin I Cancelled 7 4 (<or=51) ng/L Total Protein 7.9 (6.4-8.2) g/dL Albumin 3.5 (3.4-5.0) g/dL Lipase 17 (<78) U/L Intake and Output - 24 Hour Total 11/26/24 07:49 thru 11/26/24 18:33 Intake Total 1900 Output Total 375 Balance 1525 Weight 69 kg Intake: IV 1900 Output: Urine 300 Estimated Blood Loss 75 Other: Urine Color Yellow Urine Appearance Clear Urine Odor None Comment Patient voided a large amount on the OR bed. Emesis Description None Falls Risk Assessment History of Falls No History 11/26/24 11:37 Contributing Factors No Factors 11/26/24 11:37 Ambulatory Aids Independent 11/26/24 11:37 Tubes/Lines None 11/26/24 11:37 Gait Evaluation No gait disturbance 11/26/24 11:37 Cognition No cognitive impairment 11/26/24 08:08 Fall Total Score 0 11/26/24 11:37 Level of Risk Standard/Low Risk 11/26/24 11:37 Problems (Last Reviewed 09/12/24 @ 04:20 by Temo Draper) Cholecystitis (Acute) v v v v v v v v v Sending and/or Receiving Nurses: Please use comment section below to note any information pertinent to the patient hand-off not included above. Information / Comments: Report received from: Yael Sterling RN
--- NOTE | 2024-11-26 19:46 | W.ANESPOSTOP ---
Postoperative Evaluation Date, Time and Location Date Performed: 11/26/24 Time Performed: 18:36 Patient Location: PACU Vital Signs Most Recent Imported Vital Signs: Most Recent Vital Signs Temp Pulse Resp BP Pulse Ox 36.6 C 66 17 160/57 H 93 11/26/24 18:33 11/26/24 18:36 11/26/24 18:36 11/26/24 18:36 11/26/24 18:36 Pain Score Most Recent Pain Score: Most Recent Pain Score Pain Level 0 11/26/24 18:33 Assessment Mental Status: Awake (Alert & Oriented to Patient Baseline) Airway and Respiratory Function: Abnormal Respiratory exam (See explanation) ( chronic COPD, expiratory wheeze unchanged from preop baseline, ICU admit due to increased work of breathing requiring closer observation postoperatively.) Cardiovascular Function: Hemodynamically Stable Hydration Status: Adequately Hydrated (taking po fluids) Nausea & Vomiting: No Nausea or Vomiting Pain: Pt. Denies Any Pain Peripheral Nerve Block: Patient did not receive a nerve block
[2024-11-26] MEDS: Ipratropium/Albuterol 4 GM 120 PUFF INH IH (20:10)
[2024-11-26] MEDS: Budesonide/Formoterol 160/4.5 6 GM 60 PUFF INH IH (20:10)
[2024-11-27] VITALS (36 sets, daily range): BP systolic 102–160; BP diastolic 45–79; PULSE 53–76; RESP 8–26; TEMP 36.6–37.1; O2SAT 82–97
[2024-11-27] MEDS: ACETAMINOPHEN 1,000 MG/100 ML BAG 400 MG IVPB (03:42)
[2024-11-27] MEDS: PIPERACILLIN/TAZO 3.375 GM in Normal Saline 50 ML IVPB ×2 (03:43→11:03)
[2024-11-27 05:46] LABS: HCT 34.3 % (36.0-46.0); MCH 31.8 pg (27.0-33.0); MCHC 32.4 % (32.0-36.0); MCV 98 fL (80-95); MPV 10.6 fL (8.0-11.0); Platelet Count 213 10^3/uL (130-400); RBC 3.49 10^6/uL (3.93-5.22); RDW 12.9 % (11.7-14.6); RDW-SD 46.2 fL; WBC 19.87 10^3/uL (4.4-10.8)
[2024-11-27 05:51] LABS: HGB 11.1 g/dL (11.2-15.7)
[2024-11-27 06:05] LABS: ALT 153 U/L (14-59); AST 97 U/L (15-37); Albumin 2.5 g/dL (3.4-5.0); Alkaline Phosphatase 156 U/L (46-116); Bilirubin, Direct 0.5 mg/dL (0.0-0.2); Total Protein 6.2 g/dL (6.4-8.2)
[2024-11-27] MEDS: Normal Saline Flush 10 ML SYR IVP ×2 (07:49→19:35)
[2024-11-27] MEDS: Heparin 5,000 UNITS/ML VIAL 5000 UNITS SC ×2 (07:49→16:11)
[2024-11-27] MEDS: HYDROmorphone 2 MG/ML SYR 1 MG IVP ×3 (08:04→18:32)
[2024-11-27] MEDS: Budesonide/Formoterol 160/4.5 6 GM 60 PUFF INH IH ×2 (08:12→21:55)
[2024-11-27] MEDS: Ipratropium/Albuterol 4 GM 120 PUFF INH IH ×4 (08:13→21:55)
[2024-11-27] MEDS: Umeclidinium 7 CAP INHALER 1 CAP IH (08:13)
--- NOTE | 2024-11-27 08:59 | INITIAL_ITS ---
Date of service: 11/27/24 Time of Service: 08:59 Care Management Initial Assmt Initial Assessment Reason for Hospitalization: Cholecystitis Functional Status/Living Situation Patient Presentation: Shakira was sitting up in a chair in the iCU when CM met with her. She was awake, alert and oriented and easily; thre engaged with CM. Shakira lives in her single family home with several family members; there are 10 in total. She is retired but worked at [employer] for over 30 years. She is independent at baseline and does not receive any community resources. Shakira was admitted yesterday with severe abdominal pain which she described as worse than being in labor. She was found to have a gangrenous gall bladder and underwent an emergency cholecystectomy. The surgery went well and she stated she feels much better today. Town of Residence: [place] Resides with: Other (9 family members live with her - daughters, grandchildren and several of their spouses.) Significant Other/Family: [facility] Employment Status: Retired Instrumental Activities of Daily Living (ADLs): Independent Medications Medication Management: No Issues/Barriers identified Physical Functioning/Mobility Assistive Device: none Advance Directives Advance Directives: Do you have an Advance Directive: N 11/03/20 15:42 AD On File at [facility]: N 11/03/20 15:42 Date Asked 11/26/24 11/26/24 07:59 AD Date Reviewed COLST On File at [facility] No 08/29/24 17:33 COLST Date Scanned Code Status Resuscitation Status Full Code Portal Pt does not currently have a portal and education provided: Yes Insurance Coverage/Financial Issues Insurance: Medicare Care Team Visit Care Team Role Provider Type Kirstie Vee Primary Care Provider NURSE PRACTITIONER MARK Parker Emergency Provider [facility] Bear Rhodes MD Admit Provider [facility] STAFF PHYSICIAN Attending Provider Discharge Potential Discharge Needs: Surgical F/U Appt Anticipated Barriers to Discharge: None Identified Patient/Family Education Needs: Review discharge instructions, discuss Ask Me Three Transportation: Private vehicle Plan: Anticipate Shakira will be discharged home with no new services when medically cleared. She will follow up with her community providers and plan of care and transport with family. CM will follow and continue to assess form discharge needs. Social Determinants of Health Screening Social Determinants of health last assessed in clinic: 11/27/24 Will the Patient Participate in the Screening?: Yes Do you worry about having a steady place to live?: no Problems where you live: no known problems In the past 12 months, have you had to go without electric, gas, oil or water in your home?: no 1. Within the past 12 months, we worried whether our food would run out before we got money to buy more.: Never true 2. Within the past 12 months, the food we bought just didn't last and we didn't have money to get more.: Never true Has lack of transportation kept you from medical appointments or from doing things needed for daily living?: no Has anyone in your life made you feel unsafe or unsupported?: no How hard is it for you to pay for the very basics like food, housing, medical care, and heating? Would you say it is:: Not hard at all Do you want help finding or keeping work or a job?: I do not need or want help If for any reason you need help with day-to-day activities such as bathing, preparing meals, shopping, managing finances, etc., do you get the help you need?: I get all the help I need How often do you feel lonely or isolated from those around you?: Never Do you speak a language other than [place] at home?: No Does the patient want assistance with any of the above?: No PFSH All Active Problems (Updated 11/26/24 @ 15:53 by MARK Parker) Cholecystitis (Acute) Acute hypoxic respiratory failure (Acute) Borderline hyperglycemia (Chronic) Pain in left acromioclavicular joint (Acute) Tendinitis of long head of biceps brachii of left shoulder (Acute) Calcific tendinitis of left shoulder (Acute) Left rotator cuff tear (Acute 05/17/23) Acute respiratory failure with hypoxia and hypercapnia (Acute) COPD exacerbation (Acute) Hypoxemia (Acute) Tubular adenoma of colon (Acute) Anemia (Chronic) SOB (shortness of breath) (Acute) COPD (chronic obstructive pulmonary disease) (Chronic) Tobacco use disorder (Chronic) Asthma, intermittent (Acute) Chronic pain (Chronic) Headache (Acute) Fibrocystic breast disease (Acute) GERD (gastroesophageal reflux disease) (Chronic) Heart murmur (Acute) Screening for colon cancer (Acute) Medical History Chest pain Per pt. states she has not had chest pain in years, and it was nothing when she had it years ago. Surgical History History of laparoscopic appendectomy Hx of section Hx of hysterectomy Hx of colonoscopy (~04/2021) Social History Smoking/Tobacco Use Status: Former Tobacco Use tobacco type: cigarettes Quit Date: 09/09/21 Tobacco: How many years used: 45 Smoking risk assessment performed?: Yes Alcohol Intake: never Drug use: Never Substance use type: does not use Housing: apartment Do you feel safe at home: Yes Do you feel safe in your relationship?: Yes
[2024-11-27] MEDS: Lactated Ringers 1,000 ML 75 ML IV (11:04)
--- NOTE | 2024-11-27 11:42 | PHA.REVIEW2 ---
Pharmacy Admission Review Admission Clinical Review Admission Pharmacy Review: Cholecystitis (Acute) oxycodone Allergy (Mild, Unverified 11/26/24 08:02) rash Resuscitation Status Full Code Height 5 ft Weight 70.6 kg Comments Comments/Follow Ups: POD #1 Laparoscopic cholecystectomy Pharmacy Admission Review Renal Dosing Renal Dosing: BUN 14 mg/dL (7-18) 11/26/24 09:05 Creatinine 0.9 mg/dL (0.55-1.02) 11/26/24 09:05 Medications needing adjustments: Reviewed (CrCl 45.89 mL/min) List of meds needing interventions: Current medications are okay Anticoagulation Anticoagulation: Hgb 11.1 g/dL (11.2-15.7) L D 11/27/24 05:28 Hct 34.3 % (36.0-46.0) L 11/27/24 05:28 Plt Count 213 10^3/uL (130-400) 11/27/24 05:28 Creatinine 0.9 mg/dL (0.55-1.02) 11/26/24 09:05 DVT Prophylaxis: Reviewed (Hgb decreased from 14.3) Medications: Heparin (q8h) Opiate Usage Evaluate Pain Scale/Pains Meds: Reviewed (hydromorphone 1mg IVP q4h PRN - 4mg / 24hrs) Scheduled Bowel Reg ordered if on Opiates?: No Relevant Labs Relevant Labs: Sodium 138 mmol/L (136-145) 11/26/24 09:05 Potassium 4.0 mmol/L (3.5-5.1) 11/26/24 09:05 Chloride 101 mmol/L (98-107) 11/26/24 09:05 Magnesium 1.7 mg/dL (1.8-2.4) L 11/26/24 09:05 Electrolytes, C-Reactive P, ESR: Reviewed (ASt/ALT increased from 49/104 to 97/153) Cardiac Review Cardiac Review: Troponin I Cancelled 11/26/24 11:32 Blood Pressure 160/69 1102 Blood Pressure 113/62 1001 Blood Pressure 120/55 0901 Blood Pressure 102/79 0801 Blood Pressure 125/54 0701 Blood Pressure 115/52 0601 Blood Pressure 102/46 0501 BP, HR, EF%: Reviewed (HR 56, oxygen flow rate = 2) QTc Review QTc: Reviewed (418 from 09/11/24 - most recent EKG on file) IV to PO Switch IV Medications: Reviewed (APAP, hydromorphone, ondansetron and Zosyn) Home Meds Home Med List reviewed: Reviewed Relevent Home Meds Not ordered & why?: Advair (substituted with Symbicort per pharmacy protocol) Current Meds Current Medication Order Review: Reviewed Pharmacy Antibiotic Review Relevant Labs: WBC 19.87 10^3/uL (4.4-10.8) H 11/27/24 05:28 Temperature 36.7 C Temperature 37.1 C Pharmacy Antibiotic Activity: Reviewed, no change Comments: Patient is on Zosyn, day 2, for acute cholecystitis. WBC decreased from 22.53 and no cultures at this time. Comments Comments/Follow Ups: POD #1 Laparoscopic cholecystectomy
--- NOTE | 2024-11-27 16:10 | W.PC.ACHO ---
Registration Status: Primary Language: Preferred Language: ED Information & Data Chief Complaint Abd Prob 11/26/24 08:33 Triage Note Cramping, generalized 11/26/24 07:59 abdominal pain for three days, pt denies V/D, denies urinary symptoms- nothing for pain this morning, took pepto yesterday but it was not helpful Medical / Surgical History (Last Reviewed 09/12/24 @ 04:20 by Temo Draper) Pneumonia Pneumonia Acute hypoxic respiratory failure Chest pain (Last Reviewed 09/12/24 @ 04:20 by Temo Draper) History of laparoscopic appendectomy Hx of section Hx of hysterectomy Hx of colonoscopy (~04/2021) Most Recent Vital Signs Temperature 36.9 C 11/27/24 15:32 Temperature Source Temporal Artery Scan 11/27/24 15:32 Pulse 61 11/27/24 15:01 Pulse 64 11/27/24 15:01 Respiratory Rate 13 11/27/24 15:01 Blood Pressure 133/67 11/27/24 15:01 Blood Pressure Mean 85 11/27/24 15:01 Blood Pressure Position Sitting 11/26/24 08:08 Pulse Oximetry 92 11/27/24 15:01 Respiratory End-tidal CO2 29 11/26/24 18:36 Oxygen Delivery Method Nasal Cannula 11/27/24 11:30 Oxygen Flow Rate 2 11/27/24 11:30 Pain Level 9 11/27/24 11:16 Comment Pain comes and goes in waves 11/26/24 08:08 Allergies oxycodone Allergy (Mild, Unverified 11/26/24 08:02) rash Precautions Isolation Standard precaution 11/26/24 08:02 Active Medications Generic Name Dose Route Start Last Admin Trade Name Freq PRN Reason Stop Dose Admin Albuterol/Ipratropium 1 puff 11/26/24 12:00 11/27/24 11:28 Ipratropium/Albuterol 4 Gm 120 Puff Inh IH 1 puff QID RIVAS Administration Budesonide/Formoterol Fumarate 2 puff 11/26/24 20:00 11/27/24 08:12 Budesonide/Formoterol 160/4.5 6 Gm 60 Puff Inh IH 2 puffs BID RIVAS Administration Heparin Sodium (Porcine) 5,000 units 11/27/24 08:00 11/27/24 07:49 Heparin 5,000 Units/Ml Vial SC 5,000 units Q8H RIVAS Administration Hydromorphone HCl 1 mg 11/26/24 11:36 11/27/24 11:16 Hydromorphone 2 Mg/Ml Syr IVP 1 mg Q4H PRN PRN Administration Sodium Chloride 0 ml 11/26/24 11:36 11/26/24 12:43 Normal Saline Flush 10 Ml Syr IVP 10 ml PRN PRN Administration Sodium Chloride 0 ml 11/26/24 20:00 11/27/24 07:49 Normal Saline Flush 10 Ml Syr IVP 10 ml BID RIVAS Administration Umeclidinium Spangle 1 cap 11/27/24 08:30 11/27/24 08:13 Umeclidinium 7 Cap Inhaler IH 1 inh DAILY RIVAS Administration IV IV Catheter Type [Right Hand] Peripheral IV IV Catheter Type [Right Saline Lock Antecubital] IV Catheter Gauge [Right Hand] 20 IV Catheter Gauge [Right 18 Antecubital] Diet Orders Category Date Time Status DIET [Regular/Normal] [DIET] Nutrition 11/27/24 Dinner Active Diagnostics 11/27/24 Range/Units 05:28 WBC 19.87 H (4.4-10.8) 10^3/uL RBC 3.49 L (3.93-5.22) 10^6/uL Hgb 11.1 L D (11.2-15.7) g/dL Hct 34.3 L (36.0-46.0) % MCV 98 H (80-95) fL MCH 31.8 (27.0-33.0) pg MCHC 32.4 (32.0-36.0) % RDW 12.9 (11.7-14.6) % Plt Count 213 (130-400) 10^3/uL MPV 10.6 (8.0-11.0) fL Total Bilirubin 1.0 (0.2-1.0) mg/dL Conjugated Bilirubin 0.5 H (0.0-0.2) mg/dL AST 97 H (15-37) U/L ALT 153 H (14-59) U/L Alkaline Phosphatase 156 H (46-116) U/L Total Protein 6.2 L (6.4-8.2) g/dL Albumin 2.5 L (3.4-5.0) g/dL Intake and Output - 24 Hour Total 11/26/24 07:49 thru 11/27/24 15:45 Intake Total 3672.50 Output Total 1260 Balance 2412.50 Weight 70.6 kg Intake: IV 3672.50 Output: Drainage 335 Right Mid Anterior Lateral 335 Abdomen Urine 850 Estimated Blood Loss 75 Other: Urine Color Yellow Urine Appearance Clear Urine Odor None Comment unknown amount due to toilet paper being mixed in Emesis Description None Falls Risk Assessment History of Falls No History 11/26/24 11:37 Contributing Factors No Factors 11/26/24 11:37 Ambulatory Aids Independent 11/26/24 11:37 Tubes/Lines None 11/26/24 11:37 Gait Evaluation No gait disturbance 11/26/24 11:37 Cognition No cognitive impairment 11/26/24 08:08 Fall Total Score 0 11/26/24 11:37 Level of Risk Standard/Low Risk 11/26/24 11:37 Problems (Last Reviewed 09/12/24 @ 04:20 by Temo Draper) Cholecystitis (Acute) v v v v v v v v v Sending and/or Receiving Nurses: Please use comment section below to note any information pertinent to the patient hand-off not included above. Information / Comments: Report received from:dayton
--- NOTE | 2024-11-27 18:02 | PGE_ITS ---
Date of Service Date of service: 11/27/24 Time of Service: 18:02 Assessment and Plan Assessment and plan (1) Cholecystitis: Status: Acute Assessment and plan: Haroon is doing quite well after laparoscopic cholecystectomy. Pulmonary function seems to be stable, and her oxygen is weaning nicely. I will advance her diet today, and repeat some blood work tomorrow. I did like to see how the drain evolves as she starts on some regular food. Hopefully will remain low volume and serosanguineous, and I can get it out before she is discharged. Subjective Subjective Interval history since last seen: Haroon looks great. She is sitting up in the chair. She is tolerating some l iquids without any significant nausea or vomiting. Labs today are reassuring, with decreasing bilirubin. Exam GI Other: Abdomen is soft and nondistended. Bandages are clean. Right upper quadrant drain is serosanguineous, and I do not appreciate any evidence of bile leakage at this time. Objective Last Vital Signs Temp 97.9 F 11/27/24 16:24 Pulse 65 11/27/24 16:24 Resp 14 11/27/24 16:24 BP 156/63 H 11/27/24 16:24 Pulse Ox 93 11/27/24 17:24 Laboratory Results - last 24 hr 11/27/24 05:28 WBC 19.87 H RBC 3.49 L Hgb 11.1 L D Hct 34.3 L MCV 98 H MCH 31.8 MCHC 32.4 RDW 12.9 Plt Count 213 MPV 10.6 Total Bilirubin 1.0 Conjugated Bilirubin 0.5 H AST 97 H ALT 153 H Alkaline Phosphatase 156 H Total Protein 6.2 L Albumin 2.5 L Time Spent with Patient Time Spent with Patient: <25 minutes Time was spent: preparing to see the patient(eg.review tests), ordering medications,tests, procedures, referring, communicating with other health hospice home care coordinator and indepentently interpreting results
[2024-11-28] MEDS: Heparin 5,000 UNITS/ML VIAL 5000 UNITS SC (00:32)
[2024-11-28 05:26] VITALS: BP 129/50; PULSE 68; RESP 14; TEMP 37.2; O2SAT 96
[2024-11-28 06:58] LABS: ALT 98 U/L (14-59); AST 41 U/L (15-37); Albumin 2.6 g/dL (3.4-5.0); Alkaline Phosphatase 106 U/L (46-116); Bilirubin, Direct 0.2 mg/dL (0.0-0.2); Bilirubin, Total 0.5 mg/dL (0.2-1.0); Total Protein 6.1 g/dL (6.4-8.2)
[2024-11-28 07:42] VITALS: PULSE 62; RESP 14; TEMP 36.8; O2SAT 90
[2024-11-28] MEDS: Budesonide/Formoterol 160/4.5 6 GM 60 PUFF INH IH (08:29)
[2024-11-28] MEDS: Ipratropium/Albuterol 4 GM 120 PUFF INH IH (08:29)
[2024-11-28] MEDS: Umeclidinium 7 CAP INHALER 1 CAP IH (08:29)
--- NOTE | 2024-11-28 09:03 | W.PM.DS.N ---
Date of service: 11/28/24 Time of Service: 10:42 DS: Diagnosis Discharge Diagnosis (1) Cholecystitis: Status: Acute Asessment and Plan: Discharge home with outpatient follow-up Discharge Plan Disposition Patient Disposition: Home Condition: Improving Discharge Details Reason For Visit: acute cholecystitis Admit Date/Time: 11/26/24 10:03 Admit Provider: Bear Rhodes Attending Provider: Bear Rhodes Primary Care Provider: Kirstie Vee Hospital Course Hospital Course: Shakira is a 69-year-old woman who comes to the hospital with acute onset of abdominal pain. She was found to have acute cholecystitis. She underwent laparoscopic cholecystectomy, recovered in the intensive care unit because of her severe COPD. Pain was controlled after surgery, and her diet was advanced appropriately. She had minimal output from the drain left from surgery, and this was removed prior to discharge. Home Meds and New Rx's Prescriptions: Continued Combivent Respimat 20-100 mcg/actuation mist 1 puff inhalation QID Qty: 4 0RF Rx Instructions: space evenly during waking hours acetaminophen [Acetaminophen Extra Strength] 500 MG tablet 1,000 mg PO Q8H PRN (Reason: prn) Qty: 0 0RF Inhaler, Assist Devices [Pocket Chamber] 1 ea miscellaneous DIRECTED Qty: 0 0RF fluticasone propion-salmeterol [Advair HFA] 115-21 mcg/actuation HFA aerosol inhaler 1 inh inhalation BID Incruse Ellipta 62.5 mcg/actuation blister with device 1 inh inhalation DAILY albuterol sulfate 90 mcg/actuation HFA aerosol inhaler 2 puff inhalation Q6H PRNQty: 8.5 3RF albuterol sulfate 2.5 mg /3 mL (0.083 %) solution for nebulization 2.5 mg inhalation QID PRNQty: 90 3RF Discharge Instructions Instructions: Cholecystectomy (DC), Cholecystectomy, Laparoscopic Surgery Additional Instructions: Shakira, it was great meeting you and your daughter here in the hospital. And am glad that you are making a nice recovery. I hope the transition home goes smoothly. As you probably recall, you had inflammation of your gallbladder called cholecystitis. We removed your gallbladder during surgery, which should fix the problem, and prevent it from coming back. As I mentioned, some patients will experience some diarrhea after having her gallbladder removed. Usually that can be augmented by cutting fat out of your diet for a few weeks. I do not suspect that will happen, but I do mention in case you experience any discomfort. Please keep your lifting light over the next few days, but be sure to get up and move around and get some basic exercise. You can remove all the Band-Aids tomorrow, then wash all the incisions with warm soapy water in the shower. You are welcome to reapply Band-Aids if you prefer, but is not medically necessary. I will have the office call you on Saturday to schedule a follow-up visit. If you need anything at all in between, please do not hesitate to call the hospital. 1. Resume all of your regular medications. 2. You can use ice packs over the incisions to help with swelling or pain. 3. Alternate [id number] Tylenol and ibuprofen every 6 hours if needed for pain. 4. Leave bandage in place for 24 hours, then remove. 5. Shower with warm soapy water. Pat dry. You can use new Band-Aids if needed 6. No soaking or tub baths until I see you in the office. 7. No heavy lifting until I see you in the office. 8. Call the office (or go directly to the emergency room after hours) if you notice any of the following: Develop chills (warm to touch), or if you have a thermometer and your temperature is above 101 Difficulty breathing or difficultly swallowing Persistent vomiting Any bleeding ? exceeding one tablespoon 9. Call your physician if the site where your intravenous was started becomes red, swollen, painful, and warm to touch. Activity:: No heavy lifting Equipment/Supplies:: No Equipment Needed Diet:: As Tolerated DS: Summary Time Spent with Patient providing and/or coordinating discharge services: Less than 30 minutes Status at Discharge Functional status at discharge: independent ambulation Overall status at discharge: patient is progressing back to baseline Mental Status: mental status grossly normal Speech and Movement: speech and movement normal Mood: congruent mood Affect: normal affect Quality:SDOH Health Related Social Needs: No Data to Display Exam Psych Mental Status: mental status grossly normal Speech and Movement: speech and movement normal Mood: congruent mood Affect: normal affect DS: Data Vitals/I&O Vitals and I&O: Vital Signs Temperature 98.2 F 11/28/24 07:42 Temperature Source Temporal Artery Scan 11/28/24 07:42 Pulse 62 11/28/24 07:42 Pulse 64 11/27/24 15:01 Respiratory Rate 14 11/28/24 07:42 Blood Pressure 129/50 L 11/28/24 05:26 Blood Pressure Mean 76 11/28/24 05:26 Blood Pressure Position Sitting 11/26/24 08:08 Pulse Oximetry 90 L 11/28/24 07:42 Respiratory End-tidal CO2 29 11/26/24 18:36 Oxygen Delivery Method Room Air 11/28/24 07:42 Oxygen Flow Rate 0 11/28/24 07:42 Pain Level 0 11/28/24 07:42 Comment COPD 11/28/24 07:42 Intake & Output 11/27/24 11/27/24 11/28/24 11:59 23:59 11:59 Intake Total 1250 / 1601.25 351.25 / 1601.25 Output Total 485 / 745 260 / 745 5 / 5 Balance 765 / 856.25 91.25 / 856.25 -5 / -5 Intake: IV 1250 / 1601.25 351.25 / 1601.25 Output: Drainage 135 / 195 60 / 195 5 / 5 Right Mid Anterior Lateral 135 / 195 60 / 195 5 / 5 Abdomen Urine 350 / 550 200 / 550 Other: Urine Color Light Irina Yellow Urine Appearance Clear Clear Comment unknown amount due to toilet paper being mixed in Data Completed and Pending Labs on day of discharge: Labs from last 24 hours 11/28/24 06:16 Total Bilirubin 0.5 Conjugated Bilirubin 0.2 AST 41 H ALT 98 H Alkaline Phosphatase 106 Total Protein 6.1 L Albumin 2.6 L PFSH All Active Problems (Updated 11/26/24 @ 15:53 by MARK Parker) Cholecystitis (Acute) Acute hypoxic respiratory failure (Acute) Borderline hyperglycemia (Chronic) Pain in left acromioclavicular joint (Acute) Tendinitis of long head of biceps brachii of left shoulder (Acute) Calcific tendinitis of left shoulder (Acute) Left rotator cuff tear (Acute 05/17/23) Acute respiratory failure with hypoxia and hypercapnia (Acute) COPD exacerbation (Acute) Hypoxemia (Acute) Tubular adenoma of colon (Acute) Anemia (Chronic) SOB (shortness of breath) (Acute) COPD (chronic obstructive pulmonary disease) (Chronic) Tobacco use disorder (Chronic) Asthma, intermittent (Acute) Chronic pain (Chronic) Headache (Acute) Fibrocystic breast disease (Acute) GERD (gastroesophageal reflux disease) (Chronic) Heart murmur (Acute) Screening for colon cancer (Acute) Medical History Chest pain Per pt. states she has not had chest pain in years, and it was nothing when she had it years ago. Surgical History History of laparoscopic appendectomy Hx of section Hx of hysterectomy Hx of colonoscopy (~04/2021) Social History Smoking/Tobacco Use Status: Former Tobacco Use tobacco type: cigarettes Quit Date: 09/09/21 Tobacco: How many years used: 45 Smoking risk assessment performed?: Yes Alcohol Intake: never Drug use: Never Substance use type: does not use Housing: apartment Do you feel safe at home: Yes Do you feel safe in your relationship?: Yes Time Spent with Patient Time Spent with Patient: <45 minutes Time was spent: preparing to see the patient(eg.review tests), indepentently interpreting results and care coordination
--- NOTE | 2024-11-28 10:44 | RESPIRATORY ---
11/28/2024 Pt SPO2 low 80%s , pt was asymptomatic denying any SOB. Pt was placed on 1L. This RT spoke to Dr. Rhodes who is not concerned about her O2 requirement because she is not SOB and would still like to send her home. Pt taken off the oxygen and IS was done with pt. Pt was 86% on RA but SPO2 trell to 90% with IS. Pt instructed to use IS every hour while awake at home.
--- NOTE | 2024-11-28 10:52 | PGE_ITS ---
Date of Service Date of service: 11/28/24 Time of Service: 10:52 Assessment and Plan Assessment and plan (1) Cholecystitis: Status: Acute Assessment and plan: I think Haroon is doing great after surgery. She has minimal oxygen requirements today, and has been asymptomatic with some transient decreases in her pulse oximetry. I respectively pretty much her baseline. I did remove the drain today, and she tolerated that fine. Will discharge her home today with outpatient follow-up. Subjective Subjective Interval history since last seen: Shakira looks great today. She is sitting up in the chair. She tolerated a regular diet for dinner last night. She has had minimal pain, and there is been minimal drainage from the CAYDEN drain overnight. Liver function test continue to normalize. Exam GI Other: Abdomen is soft and nondistended. Bandages are clean. She is not tender. Objective Last Vital Signs Temp 98.2 F 11/28/24 07:42 Pulse 62 11/28/24 07:42 Resp 14 11/28/24 07:42 BP 129/50 L 11/28/24 05:26 Pulse Ox 90 L 11/28/24 07:42 Laboratory Results - last 24 hr 11/28/24 06:16 Total Bilirubin 0.5 Conjugated Bilirubin 0.2 AST 41 H ALT 98 H Alkaline Phosphatase 106 Total Protein 6.1 L Albumin 2.6 L Time Spent with Patient Time Spent with Patient: 25-34 minutes Time was spent: preparing to see the patient(eg.review tests), referring, communicating with other health home health care coordinator, indepentently interpreting results, counseling the patient and care coordination
--- NOTE | 2024-11-28 12:40 | CMDISCH_ITS ---
Date of service: 11/28/24 Time of Service: 12:40 LACE Index Scoring Tool Questions: Length of Stay (in days): 2 Was the patient admitted via the E.D.?: Yes Comorbidities: Chronic Pulmonary Disease E.D. Visits: 2 Answers: Total Score: 9 Risk of Readmission: Low Risk Care Management Discharge Plan Reason for Hospitalization: acute cholecystitis Discharge Plan: Shakira returned home today with no new services. She transported home via private vehicle by family. She will follow up with surgical services, her PCP and discharge plan of care. She was happy to be going home. Patient/Family Education Needs: Review discharge instructions and limitations, discussion of self care needs including ask me three. SDOH Health Related Social Needs: 2 No Data to Display
== END 2024-11-28 12:22 | disposition home or self-care (01) | DRG 419 ==
LOC: ER 08:09 → MS 11:35 → ICU 18:59 → MS 11-27 16:40
PROVIDERS: Admitting Provider Surgery; Emergency Provider Physician Assistant; PCP Nurse Practitioner Family; Visit Provider Surgery
PROC: 0FT44ZZ Resection of Gallbladder, Percutaneous Endoscopic Approach (ICD-10-PCS; CPT 47562; principal; 2024-11-26 15:00)
DX: K81.0 Acute cholecystitis (principal); J44.9 Chronic obstructive pulmonary disease, unspecified; K82.8 Other specified diseases of gallbladder; K82.A1 Gangrene of gallbladder in cholecystitis; D64.9 Anemia, unspecified; G89.29 Other chronic pain; K21.9 Gastro-esophageal reflux disease without esophagitis; R01.1 Cardiac murmur, unspecified; Z87.891 Personal history of nicotine dependence; Z79.899 Other long term (current) drug therapy
CPT/HCPCS: 47562; 36415; 71275; 80053; 80076; 83690; 85027; 94640; 94761; 96365; 96375; 99222; 99285; 74174; 83735; 84484; 85025; 88304; 88361; 94664; 94760; J0131; J1100; J1171; J1644; J1805; J2003; J2270; J2405; J2543; J2704; J3490; J7613; J7620

== ENCOUNTER → 2024-12-10 11:10 | Outpatient (BNVA) | payer MEDICARE, SELFPAY | PROVIDERS: PCP Nurse Practitioner Family; Referring Provider Nurse Practitioner Family; Visit Provider Surgery | DX: C23 Malignant neoplasm of gallbladder (principal) | CPT/HCPCS: 99024 ==

== ENCOUNTER 2025-04-01 00:42 | Outpatient (RCR) | payer MEDICARE, MEDICAID, SELFPAY ==
[2025-03-25] MEDS: Normal Saline Flush 10 ML SYR IVP (07:28)
[2025-03-25 07:39] LABS: Abs Immature Grans 0.16 10^3/uL (0.0-0.06); HCT 32.2 % (36.0-46.0); HGB 10.3 g/dL (11.2-15.7); Immature Grans % 0.7 %; MCH 31.7 pg (27.0-33.0); MCHC 32.0 % (32.0-36.0); MCV 99 fL (80-95); MPV 9.5 fL (8.0-11.0); Platelet Count 251 10^3/uL (130-400); RBC 3.25 10^6/uL (3.93-5.22); RDW 14.2 % (11.7-14.6); RDW-SD 51.2 fL; WBC 21.56 10^3/uL (4.4-10.8)
[2025-03-25 08:02] LABS: ALT 63 U/L (14-59); AST 25 U/L (15-37); Albumin 2.5 g/dL (3.4-5.0); Alkaline Phosphatase 167 U/L (46-116); Anion Gap 7.8 mmol/L (3-11); BUN 18 mg/dL (7-18); Bilirubin, Total 0.4 mg/dL (0.2-1.0); CO2 27.2 mmol/L (21.0-32.0); Calcium 8.5 mg/dL (8.5-10.1); Chloride 105 mmol/L (98-107); Estimated GFR 92.98 (mL/min/1.73m2); Glucose 74 mg/dL (74-106); Magnesium 1.6 mg/dL (1.8-2.4); Potassium 3.6 mmol/L (3.5-5.1); Sodium 140 mmol/L (136-145); TSH 6.52 uIU/mL (0.36-3.74); Total Protein 5.7 g/dL (6.4-8.2)
[2025-03-25 08:08] LABS: RBC Morphology Normal
[2025-03-26 10:32] LABS: CA 19-9 201 U/mL (<35)
[2025-04-01] MEDS: Normal Saline Flush 10 ML SYR IVP (07:13)
[2025-04-01 07:32] LABS: Abs Immature Grans 0.04 10^3/uL (0.0-0.06); HCT 27.2 % (36.0-46.0); HGB 8.5 g/dL (11.2-15.7); Immature Grans % 0.5 %; MCH 30.7 pg (27.0-33.0); MCHC 31.3 % (32.0-36.0); MCV 98 fL (80-95); MPV 9.2 fL (8.0-11.0); RBC 2.77 10^6/uL (3.93-5.22); RDW 13.7 % (11.7-14.6); RDW-SD 49.8 fL; WBC 8.38 10^3/uL (4.4-10.8)
[2025-04-01 07:41] LABS: Platelet Count 83 10^3/uL (130-400); RBC Morphology Normal
[2025-04-01 08:10] LABS: ALT 61 U/L (14-59); AST 28 U/L (15-37); Albumin 2.4 g/dL (3.4-5.0); Alkaline Phosphatase 164 U/L (46-116); Anion Gap 4.4 mmol/L (3-11); BUN 15 mg/dL (7-18); Bilirubin, Total 0.3 mg/dL (0.2-1.0); CO2 30.6 mmol/L (21.0-32.0); Calcium 8.4 mg/dL (8.5-10.1); Chloride 104 mmol/L (98-107); Estimated GFR 79.22 (mL/min/1.73m2); Glucose 115 mg/dL (74-106); Magnesium 1.8 mg/dL (1.8-2.4); Potassium 4.1 mmol/L (3.5-5.1); Sodium 139 mmol/L (136-145); TSH 1.82 uIU/mL (0.36-3.74); Total Protein 5.7 g/dL (6.4-8.2)
[2025-04-02 10:36] LABS: CA 19-9 194 U/mL (<35)
== END 2025-04-06 23:59 | disposition home or self-care (01) ==
LOC: INF 00:42
PROVIDERS: PCP Nurse Practitioner Family; Visit Provider Internal Medicine Hematology & Oncology
DX: C23 Malignant neoplasm of gallbladder (principal); Z79.899 Other long term (current) drug therapy; Z45.2 Encounter for adjustment and management of vascular access device
CPT/HCPCS: 36591; 80053; 83735; 84439; 84443; 85025; 86301

== ENCOUNTER 2025-04-05 16:36 | Observation (INO) | payer MEDICARE, MEDICAID, SELFPAY ==
[2025-04-05] VITALS (38 sets, daily range): BP systolic 137; BP diastolic 64–79; PULSE 58–91; RESP 15–18; TEMP 36.7; O2SAT 95
--- NOTE | 2025-04-05 16:45 | RT.EKG_ITS ---
APPROVED REPORT Exam: Resting ECG Reason for Exam: chest pain Patient Location: E HR:73 bpm ECG Measurements Heart Rate 73 AXIS OK 144 P 75 QRSd 86 QRS 50 QT 374 T 42 QTc 412 Conclusion Sinus rhythm...normal P axis, V-rate 60- 99 Low voltage, precordial leads...precordial leads <1.0mV
--- NOTE | 2025-04-05 16:45 | DI.CT_ITS ---
Exam(s) CT CHEST PE ABD PELVIS W EXAM: CT CHEST PE ABD PELVIS W CLINICAL HISTORY: right sided chest pain/upper abd pain.. TECHNIQUE: Imaging Protocol: Axial computed tomography images with coronal and sagittal reformatted images were created and reviewed. Computer aided detection (CAD) was utilized. CONTRAST MATERIAL: Intravenous: Omnipaque 350 Contrast volume:75 ml Oral: / no COMPARISON: CT CT THORAX ABD/PEL CTA from 11/26/2024 FINDINGS: CHEST: Pulmonary parenchyma: Exam is mildly limited by respiratory motion. No consolidation. No dominant measurable mass. There are minimal emphysematous changes. There is mild atelectasis in the in the medial right middle lobe and lingula. No suspicious pulmonary nodules. Tracheobronchial tree: No bronchiectasis. No mucous plugging.No bronchial wall thickening. Pleura: No effusion or pneumothorax. Mediastinum: Within normal limits. Pulmonary arteries: The pulmonary arteries are mildly prominent. The arteries are well opacified with IV contrast. No visible emboli. Cardiovascular: The heart is normal in size. No pericardial effusion. Thoracic aorta non-dilated. Bones: Unremarkable for age. No lytic or blastic lesions. No compression fractures. Soft tissues: Port over right pectoral muscle. ABDOMEN and PELVIS: The exam is limited by motion, unfortunately in the region of interest of the liver. Liver: Normal size and overall density. There is now a large area of decreased attenuation above the level of the gallbladder fossa measuring grossly 6 x 5 cm. There also multiple small hypodensities seen throughout the liver which were not previously seen. The findings are consistent with liver metastases. Abscesses are not excluded. Gallbladder and biliary tract: Status post cholecystectomy. No biliary dilatation. No fluid collection in the gallbladder fossa. Pancreas: Not well evaluated due to motion at this level. No gross evidence of inflammation or mass. Spleen: Normal. Kidneys: Normal size, contour and axis. No radiodense stones. No obstructive uropathy. No suspicious masses seen. Adrenal glands: No masses seen. Aorta: Abdominal portion non-dilated. Mild atherosclerotic changes. Lymph nodes: There is a mildly enlarged lymph node seen in the upper abdomen, in the para-aortic region, mild at the level of the renal vessels. Question of small lymph noted above the level of the pancreas. The areas obscured by motion. Soft tissues: There is an anterior abdominal wall scar with mild edema. No abscess. Bladder: Unremarkable. Bowel: No obstruction or bowel wall thickening. Diverticulosis of the sigmoid without evidence of diverticulitis. Peritoneal cavity: No ascites. No focal collection. No mesenteric inflammatory response. No free air. Bones: Unremarkable for age. No lytic or blastic lesions are identified. Reproductive organs: Hysterectomy. IMPRESSION: No acute abnormality in the chest Abnormal liver lesions consistent with metastases. Abscesses not excluded. Findings are new since the previous exam of November 2024. Findings were called to Dr. Chapa of the emergency department RADIATION DOSE DELIVERED: Total DLP DATA REPOSITORY: All CT scans at this facility are submitted to the National Radiology Data Registry (NRDR) Dose Index Registry (DIR) with the [employer] (ACR). RADIATION OPTIMIZATION: All CT scans at this facility use at least one of these dose optimization techniques: automated exposure control; mA and/or kV adjustment per patient size (includes targeted exams where dose is matched to clinical indication); or iterative reconstruction.
--- NOTE | 2025-04-05 17:01 | W.ED.GENAD ---
Discharge Plan Disposition Patient Disposition: Admit to [facility] Condition: Serious Discharge Details Clinical Impression: Chest pain, Abdominal pain, Elevated troponin Primary Care Provider: Kirstie Vee ED Provider: Kadeem Chapa Home Meds and New Rx's Prescriptions: No Action Combivent Respimat 20-100 mcg/actuation mist 1 puff inhalation QID Qty: 4 0RF Rx Instructions: space evenly during waking hours prednisone 20 mg tablet 40 mg PO DAILY Patient Comments: TAKE TWO TABLETS BY MOUTH EVERY DAY dexamethasone 2 mg tablet 2 mg PO BID Patient Comments: TAKE 1 TABLET BY MOUTH TWICE DAILY WITH MEALS. TAKE IN THE MORNING AND EARLY AFTERNOON. DO NOT TAKE AT NIGHT ondansetron 4 mg tablet,disintegrating 4 mg PO Q8H PRN Patient Comments: DISSOLVE 1 TABLET ON THE TONGUE EVERY 8 HOURS NEEDED FOR NAUSEA Inhaler, Assist Devices [Pocket Chamber] 1 ea miscellaneous DIRECTED Qty: 0 0RF fluticasone propion-salmeterol [Advair HFA] 115-21 mcg/actuation HFA aerosol inhaler 1 inh inhalation BID Incruse Ellipta 62.5 mcg/actuation blister with device 1 inh inhalation DAILY albuterol sulfate 90 mcg/actuation HFA aerosol inhaler 2 puff inhalation Q6H PRNQty: 8.5 3RF albuterol sulfate 2.5 mg /3 mL (0.083 %) solution for nebulization 2.5 mg inhalation QID PRNQty: 90 3RF HPI General Mode of arrival: ambulatory. Date/Time Provider Initiated Documentation: 04/05/25 16:45. Limitations to Documentation: no limitations. Information obtained by: patient. History of Present Illness 69 year old F presents to the emergency department with the chief complaint of right sided chest and abdomen pain, described as moderate, Quality is described as sharp, and is localized to the chest and abdomen. Patient started experiencing this hour(s) (12) and it has been constant. No relieving factors improve symptom(s), No exacerbating factors reported . Patient notes cough. Patient did receive the following treatments prior to arrival, none Related Data Home Medications ?Medication ?Instructions ?Recorded ?Confirmed Inhaler, Assist Devices [Pocket 1 ea miscellaneous DIRECTED ##0 03/13/22 04/05/25 Chamber] albuterol sulfate 2.5 mg/3 mL 2.5 mg (3 mL) inhalation QID PRN 08/29/24 04/05/25 (0.083 %) solution for nebulization #90 mL albuterol sulfate 90 mcg/actuation 2 puff inhalation Q6H PRN #8.5 08/29/24 04/05/25 aerosol inhaler grams fluticasone propionate 115 1 inh inhalation BID 08/29/24 04/05/25 mcg-salmeterol 21 mcg/actuation HFA inhaler (Advair HFA) umeclidinium 62.5 mcg/actuation 1 inh inhalation DAILY 08/29/24 04/05/25 blister powder for inhalation (Incruse Ellipta) ipratropium 20 mcg-albuterol 100 1 puff inhalation QID #4 grams 09/12/24 04/05/25 mcg/actuation mist for inhalation (Combivent Respimat) dexamethasone 2 mg tablet 2 mg PO BID 04/05/25 04/05/25 ondansetron 4 mg disintegrating 4 mg PO Q8H PRN 04/05/25 04/05/25 tablet prednisone 20 mg tablet 40 mg PO DAILY 04/05/25 04/05/25 Previous Rx's ?Medication ?Instructions ?Recorded Inhaler, Assist Devices [Pocket 1 ea miscellaneous DIRECTED ##0 03/13/22 Chamber] albuterol sulfate 2.5 mg/3 mL 2.5 mg (3 mL) inhalation QID PRN 08/29/24 (0.083 %) solution for nebulization #90 mL albuterol sulfate 90 mcg/actuation 2 puff inhalation Q6H PRN #8.5 08/29/24 aerosol inhaler grams ipratropium 20 mcg-albuterol 100 1 puff inhalation QID #4 grams 09/12/24 mcg/actuation mist for inhalation (Combivent Respimat) Allergies Allergy/AdvReac Type Severity Reaction Status Date / Time oxycodone Allergy Mild rash Verified 04/05/25 16:38 General Stated Complaint: GenMedical AMA: 3 Review of Systems All systems reviewed & are unremarkable except as noted in HPI and below Constitutional Constitutional: Denies chills, Denies fever(s) and Denies weakness Cardiovascular Cardiovascular: Reports chest pain and Denies dyspnea Respiratory Respiratory: Denies cough and Denies dyspnea Gastrointestinal Gastrointestinal: Reports abdominal pain and Denies vomiting Neurologic Neurologic: Denies weakness Exam Const General: no acute distress Orientation: alert HENFL Head: normal to inspection Ears: external ears normal General nose exam: external nose normal Mouth: moist mucous membranes Eyes General: appearance normal, both eyes and all related structures Neck Neck: normal visual inspection Chest Chest: normal inspection of the chest Resp Effort & Inspection: normal respiratory effort and able to speak in complete sentences Auscultation: clear to auscultation bilaterally Cardio Jugular venous pressure: no JVD Rate: regular rate Heart Sounds: no murmurs GI Palpation: soft and tender Skin General skin exam: no rashes or lesions noted Neuro General: patient alert and patient oriented x3 Extrem General: normal to inspection Psych Mental Status: mental status grossly normal Course Vital Signs Vital signs: Vital Signs Temperature 36.7 C 04/05/25 16:41 Pulse 91 H 04/05/25 16:41 Respiratory Rate 18 04/05/25 16:41 Blood Pressure 137/79 04/05/25 16:41 Pulse Oximetry 95 04/05/25 16:41 Temperature 36.7 C 04/05/25 16:50 Temperature Source Oral 04/05/25 16:50 Pulse 91 H 04/05/25 16:50 Respiratory Rate 15 04/05/25 16:51 Respiratory Effort Normal 04/05/25 16:51 Respiratory Depth Normal 04/05/25 16:51 Respiratory Pattern Normal 04/05/25 16:51 Blood Pressure 137/79 04/05/25 16:50 Blood Pressure Position Sitting 04/05/25 16:50 Pulse Oximetry 95 04/05/25 16:50 Oxygen Delivery Method Room Air 04/05/25 16:50 Oxygen Flow Rate 0 04/05/25 16:50 Pain Level 8 04/05/25 16:50 Medical Decision Making 69-year-old female who is undergoing treatment for gallbladder cancer and is status postcholecystectomy comes in with right sided chest and upper abdominal pain since waking up this morning. Denies any fevers, difficulty breathing. She does have a cough but states this is at her baseline and does not feel like it is worse than normal. No vomiting. She is stable on arrival, there is no abnormalities noted on the chest wall with no crepitus. She has tenderness in the right lateral chest and right upper quadrant without guarding. Given her complaints we will check an EKG, troponins, CBC, CMP, lipase and CTA to evaluate for PE and CT abdomen pelvis as well. patient's cta shows no acute findings, does have liver mets. troponin is over 700, she is pain free, will obtain delta trop and order asa and heparin and consult [facility] Spoke with Dr. 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 they accepted but can't take her until tomorrow. Accetpting provider is Dr. Cisneros. Will discuss with hospitalist about admission until they can be transferred Differential Diagnosis Differential Diagnosis: PE, pneumonia, NSTEMI, metastasis Medical Records Medical records reviewed: Yes I reviewed the patient's medical records. Lab Data Lab results reviewed: Yes I reviewed the patient's lab results. ECG Data Attestation: I personally reviewed and interpreted this ECG (s) as follows: Prior ECG tracings: available for review Interpretation: sinus rate of 73 no stemi PFSH All Active Problems (Updated 04/05/25 @ 20:13 by Kadeem Chapa MD) Elevated troponin (Acute) Abdominal pain (Acute) Chest pain (Acute) Gallbladder cancer (Acute) Acute hypoxic respiratory failure (Acute) Borderline hyperglycemia (Chronic) Pain in left acromioclavicular joint (Acute) Tendinitis of long head of biceps brachii of left shoulder (Acute) Calcific tendinitis of left shoulder (Acute) Left rotator cuff tear (Acute 05/17/23) Acute respiratory failure with hypoxia and hypercapnia (Acute) COPD exacerbation (Acute) Hypoxemia (Acute) Tubular adenoma of colon (Acute) Anemia (Chronic) SOB (shortness of breath) (Acute) COPD (chronic obstructive pulmonary disease) (Chronic) Tobacco use disorder (Chronic) Asthma, intermittent (Acute) Chronic pain (Chronic) Headache (Acute) Fibrocystic breast disease (Acute) GERD (gastroesophageal reflux disease) (Chronic) Heart murmur (Acute) Screening for colon cancer (Acute) Medical History Chest pain Per pt. states she has not had chest pain in years, and it was nothing when she had it years ago. Surgical History History of laparoscopic appendectomy Hx of section Hx of hysterectomy Hx of colonoscopy (~04/2021) Social History Smoking/Tobacco Use Status: Former Tobacco Use tobacco type: cigarettes Quit Date: 09/09/21 Tobacco: How many years used: 45 Smoking risk assessment performed?: Yes Alcohol Intake: never Drug use: Never Substance use type: does not use Housing: apartment Do you feel safe at home: Yes Do you feel safe in your relationship?: Yes
[2025-04-05 17:13] LABS: Abs Immature Grans 0.02 10^3/uL (0.0-0.06); HCT 27.8 % (36.0-46.0); HGB 8.8 g/dL (11.2-15.7); Immature Grans % 0.3 %; MCH 31.0 pg (27.0-33.0); MCHC 31.7 % (32.0-36.0); MCV 98 fL (80-95); MPV 10.1 fL (8.0-11.0); Platelet Count 103 10^3/uL (130-400); RBC 2.84 10^6/uL (3.93-5.22); RDW 14.6 % (11.7-14.6); RDW-SD 51.3 fL; WBC 7.20 10^3/uL (4.4-10.8)
[2025-04-05] MEDS: Normal Saline - Diluent 50 ML VIAL IJ (17:17)
[2025-04-05] MEDS: Omnipaque 350 MG/ML 100 ML BTL IJ (17:18)
[2025-04-05] MEDS: Normal Saline Flush 10 ML SYR IVP (17:18)
[2025-04-05 17:55] LABS: INR 1.0 (0.9-1.1); PTT Activated 26.1 sec (20.6-30.2); Prothrombin Time 10.5 sec (9.1-11.1)
[2025-04-05 17:59] LABS: ALT 37 U/L (14-59); AST 19 U/L (15-37); Albumin 2.2 g/dL (3.4-5.0); Alkaline Phosphatase 156 U/L (46-116); Anion Gap 5.4 mmol/L (3-11); BUN 19 mg/dL (7-18); Bilirubin, Direct 0.1 mg/dL (0.0-0.2); Bilirubin, Total 0.3 mg/dL (0.2-1.0); CO2 27.6 mmol/L (21.0-32.0); Calcium 8.3 mg/dL (8.5-10.1); Chloride 102 mmol/L (98-107); Estimated GFR 68.77 (mL/min/1.73m2); Glucose 132 mg/dL (74-106); Lipase 55 U/L (<78); Magnesium 1.8 mg/dL (1.8-2.4); Potassium 3.9 mmol/L (3.5-5.1); Sodium 135 mmol/L (136-145); Total Protein 5.4 g/dL (6.4-8.2)
[2025-04-05 18:01] LABS: Troponin I 717 ng/L (<or=51)
[2025-04-05 18:20] LABS: COVID-19 PCR Negative (Negative); RSV PCR Negative (Negative)
[2025-04-05] MEDS: Heparin in 0.45% NaCl 25,000 UNIT/250 ML BAG 7.5 UNIT IVINF (18:24)
[2025-04-05] MEDS: Aspirin 325 MG TAB PO (18:24)
[2025-04-05 18:29] LABS: Troponin I 742 ng/L (<or=51)
[2025-04-05 19:16] LABS: Glucose Negative (Negative)
[2025-04-05 19:22] LABS: C & S Indicated? No; RBC >50 HPF (0-2); WBC Negative HPF (0-5)
--- NOTE | 2025-04-05 19:59 | HPE_ITS ---
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 [facility] cancer care CT abdomen now showing liver mets and central lymphadenopathy not seen in November (3) COPD (chronic obstructive pulmonary disease): Status: Chronic Assessment and plan: Hold home regimen PRN duonebs (4) Tobacco use disorder: Status: Chronic Assessment and plan: PRN nicotine patch (5) Macrocytic anemia: Status: Acute Assessment and plan: Low hemoglobin 8.8, low hematocrit 27.8, elevated MCV 98 Patient gets B12 and folate supplementation during chemotherapy (6) Thrombocytopenia: Status: Chronic Assessment and plan: Platelets 103, improved from Apr 01 83 Secondary to chemotherapy History of Present Illness History of Present Illness Chief Complaint: chest pain Narrative: Shakira Burrows is a 69 year old woman presenting April 05 with about 12 hours of worsening chest and abdominal pain. She was diagnosed with gallbladder cancer in December after November cholecystectomy. Ms. Burrows reports today that she has sharp, moderately intense pain on the right side of her chest and in her upper abdomen. She has a chronic cough that predates her gallbladder treatment. She denies shortness of breath, headache, N/V/D. In the ED she was mildly tachycardic 91, vitals otherwise unremarkable. EKG showed sinus rhythm with low voltage in precordial leads. Troponin elevated 717->742. CBC showed macrocytic anemia and thrombocytopenia. Low protein and albumin. CT chest abdomen pelvis showed likely liver mets and lymphadenopathy. [facility] cardiology was consulted; Dr Head advised likely myocarditis secondary to checkpoint inhibitor treatment, and advised holding DAPT. Patient is accepted for April [address] Cisneros. 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) Elevated troponin (Acute) Abdominal pain (Acute) Chest pain (Acute) Gallbladder cancer (Acute) Acute hypoxic respiratory failure (Acute) Borderline hyperglycemia (Chronic) Pain in left acromioclavicular joint (Acute) Tendinitis of long head of biceps brachii of left shoulder (Acute) Calcific tendinitis of left shoulder (Acute) Left rotator cuff tear (Acute 05/17/23) Acute respiratory failure with hypoxia and hypercapnia (Acute) COPD exacerbation (Acute) Hypoxemia (Acute) Tubular adenoma of colon (Acute) Anemia (Chronic) SOB (shortness of breath) (Acute) COPD (chronic obstructive pulmonary disease) (Chronic) Tobacco use disorder (Chronic) Asthma, intermittent (Acute) Chronic pain (Chronic) Headache (Acute) Fibrocystic breast disease (Acute) GERD (gastroesophageal reflux disease) (Chronic) Heart murmur (Acute) Screening for colon cancer (Acute) Medical History Chest pain Per pt. states she has not had chest pain in years, and it was nothing when she had it years ago. Surgical History History of laparoscopic appendectomy Hx of section Hx of hysterectomy Hx of colonoscopy (~04/2021) Social History Smoking/Tobacco Use Status: Former Tobacco Use tobacco type: cigarettes Quit Date: 09/09/21 Tobacco: How many years used: 45 Smoking risk assessment performed?: Yes Alcohol Intake: never Drug use: Never Substance use type: does not use Housing: apartment Do you feel safe at home: Yes Do you feel safe in your relationship?: Yes Meds Allergies and Home Medications Allergies Allergy/AdvReac Type Severity Reaction Status Date / Time oxycodone Allergy Mild rash Verified 04/05/25 16:38 Home Medications ?Medication ?Instructions ?Recorded ?Confirmed ?Type Inhaler, Assist Devices [Pocket 1 ea miscellaneous DIRECTED ##0 03/13/22 04/05/25 Rx Chamber] albuterol sulfate 2.5 mg/3 mL 2.5 mg (3 mL) inhalation QID PRN 08/29/24 04/05/25 Rx (0.083 %) solution for nebulization #90 mL albuterol sulfate 90 mcg/actuation 2 puff inhalation Q 6H PRN #8.5 08/29/24 04/05/25 Rx aerosol inhaler grams fluticasone propionate 115 1 inh inhalation BID 04/05/25 History mcg-salmeterol 21 mcg/actuation HFA inhaler (Advair HFA) umeclidinium 62.5 mcg/actuation 1 inh inhalation DAILY 08/29/24 04/05/25 History blister powder for inhalation (Incruse Ellipta) ipratropium 20 mcg-albuterol 100 1 puff inhalation QID #4 grams 09/12/24 04/05/25 Rx mcg/actuation mist for inhalation (Combivent Respimat) dexamethasone 2 mg tablet 2 mg PO BID 04/05/25 5 History ondansetron 4 mg disintegrating 4 mg PO Q8H PRN 04/05/25 History tablet prednisone 20 mg tablet 40 mg PO DAILY 04/05/2503/09 History Exam Narrative Exam Narrative: General: This is a pleasant woman in no distress HEENT: Normocephalic, atraumatic CV: RRR Resp: CTAB Abd: soft, NTND MSK: voluntary motion x4 Neuro: awake, alert, no focal deficits Results Labs 04/05/25 17:02 04/05/25 17:34 Labs: Laboratory Results - last 24 hr 04/05/25 04/05/25 04/05/25 17:02 17:32 17:34 WBC 7.20 RBC 2.84 L Hgb 8.8 L Hct 27.8 L MCV 98 H MCH 31.0 MCHC 31.7 L RDW 14.6 Plt Count 103 L MPV 10.1 Immature Gran % 0.3 Neutrophils % 73.9 Lymphocytes % 16.5 Monocytes % 7.1 Eosinophils % 2.1 Basophils % 0.1 Nucleated RBC % 0.0 Absolute Neutrophils 5.32 Absolute Lymphocytes 1.19 L Absolute Monocytes 0.51 Absolute Eosinophils 0.15 Absolute Basophils 0.01 PT Cancelled 10.5 INR Cancelled 1.0 APTT Cancelled 26.1 Sodium Cancelled 135 L Potassium Cancelled 3.9 Chloride Cancelled 102 Carbon Dioxide Cancelled 27.6 Anion Gap Cancelled 5.4 BUN Cancelled 19 H Creatinine Cancelled 0.9 Est GFR (CKD-EPI 2020) Cancelled 68.77 Glucose Cancelled 132 H Calcium Cancelled 8.3 L Magnesium Cancelled 1.8 Total Bilirubin Cancelled 0.3 Conjugated Bilirubin Cancelled 0.1 AST Cancelled 19 ALT Cancelled 37 Alkaline Phosphatase Cancelled 156 H Troponin I Cancelled 717 H* Total Protein Cancelled 5.4 L Albumin Cancelled 2.2 L Lipase Cancelled 55 Urine Color Urine Clarity Urine pH Ur Specific [place] Urine Protein Urine Ketones Urine Blood Urine Nitrite Urine Bilirubin Urine Urobilinogen Ur Leukocyte Esterase Urine RBC Urine WBC Ur Epithelial Cells Urine Crystals Urine Bacteria Urine Mucus Ur Culture Indicated? Urine Glucose COVID-19 Source Nasopharynx SARS-CoV-2 (PCR) Negative Influenza Type A (PCR) Negative Influenza Type B (PCR) Negative RSV (PCR) Negative 04/05/25 04/05/25 18:05 19:08 WBC RBC Hgb Hct MCV MCH MCHC RDW Plt Count MPV Immature Gran % Neutrophils % Lymphocytes % Monocytes % Eosinophils % Basophils % Nucleated RBC % Absolute Neutrophils Absolute Lymphocytes Absolute Monocytes Absolute Eosinophils Absolute Basophils PT INR APTT Sodium Potassium Chloride Carbon Dioxide Anion Gap BUN Creatinine Est GFR (CKD-EPI 2020) Glucose Calcium Magnesium Total Bilirubin Conjugated Bilirubin AST ALT Alkaline Phosphatase Troponin I 742 H* Total Protein Albumin Lipase Urine Color Yellow Urine Clarity Clear Urine pH 6.5 Ur Specific [place] <= 1.005 Urine Protein 30 H Urine Ketones Negative Urine Blood Large H Urine Nitrite Negative Urine Bilirubin Negative Urine Urobilinogen 0.2 Ur Leukocyte Esterase Negative Urine RBC >50 H Urine WBC Negative Ur Epithelial Cells Rare Urine Crystals Negative Urine Bacteria Negative Urine Mucus Negative Ur Culture Indicated? No Urine Glucose Negative COVID-19 Source SARS-CoV-2 (PCR) Influenza Type A (PCR) Influenza Type B (PCR) RSV (PCR) Last Vital Signs Temp 36.7 C 04/05/25 16:50 Pulse 91 H 04/05/25 16:50 Resp 15 04/05/25 16:51 BP 137/64 04/05/25 19:47 Pulse Ox 95 04/05/25 16:50 Time Spent Time spent with Patient: 40-54 minutes Time was spent: preparing to see the patient(eg.review tests), obtaining and/or reviewing separately otained hiistory, ordering medications,tests, procedures, referring, communicating with other health physician locums urgent care, indepentently interpreting results, counseling the patient and care coordination
[2025-04-05 20:36] LABS: Troponin I 659 ng/L (<or=51)
[2025-04-06] VITALS (86 sets, daily range): BP systolic 115–123; BP diastolic 49–60; PULSE 49–110; RESP 16–20; TEMP 36.4–37.3; O2SAT 95–98
[2025-04-06 00:55] LABS: PTT Activated 54.8 sec (20.6-30.2)
--- NOTE | 2025-04-06 01:06 | NUR.NOTE ---
Per protocol, a PTT was drawn at 6 hours post initiation of Heparin, at 54.8 the level is considered within the therapeutic range and indicates no change in Heparin rate, FPJ
[2025-04-06 06:16] LABS: Abs Immature Grans 0.02 10^3/uL (0.0-0.06); HCT 25.3 % (36.0-46.0); HGB 8.1 g/dL (11.2-15.7); Immature Grans % 0.3 %; MCH 31.5 pg (27.0-33.0); MCHC 32.0 % (32.0-36.0); MCV 98 fL (80-95); MPV 10.2 fL (8.0-11.0); Platelet Count 118 10^3/uL (130-400); RBC 2.57 10^6/uL (3.93-5.22); RDW 14.9 % (11.7-14.6); RDW-SD 53.2 fL; WBC 6.47 10^3/uL (4.4-10.8)
[2025-04-06 06:45] LABS: INR 1.0 (0.9-1.1); Prothrombin Time 10.2 sec (9.1-11.1)
[2025-04-06 06:48] LABS: ALT 35 U/L (14-59); AST 20 U/L (15-37); Albumin 2.3 g/dL (3.4-5.0); Alkaline Phosphatase 156 U/L (46-116); Anion Gap 5.5 mmol/L (3-11); BUN 18 mg/dL (7-18); Bilirubin, Total 0.3 mg/dL (0.2-1.0); CO2 28.5 mmol/L (21.0-32.0); Calcium 8.0 mg/dL (8.5-10.1); Chloride 105 mmol/L (98-107); Estimated GFR 92.98 (mL/min/1.73m2); Glucose 112 mg/dL (74-106); Magnesium 1.9 mg/dL (1.8-2.4); Potassium 4.6 mmol/L (3.5-5.1); Sodium 139 mmol/L (136-145); Total Protein 5.7 g/dL (6.4-8.2)
[2025-04-06 06:54] LABS: Troponin I 396 ng/L (<or=51)
[2025-04-06 06:57] LABS: PTT Activated 47.6 sec (20.6-30.2)
[2025-04-06 07:03] LABS: Hypochromasia 2+
[2025-04-06 12:37] LABS: PTT Activated 64.6 sec (20.6-30.2)
--- NOTE | 2025-04-06 13:45 | W.PC.ACHO ---
Registration Status: ADM DAVINA Primary Language: Preferred Language: Uzbek ED Information & Data Chief Complaint GenMedical 04/05/25 17:04 Triage Note Patient having pain under 04/05/25 16:41 the right breast which started today. Patient is currently being treated for gallbladder cancer with metastasis to the liver Medical / Surgical History (Last Reviewed 09/12/24 @ 04:20 by Temo Draper) Cholecystitis Pneumonia Pneumonia Acute hypoxic respiratory failure Chest pain (Last Reviewed 09/12/24 @ 04:20 by Temo Draper) History of laparoscopic appendectomy Hx of section Hx of hysterectomy Hx of colonoscopy (~04/2021) Most Recent Vital Signs Temperature 36.7 C 04/05/25 16:50 Temperature Source Oral 04/05/25 16:50 Pulse 91 H 04/05/25 16:50 Pulse 68 04/06/25 13:30 Respiratory Rate 15 04/05/25 16:51 Respiratory Effort Normal 04/05/25 16:51 Respiratory Depth Normal 04/05/25 16:51 Respiratory Pattern Normal 04/05/25 16:51 Blood Pressure 121/60 04/06/25 06:10 Blood Pressure Mean 80 04/06/25 06:10 Blood Pressure Position Sitting 04/05/25 16:50 Pulse Oximetry 95 04/05/25 16:50 Oxygen Delivery Method Room Air 04/05/25 16:50 Oxygen Flow Rate 0 04/05/25 16:50 Pain Level 8 04/05/25 16:50 Allergies oxycodone Allergy (Mild, Verified 04/05/25 16:38) rash Active Medications Generic Name Dose Route Start Last Admin Trade Name Freq PRN Reason Stop Dose Admin Heparin Sodium/Sodium Chloride 25,000 unit in 250 mls @ 7.5 mls/hr 04/05/25 18:15 04/06/25 07:07 IVINF 850 units/hr INFUSION RIVAS 8.5 mls/hr Protocol Titration 750 UNITS/HR Iohexol 100 ml 04/05/25 17:15 04/05/25 17:18 Omnipaque 350 Mg/Ml 100 Ml Btl IJ 05/05/25 23:59 70 ml DIRECTED RIVAS Administration Sodium Chloride 0 ml 04/05/25 17:09 04/05/25 17:18 Normal Saline Flush 10 Ml Syr IVP 10 ml PRN PRN Administration Sodium Chloride 50 ml 04/05/25 17:15 04/05/25 17:17 Normal Saline - Diluent 50 Ml Vial IJ 50 ml DIRECTED RIVAS Administration IV IV Catheter Type [Right Peripheral IV Antecubital] IV Catheter Gauge [Right 18 Antecubital] Diet Orders Category Date Time Status DIET [Heart Healthy Eating] [DIET] Nutrition 04/06/25 Lunch Active Diagnostics 04/06/25 04/06/25 04/06/25 Range/Units 18:16 12:16 06:03 WBC 6.47 (4.4-10.8) 10^3/uL RBC 2.57 L (3.93-5.22) 10^6/uL Hgb 8.1 L (11.2-15.7) g/dL Hct 25.3 L (36.0-46.0) % MCV 98 H (80-95) fL MCH 31.5 (27.0-33.0) pg MCHC 32.0 (32.0-36.0) % RDW 14.9 H (11.7-14.6) % Plt Count 118 L (130-400) 10^3/uL MPV 10.2 (8.0-11.0) fL Immature Gran % 0.3 % Neutrophils % 78.8 % Lymphocytes % 13.4 % Monocytes % 7.0 % Eosinophils % 0.3 % Basophils % 0.2 % Nucleated RBC % 0.0 (0.0-0.3) % Absolute Neutrophils 5.10 (1.2-6.7) 10^3/uL Absolute Lymphocytes 0.87 L (1.2-3.4) 10^3/uL Absolute Monocytes 0.45 (0.1-0.8) 10^3/uL Absolute Eosinophils 0.02 (0.0-0.7) 10^3/uL Absolute Basophils 0.01 (0.0-0.2) 10^3/uL RBC Morphology See Below Hypochromasia 2+ PT 10.2 INR 1.0 APTT Pending 64.6 H 47.6 H Sodium 139 Potassium 4.6 Chloride 105 Carbon Dioxide 28.5 Anion Gap 5.5 BUN 18 Creatinine 0.7 Est GFR (CKD-EPI 2020) 92.98 Glucose 112 H Calcium 8.0 L Magnesium 1.9 Total Bilirubin 0.3 Conjugated Bilirubin AST 20 ALT 35 Alkaline Phosphatase 156 H Troponin I 396 H* Total Protein 5.7 L Albumin 2.3 L Lipase Urine Color (Yellow) Urine Clarity (Clear) Urine pH (5-8) Ur Specific [place] (1.005-1.025) Urine Protein (Neg-Trace) mg/dL Urine Ketones (Negative) mg/dL Urine Blood (Negative) Urine Nitrite (Negative) Urine Bilirubin (Negative) Urine Urobilinogen (Up to 0.2) mg/dL Ur Leukocyte Esterase (Negative) Urine RBC (0-2) HPF Urine WBC (0-5) HPF Ur Epithelial Cells (Negative) HPF Urine Crystals (Negative) HPF Urine Bacteria (Negative) HPF Urine Mucus (Negative) Ur Culture Indicated? Urine Glucose (Negative) mg/dL COVID-19 Source SARS-CoV-2 (PCR) (Negative) Influenza Type A (PCR) (Negative) Influenza Type B (PCR) (Negative) RSV (PCR) (Negative) 04/06/25 04/05/25 04/05/25 Range/Units 00:30 20:05 19:08 WBC (4.4-10.8) 10^3/uL RBC (3.93-5.22) 10^6/uL Hgb (11.2-15.7) g/dL Hct (36.0-46.0) % MCV (80-95) fL MCH (27.0-33.0) pg MCHC (32.0-36.0) % RDW (11.7-14.6) % Plt Count (130-400) 10^3/uL MPV (8.0-11.0) fL Immature Gran % % Neutrophils % % Lymphocytes % % Monocytes % % Eosinophils % % Basophils % % Nucleated RBC % (0.0-0.3) % Absolute Neutrophils (1.2-6.7) 10^3/uL Absolute Lymphocytes (1.2-3.4) 10^3/uL Absolute Monocytes (0.1-0.8) 10^3/uL Absolute Eosinophils (0.0-0.7) 10^3/uL Absolute Basophils (0.0-0.2) 10^3/uL RBC Morphology Hypochromasia PT INR APTT 54.8 H Sodium Potassium Chloride Carbon Dioxide Anion Gap BUN Creatinine Est GFR (CKD-EPI 2020) Glucose Calcium Magnesium Total Bilirubin Conjugated Bilirubin AST ALT Alkaline Phosphatase Troponin I 659 H* Total Protein Albumin Lipase Urine Color Yellow (Yellow) Urine Clarity Clear (Clear) Urine pH 6.5 (5-8) Ur Specific [place] <= 1.005 (1.005-1.025) Urine Protein 30 H (Neg-Trace) mg/dL Urine Ketones Negative (Negative) mg/dL Urine Blood Large H (Negative) Urine Nitrite Negative (Negative) Urine Bilirubin Negative (Negative) Urine Urobilinogen 0.2 (Up to 0.2) mg/dL Ur Leukocyte Esterase Negative (Negative) Urine RBC >50 H (0-2) HPF Urine WBC Negative (0-5) HPF Ur Epithelial Cells Rare (Negative) HPF Urine Crystals Negative (Negative) HPF Urine Bacteria Negative (Negative) HPF Urine Mucus Negative (Negative) Ur Culture Indicated? No Urine Glucose Negative (Negative) mg/dL COVID-19 Source SARS-CoV-2 (PCR) (Negative) Influenza Type A (PCR) (Negative) Influenza Type B (PCR) (Negative) RSV (PCR) (Negative) 04/05/25 04/05/25 04/05/25 Range/Units 18:05 17:34 17:32 WBC (4.4-10.8) 10^3/uL RBC (3.93-5.22) 10^6/uL Hgb (11.2-15.7) g/dL Hct (36.0-46.0) % MCV (80-95) fL MCH (27.0-33.0) pg MCHC (32.0-36.0) % RDW (11.7-14.6) % Plt Count (130-400) 10^3/uL MPV (8.0-11.0) fL Immature Gran % % Neutrophils % % Lymphocytes % % Monocytes % % Eosinophils % % Basophils % % Nucleated RBC % (0.0-0.3) % Absolute Neutrophils (1.2-6.7) 10^3/uL Absolute Lymphocytes (1.2-3.4) 10^3/uL Absolute Monocytes (0.1-0.8) 10^3/uL Absolute Eosinophils (0.0-0.7) 10^3/uL Absolute Basophils (0.0-0.2) 10^3/uL RBC Morphology Hypochromasia PT 10.5 INR 1.0 APTT 26.1 Sodium 135 L Potassium 3.9 Chloride 102 Carbon Dioxide 27.6 Anion Gap 5.4 BUN 19 H Creatinine 0.9 Est GFR (CKD-EPI 2020) 68.77 Glucose 132 H Calcium 8.3 L Magnesium 1.8 Total Bilirubin 0.3 Conjugated Bilirubin 0.1 AST 19 ALT 37 Alkaline Phosphatase 156 H Troponin I 742 H* 717 H* Total Protein 5.4 L Albumin 2.2 L Lipase 55 Urine Color (Yellow) Urine Clarity (Clear) Urine pH (5-8) Ur Specific [place] (1.005-1.025) Urine Protein (Neg-Trace) mg/dL Urine Ketones (Negative) mg/dL Urine Blood (Negative) Urine Nitrite (Negative) Urine Bilirubin (Negative) Urine Urobilinogen (Up to 0.2) mg/dL Ur Leukocyte Esterase (Negative) Urine RBC (0-2) HPF Urine WBC (0-5) HPF Ur Epithelial Cells (Negative) HPF Urine Crystals (Negative) HPF Urine Bacteria (Negative) HPF Urine Mucus (Negative) Ur Culture Indicated? Urine Glucose (Negative) mg/dL COVID-19 Source Nasopharynx SARS-CoV-2 (PCR) Negative (Negative) Influenza Type A (PCR) Negative (Negative) Influenza Type B (PCR) Negative (Negative) RSV (PCR) Negative (Negative) 04/05/25 Range/Units 17:02 WBC 7.20 (4.4-10.8) 10^3/uL RBC 2.84 L (3.93-5.22) 10^6/uL Hgb 8.8 L (11.2-15.7) g/dL Hct 27.8 L (36.0-46.0) % MCV 98 H (80-95) fL MCH 31.0 (27.0-33.0) pg MCHC 31.7 L (32.0-36.0) % RDW 14.6 (11.7-14.6) % Plt Count 103 L (130-400) 10^3/uL MPV 10.1 (8.0-11.0) fL Immature Gran % 0.3 % Neutrophils % 73.9 % Lymphocytes % 16.5 % Monocytes % 7.1 % Eosinophils % 2.1 % Basophils % 0.1 % Nucleated RBC % 0.0 (0.0-0.3) % Absolute Neutrophils 5.32 (1.2-6.7) 10^3/uL Absolute Lymphocytes 1.19 L (1.2-3.4) 10^3/uL Absolute Monocytes 0.51 (0.1-0.8) 10^3/uL Absolute Eosinophils 0.15 (0.0-0.7) 10^3/uL Absolute Basophils 0.01 (0.0-0.2) 10^3/uL RBC Morphology Hypochromasia PT Cancelled INR Cancelled APTT Cancelled Sodium Cancelled Potassium Cancelled Chloride Cancelled Carbon Dioxide Cancelled Anion Gap Cancelled BUN Cancelled Creatinine Cancelled Est GFR (CKD-EPI 2020) Cancelled Glucose Cancelled Calcium Cancelled Magnesium Cancelled Total Bilirubin Cancelled Conjugated Bilirubin Cancelled AST Cancelled ALT Cancelled Alkaline Phosphatase Cancelled Troponin I Cancelled Total Protein Cancelled Albumin Cancelled Lipase Cancelled Urine Color (Yellow) Urine Clarity (Clear) Urine pH (5-8) Ur Specific [place] (1.005-1.025) Urine Protein (Neg-Trace) mg/dL Urine Ketones (Negative) mg/dL Urine Blood (Negative) Urine Nitrite (Negative) Urine Bilirubin (Negative) Urine Urobilinogen (Up to 0.2) mg/dL Ur Leukocyte Esterase (Negative) Urine RBC (0-2) HPF Urine WBC (0-5) HPF Ur Epithelial Cells (Negative) HPF Urine Crystals (Negative) HPF Urine Bacteria (Negative) HPF Urine Mucus (Negative) Ur Culture Indicated? Urine Glucose (Negative) mg/dL COVID-19 Source SARS-CoV-2 (PCR) (Negative) Influenza Type A (PCR) (Negative) Influenza Type B (PCR) (Negative) RSV (PCR) (Negative) Intake and Output - 24 Hour Total 04/05/25 16:36 thru 04/06/25 07:07 Intake Total 105.375 Balance 105.375 Weight 63.503 kg Intake: IV 105.375 Falls Risk Assessment History of Falls No History 04/05/25 17:07 Contributing Factors No Factors 04/05/25 17:07 Ambulatory Aids Independent 04/05/25 17:07 Tubes/Lines W/no contributing factors 04/05/25 17:07 Gait Evaluation No gait disturbance 04/05/25 17:07 Cognition No cognitive impairment 04/05/25 17:07 Fall Total Score 10 04/05/25 17:07 Level of Risk Standard/Low Risk 04/05/25 17:07 Problems (Last Reviewed 09/12/24 @ 04:20 by Temo Draper) Thrombocytopenia (Chronic) Macrocytic anemia (Acute) 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) Elevated troponin (Acute) Abdominal pain (Acute) Chest pain (Acute) Gallbladder cancer (Acute) COPD (chronic obstructive pulmonary disease) (Chronic) Tobacco use disorder (Chronic) Notes 04/06/25 01:06 Nursing Notes by Drake Warren Per protocol, a PTT was drawn at 6 hours post initiation of Heparin, at 54.8 the level is considered within the therapeutic range and indicates no change in Heparin rate, FPJ Initialized on 04/06/25 01:06 - END OF NOTE v v v v v v v v v Sending and/or Receiving Nurses: Please use comment section below to note any information pertinent to the patient hand-off not included above. Information / Comments: A&O x4, able to make needs known, independent, came in for increased abdomnial and chest pain started yesterday, hx of gallbladder cancer with mets to the liver, Elevated troponins however they are trending down, last troponin was 396, on a heparin drip 8.5ml/hr, last ptt was 64.6, pt is to be transfered to [facility]. Bed pending. Report received from: Sandy Stark RN in ER at 1343
--- NOTE | 2025-04-06 14:00 | NUR.NOTE ---
Patient report given to receiving nurse. Pt transferred to med surg Room 210.
--- NOTE | 2025-04-06 16:34 | INITIAL_ITS ---
Date of service: 04/06/25 Time of Service: 16:34 Care Management Initial Assmt Initial Assessment Reason for Hospitalization: chest pain Functional Status/Living Situation Patient Presentation: Shakira was sitting up on the edge of her bed when CM met with her. She stated that she is still having some pain, and that she requested some tylenol from her RN recently. Per report, Shakira has been accepted at [facility] [place], awaiting bed availability. She stated that she was held in the ED overnight (due to capacity), and was happy to be on med/surge now, and able to eat. She is looking forward to transferring, and hopes that it will happen tonight. She reported that she lives in [place] in a four generation home; she lives in her own apartment/space within the home, but has a lot of family support when needed. She stated that she is independent at baseline, and plans to return home after her stay at [facility]. CM will continue to follow. Town of Residence: [place] Resides with: Child (lives with multiple family members; 4 generation home) Natural Supports: daughter, Radha, along with many other family members Employment Status: Retired Instrumental Activities of Daily Living (ADLs): Independent Medications Medication Management: No Issues/Barriers identified Advance Directives Advance Directives: Do you have an Advance Directive: Y , 19:41 AD On File at [facility]: Y 04/05/25, 19:41 Date Asked 04/05/25 04/05/25, 19:41 AD Date Reviewed 04/05/25 04/05/25, 19:41 COLST On File at [facility] No 08/29/24, 17:33 COLST Date Scanned Code Status Resuscitation Status Full Code Insurance Coverage/Financial Issues Insurance: [facility] Care Team Visit Care Team Role Provider Type Mathieu Gottlieb MD [facility] STAFF PHYSICIAN Kirstie Vee Primary Care Provider NURSE PRACTITIONER Kadeem Chapa MD Emergency Provider [facility] STAFF PHYSICIAN Corey Romo MD Admit Provider [facility] STAFF PHYSICIAN Attending Provider Discharge Potential Discharge Needs: Other (acute transfer to [facility]) Anticipated Barriers to Discharge: Bed availability Patient/Family Education Needs: Review discharge instructions, discuss Ask Me Three Transportation: EMS Plan: Shakira has been accepted for transfer to [facility], pending bed availability. She will transport via EMS, coordinated by RN forest supervisor, when a bed becomes available. She will follow up with her PCP and her discharge plan of care. CM will contine to follow. Social Determinants of Health Screening Social Determinants of health last assessed in clinic: 04/06/25 Will the Patient Participate in the Screening?: Yes Do you worry about having a steady place to live?: no Problems where you live: no known problems In the past 12 months, have you had to go without electric, gas, oil or water in your home?: no 1. Within the past 12 months, we worried whether our food would run out before we got money to buy more.: Don't know/refused 2. Within the past 12 months, the food we bought just didn't last and we didn't have money to get more.: Don't know/refused Has lack of transportation kept you from medical appointments or from doing things needed for daily living?: no Has anyone in your life made you feel unsafe or unsupported?: no How hard is it for you to pay for the very basics like food, housing, medical care, and heating? 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) Elevated troponin (Acute) Abdominal pain (Acute) Chest pain (Acute) Gallbladder cancer (Acute) Acute hypoxic respiratory failure (Acute) Borderline hyperglycemia (Chronic) Pain in left acromioclavicular joint (Acute) Tendinitis of long head of biceps brachii of left shoulder (Acute) Calcific tendinitis of left shoulder (Acute) Left rotator cuff tear (Acute 05/17/23) Acute respiratory failure with hypoxia and hypercapnia (Acute) COPD exacerbation (Acute) Hypoxemia (Acute) Tubular adenoma of colon (Acute) Anemia (Chronic) SOB (shortness of breath) (Acute) COPD (chronic obstructive pulmonary disease) (Chronic) Tobacco use disorder (Chronic) Asthma, intermittent (Acute) Chronic pain (Chronic) Headache (Acute) Fibrocystic breast disease (Acute) GERD (gastroesophageal reflux disease) (Chronic) Heart murmur (Acute) Screening for colon cancer (Acute) Medical History Chest pain Per pt. states she has not had chest pain in years, and it was nothing when she had it years ago. Surgical History History of laparoscopic appendectomy Hx of section Hx of hysterectomy Hx of colonoscopy (~04/2021) Social History Smoking/Tobacco Use Status: Former Tobacco Use tobacco type: cigarettes Quit Date: 09/09/21 Tobacco: How many years used: 45 Smoking risk assessment performed?: Yes Alcohol Intake: never Drug use: Never Substance use type: does not use Housing: house Do you feel safe at home: Yes Do you feel safe in your relationship?: Yes
[2025-04-06] MEDS: Heparin in 0.45% NaCl 25,000 UNIT/250 ML BAG 8.5 UNIT IVINF (19:12)
[2025-04-06 19:26] LABS: PTT Activated 42.3 sec (20.6-30.2)
[2025-04-06] MEDS: Acetaminophen 325 MG TAB 650 MG PO (19:37)
--- NOTE | 2025-04-06 21:19 | DSE_ITS ---
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: Status: Acute (2) Gallbladder cancer: Status: Acute (3) COPD (chronic obstructive pulmonary disease): Status: Chronic (4) Tobacco use disorder: Status: Chronic (5) Macrocytic anemia: Status: Acute (6) Thrombocytopenia: Status: Chronic Discharge Plan Disposition Patient Disposition: Transfer-Acute Inpatient Care Specific Acute Inpt Facility: [facility] Condition: Stable Discharge Details Reason For Visit: Chest Pain Admit Date/Time: 04/05/25 19:56 Admit Provider: Corey Romo Attending Provider: Corey Romo Primary Care Provider: Kirstie Vee Hospital Course Hospital Course: 69 year old woman with 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 ED evaluation revealed elevated troponin at 717 up to 742. Her EKG did not look ischemic. SHe was started on a heparin drip after discussion with [facility] cardiology, who accepted the patient pending bed availability. CT C/A/P showed metastatic disease but not cardiac or pulmonary pathology. 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 Her symptoms improved with her troponin decreasing to 396 the next morning prior to transfer. Macrocytic anemia and thrombocytopenia were noted, which have been present since she was treated with chemotherapy. She was considering stopping aggressive care and focusing care on comfort based on her poor reactions to the therapies thus far. She will discuss any additional options with oncology before deciding about options such as hospice. She would like to avoid spending the rest of her time in a hospital. Home Meds and New Rx's Prescriptions: No Action Combivent Respimat 20-100 mcg/actuation mist 1 puff inhalation QID Qty: 4 0RF Rx Instructions: space evenly during waking hours prednisone 20 mg tablet 40 mg PO DAILY Patient Comments: TAKE TWO TABLETS BY MOUTH EVERY DAY dexamethasone 2 mg tablet 2 mg PO BID Patient Comments: TAKE 1 TABLET BY MOUTH TWICE DAILY WITH MEALS. TAKE IN THE MORNING AND EARLY AFTERNOON. DO NOT TAKE AT NIGHT ondansetron 4 mg tablet,disintegrating 4 mg PO Q8H PRN Patient Comments: DISSOLVE 1 TABLET ON THE TONGUE EVERY 8 HOURS NEEDED FOR NAUSEA Inhaler, Assist Devices [Pocket Chamber] 1 ea miscellaneous DIRECTED Qty: 0 0RF fluticasone propion-salmeterol [Advair HFA] 115-21 mcg/actuation HFA aerosol inhaler 1 inh inhalation BID Incruse Ellipta 62.5 mcg/actuation blister with device 1 inh inhalation DAILY albuterol sulfate 90 mcg/actuation HFA aerosol inhaler 2 puff inhalation Q6H PRNQty: 8.5 3RF albuterol sulfate 2.5 mg /3 mL (0.083 %) solution for nebulization 2.5 mg inhalation QID PRNQty: 90 3RF Discharge Instructions Activity:: Activity as Tolerated Equipment/Supplies:: No Equipment Needed Diet:: As Tolerated Discharge Data Discharge Date/Time-TO BE ENTERED AT DEPARTURE: 04/06/25 23:52 DS: Summary Time Spent with Patient providing and/or coordinating discharge services: Greater than 30 minutes Status at Discharge Functional status at discharge: independent ambulation Overall status at discharge: patient is not back to baseline Mental Status: mental status grossly normal Speech and Movement: speech and movement normal Mood: congruent mood Affect: normal affect Exam Narrative Exam Narrative: General: This is a pleasant woman in no distress HEENT: Normocephalic, atraumatic CV: RRR, no m/g Resp: CTAB Abd: soft, non-distended, mild RUQ tenderness, no guarding Ext: no c/c/e skin: no rash/bruise/petichea Psych Mental Status: mental status grossly normal Speech and Movement: speech and movement normal Mood: congruent mood Affect: normal affect DS: Data Vitals/I&O Vitals and I&O: Vital Signs Temperature 37.3 C 04/06/25 17:18 Temperature Source Tympanic 04/06/25 17:18 Pulse 75 04/06/25 17:18 Pulse Rhythm Regular 04/06/25 16:05 Pulse 68 04/06/25 13:30 Respiratory Rate 20 04/06/25 17:18 Respiratory Effort Normal, Non-Labored 04/06/25 16:05 Respiratory Depth Normal 04/06/25 16:05 Respiratory Pattern Normal 04/06/25 16:05 Blood Pressure 123/59 L 04/06/25 17:18 Blood Pressure Mean 80 04/06/25 17:18 Blood Pressure Position Sitting 04/05/25 16:50 Pulse Oximetry 97 04/06/25 17:18 Oxygen Delivery Method Room Air 04/06/25 17:18 Oxygen Flow Rate 0 04/06/25 17:18 Pain Level 0 04/06/25 17:18 Intake & Output 04/05/25 04/06/25 04/06/25 23:59 11:59 23:59 Intake Total 95.375 / 448.000 352.625 / 448.000 Balance 95.375 / 448.000 352.625 / 448.000 Weight 63.503 kg Intake: IV 95.375 / 208.000 112.625 / 208.000 Oral 240 / 240 Other: Urine Color Yellow Urine Appearance Clear Urine Odor Normal Comment pt is independent. Data Completed and Pending Labs on day of discharge: Labs from last 24 hours 04/06/25 04/06/25 04/06/25 19:00 12:16 06:03 WBC 6.47 RBC 2.57 L Hgb 8.1 L Hct 25.3 L MCV 98 H MCH 31.5 MCHC 32.0 RDW 14.9 H Plt Count 118 L MPV 10.2 Immature Gran % 0.3 Neutrophils % 78.8 Lymphocytes % 13.4 Monocytes % 7.0 Eosinophils % 0.3 Basophils % 0.2 Nucleated RBC % 0.0 Absolute Neutrophils 5.10 Absolute Lymphocytes 0.87 L Absolute Monocytes 0.45 Absolute Eosinophils 0.02 Absolute Basophils 0.01 RBC Morphology See Below Hypochromasia 2+ PT 10.2 INR 1.0 APTT 42.3 H 64.6 H 47.6 H Sodium 139 Potassium 4.6 Chloride 105 Carbon Dioxide 28.5 Anion Gap 5.5 BUN 18 Creatinine 0.7 Est GFR (CKD-EPI 2020) 92.98 Glucose 112 H Calcium 8.0 L Magnesium 1.9 Total Bilirubin 0.3 AST 20 ALT 35 Alkaline Phosphatase 156 H Troponin I 396 H* Total Protein 5.7 L Albumin 2.3 L 04/06/25 00:30 WBC RBC Hgb Hct MCV MCH MCHC RDW Plt Count MPV Immature Gran % Neutrophils % Lymphocytes % Monocytes % Eosinophils % Basophils % Nucleated RBC % Absolute Neutrophils Absolute Lymphocytes Absolute Monocytes Absolute Eosinophils Absolute Basophils RBC Morphology Hypochromasia PT INR APTT 54.8 H Sodium Potassium Chloride Carbon Dioxide Anion Gap BUN Creatinine Est GFR (CKD-EPI 2020) Glucose Calcium Magnesium Total Bilirubin AST ALT Alkaline Phosphatase Troponin I Total Protein Albumin PFSH All Active Problems (Updated 04/06/25 @ 01:22 by Corey Romo MD) Thrombocytopenia (Chronic) Macrocytic anemia (Acute) 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) Elevated troponin (Acute) Abdominal pain (Acute) Chest pain (Acute) Gallbladder cancer (Acute) Acute hypoxic respiratory failure (Acute) Borderline hyperglycemia (Chronic) Pain in left acromioclavicular joint (Acute) Tendinitis of long head of biceps brachii of left shoulder (Acute) Calcific tendinitis of left shoulder (Acute) Left rotator cuff tear (Acute 05/17/23) Acute respiratory failure with hypoxia and hypercapnia (Acute) Hypoxemia (Acute) COPD exacerbation (Acute) Screening for colon cancer (Acute) Heart murmur (Acute) GERD (gastroesophageal reflux disease) (Chronic) Fibrocystic breast disease (Acute) Headache (Acute) Chronic pain (Chronic) Asthma, intermittent (Acute) Tobacco use disorder (Chronic) COPD (chronic obstructive pulmonary disease) (Chronic) SOB (shortness of breath) (Acute) Anemia (Chronic) Tubular adenoma of colon (Acute) Medical History Chest pain Per pt. states she has not had chest pain in years, and it was nothing when she had it years ago. Surgical History History of laparoscopic appendectomy Hx of section Hx of hysterectomy Hx of colonoscopy (~04/2021) Social History Smoking/Tobacco Use Status: Former Tobacco Use tobacco type: cigarettes Quit Date: 09/09/21 Tobacco: How many years used: 45 Smoking risk assessment performed?: Yes Alcohol Intake: never Drug use: Never Substance use type: does not use Housing: house Do you feel safe at home: Yes Do you feel safe in your relationship?: Yes Time Spent with Patient Time Spent with Patient: <45 minutes Time was spent: preparing to see the patient(eg.review tests), obtaining and/or reviewing separately otained hiistory, ordering medications,tests, procedures, referring, communicating with other health child care associate teacher, indepentently interpreting results, counseling the patient and care coordination
== END 2025-04-06 23:52 | disposition short-term general hospital (02) ==
LOC: ER 20:13 → EDHOLD 04-06 03:31 → MS 04-06 13:54
PROVIDERS: Admitting Provider Family Medicine; Emergency Provider Emergency Medicine; PCP Nurse Practitioner Family; Responsible Provider Family Medicine; Visit Provider Family Medicine
DX: T45.1X5A Adverse effect of antineoplastic and immunosuppressive drugs, initial encounter (principal); I40.9 Acute myocarditis, unspecified; Z79.899 Other long term (current) drug therapy; C23 Malignant neoplasm of gallbladder; D69.59 Other secondary thrombocytopenia; R07.89 Other chest pain; R10.10 Upper abdominal pain, unspecified; D53.9 Nutritional anemia, unspecified; R74.8 Abnormal levels of other serum enzymes; J44.9 Chronic obstructive pulmonary disease, unspecified; K21.9 Gastro-esophageal reflux disease without esophagitis; J45.20 Mild intermittent asthma, uncomplicated; Z87.891 Personal history of nicotine dependence; C78.7 Secondary malignant neoplasm of liver and intrahepatic bile duct
CPT/HCPCS: 00123; 36415; 71275; 74177; 80053; 83690; 87637; 93005; 96365; 96366; 99285; 81003; 81015; 82248; 83735; 84484; 85025; 85610; 85730; 93010; 99222; 99238; G0378; J1644; J3490

== ENCOUNTER 2025-04-15 00:39 | Outpatient (RCR) | payer MEDICARE, SELFPAY ==
[2025-04-15] MEDS: Normal Saline Flush 10 ML SYR IVP (08:10)
[2025-04-15 08:43] LABS: Abs Immature Grans 0.89 10^3/uL (0.0-0.06); HCT 29.5 % (36.0-46.0); HGB 9.3 g/dL (11.2-15.7); MCH 31.5 pg (27.0-33.0); MCHC 31.5 % (32.0-36.0); MCV 100 fL (80-95); MPV 9.8 fL (8.0-11.0); Platelet Count 307 10^3/uL (130-400); RBC 2.95 10^6/uL (3.93-5.22); RDW 16.2 % (11.7-14.6); RDW-SD 58.4 fL; WBC 20.19 10^3/uL (4.4-10.8)
[2025-04-15 09:16] LABS: ALT 82 U/L (14-59); AST 33 U/L (15-37); Albumin 2.5 g/dL (3.4-5.0); Alkaline Phosphatase 177 U/L (46-116); Anion Gap 7.3 mmol/L (3-11); BUN 19 mg/dL (7-18); Bilirubin, Total 0.3 mg/dL (0.2-1.0); CO2 26.7 mmol/L (21.0-32.0); Calcium 8.2 mg/dL (8.5-10.1); Chloride 105 mmol/L (98-107); Glucose 119 mg/dL (74-106); Magnesium 1.8 mg/dL (1.8-2.4); Potassium 4.0 mmol/L (3.5-5.1); Sodium 139 mmol/L (136-145); TSH 1.61 uIU/mL (0.36-3.74); Total Protein 5.6 g/dL (6.4-8.2)
[2025-04-15 09:31] LABS: Immature Grans % 0.0 %
[2025-04-15 09:32] LABS: Anisocytosis 2+; Macrocytosis 1+; Polychromasia Present
[2025-04-16 10:27] LABS: CA 19-9 518 U/mL (<35)
== END 2025-04-30 23:59 | disposition home or self-care (01) ==
LOC: INF 00:39
PROVIDERS: PCP Nurse Practitioner Family; Visit Provider Internal Medicine Hematology & Oncology
DX: C23 Malignant neoplasm of gallbladder (principal); Z79.899 Other long term (current) drug therapy; Z45.2 Encounter for adjustment and management of vascular access device
CPT/HCPCS: 36591; 80053; 83735; 84439; 84443; 85025; 86301